=== PATIENT | female | born 1960 | race Two or more races ===

== ENCOUNTER → 2016-11-26 | Outpatient (CLI) | payer OTHER, MEDICAID ==
[~2016-11-26] MED LIST: LISI10TA4 PO; LISI20TA5 OR; PERC5TAB8 OR
[2016-11-26 18:26] LABS: ALBUMIN 3.1 GM/DL (3.2-5.2); ALBUMIN/GLOBULIN RATIO 0.82 (1.00-1.93); ALKALINE PHOSPHATASE 121 U/L (45-117); ALT/SGPT 23 U/L (12-78); ANION GAP 8 MEQ/L (8-16); AST/SGOT 15 U/L (15-37); BILIRUBIN,TOTAL 0.4 MG/DL (0.2-1.0); BLOOD UREA NITROGEN 15 MG/DL (7-18); CALCIUM LEVEL 8.9 MG/DL (8.5-10.1); CARBON DIOXIDE LEVEL 27 MEQ/L (21-32); CHLORIDE LEVEL 108 MEQ/L (98-107); CHOLESTEROL LEVEL 158 MG/DL (<200); CREATININE FOR GFR 0.96 MG/DL (0.55-1.02); GLOMERULAR FILTRATION RATE > 60.0 (>51); GLUCOSE, FASTING 128 MG/DL (70-105); POTASSIUM SERUM 4.4 MEQ/L (3.5-5.1); SODIUM LEVEL 143 MEQ/L (136-145); TOTAL PROTEIN 6.9 GM/DL (6.4-8.2); TRIGLYCERIDES LEVEL 354 MG/DL (<150)
== END ==
LOC: M SMT 13:03
PROVIDERS: ATTEND Family Medicine
DX: E78.5 Hyperlipidemia, unspecified (principal); E11.9 Type 2 diabetes mellitus without complications; K75.81 Nonalcoholic steatohepatitis (NASH); K31.84 Gastroparesis; Z86.010 Personal history of colon polyps; E55.9 Vitamin D deficiency, unspecified

== ENCOUNTER → 2016-11-26 | Outpatient (CLI) | payer OTHER, MEDICAID ==
[2016-11-26 18:35] LABS: MAGNESIUM LEVEL 2.1 MG/DL (1.8-2.4)
== END ==
LOC: M SMT 13:00
PROVIDERS: ATTEND Internal Medicine Gastroenterology
DX: K75.81 Nonalcoholic steatohepatitis (NASH) (principal); K21.9 Gastro-esophageal reflux disease without esophagitis; K31.84 Gastroparesis; Z86.010 Personal history of colon polyps; E55.9 Vitamin D deficiency, unspecified

== ENCOUNTER → 2016-12-21 | Outpatient (CLI) | payer OTHER, MEDICAID ==
[2016-12-21 13:23] LABS: MEAN CORPUSCULAR HEMOGLOBIN 24.4 pg (27.0-33.0); MEAN CORPUSCULAR HGB CONC 30.6 g/dl (32.0-36.5); MEAN CORPUSCULAR VOLUME 79.8 fl (80.0-96.0); RED CELL DISTRIBUTION WIDTH 16.9 % (11.5-14.5); WHITE BLOOD COUNT 8.9 K/mm3 (4.0-10.0)
[2016-12-21 13:54] LABS: FERRITIN 5 NG/ML (8-252); FOLATE > 24.0 NG/ML; VITAMIN B12 LEVEL 275 PG/ML
== END ==
LOC: M SMT 09:33
PROVIDERS: ATTEND Family Medicine
DX: D64.9 Anemia, unspecified (principal)

== ENCOUNTER → 2017-01-20 | Outpatient (CLI) | payer OTHER, MEDICAID ==
[~2017-01-20] MED LIST changes: +ACET1TAB16 PO; +B121000T PO; +CALCGRA15 PO; +FERR325T3 PO; +FOLI1TAB4 PO; +LYRI150C PO; +METH2.5TA PO; +METO-346 PO; +MULTCAP11 PO
[2017-01-20 19:01] LABS: BASO % 0.8 % (0.0-1.0); EOS # 0.3 K/mm3 (0.0-0.50); EOS % 5.5 % (0.0-3.0); LARGE UNSTAINED CELL # 0.1 K/mm3 (0.0-0.4); LARGE UNSTAINED CELL % 1.8 % (0.0-4.0); LYMPH # 1.8 K/mm3 (1.5-4.5); MEAN CORPUSCULAR HEMOGLOBIN 24.8 pg (27.0-33.0); MEAN CORPUSCULAR HGB CONC 30.2 g/dl (32.0-36.5); MONO # 0.3 K/mm3 (0.0-0.8); MONO % 5.5 % (0.0-5.0); NEUTROPHILS # 3.4 K/mm3 (1.8-7.7); NEUTROPHILS % 57.4 % (36.0-66.0); PLATELET COUNT, AUTOMATED 327 k/mm3 (150-450); RED CELL DISTRIBUTION WIDTH 17.7 % (11.5-14.5); WHITE BLOOD COUNT 5.8 K/mm3 (4.0-10.0)
[2017-01-20 19:05] LABS: ADD MORPHOLOGY? YES
[2017-01-20 19:11] LABS: ALBUMIN 2.9 GM/DL (3.2-5.2); ALBUMIN/GLOBULIN RATIO 0.81 (1.00-1.93); ALKALINE PHOSPHATASE 98 U/L (45-117); ALT/SGPT 24 U/L (12-78); ANION GAP 5 MEQ/L (8-16); AST/SGOT 18 U/L (15-37); BILIRUBIN,TOTAL 0.6 MG/DL (0.2-1.0); BLOOD UREA NITROGEN 11 MG/DL (7-18); CALCIUM LEVEL 8.5 MG/DL (8.5-10.1); CARBON DIOXIDE LEVEL 28 MEQ/L (21-32); CHLORIDE LEVEL 108 MEQ/L (98-107); CREATININE FOR GFR 0.99 MG/DL (0.55-1.02); FERRITIN 15 NG/ML (8-252); GLOMERULAR FILTRATION RATE > 60.0 (>51); GLUCOSE, FASTING 120 MG/DL (70-105); MAGNESIUM LEVEL 2.4 MG/DL (1.8-2.4); PERCENT SATURATION 68.2 % (13.2-37.4); PHOSPHORUS LEVEL 3.5 MG/DL (2.5-4.9); POTASSIUM SERUM 4.1 MEQ/L (3.5-5.1); SODIUM LEVEL 141 MEQ/L (136-145); TOTAL IRON BINDING CAPACITY 261 UG/DL (250-450); TOTAL PROTEIN 6.5 GM/DL (6.4-8.2)
[2017-01-20 19:49] LABS: ANISOCYTOSIS 1+; HYPOCHROMASIA 1+; MICROCYTOSIS 1+
[2017-01-21 12:01] LABS: PRETREATED FOLATE FOR RBCFOL 12.5 NG/ML
== END ==
LOC: M SMT 13:57
PROVIDERS: ATTEND Surgery
DX: K91.2 Postsurgical malabsorption, not elsewhere classified (principal); Z98.84 Bariatric surgery status

== ENCOUNTER → 2017-02-25 | Outpatient (CLI) | payer OTHER, MEDICAID | LOC: M SMT 14:00 | PROVIDERS: ATTEND Internal Medicine Gastroenterology | DX: E55.9 Vitamin D deficiency, unspecified (principal) ==

== ENCOUNTER → 2017-03-28 | Outpatient (CLI) | payer OTHER, MEDICAID ==
--- NOTE | 2017-03-28 11:10 | REP ---
PA and lateral chest: Comparison is 09/08/2015. There is a cervical spine stabilization plate, unchanged. The lung osuna are clear. The cardiac size is normal The felicita, mediastinum, and bony thorax are unremarkable. Impression: Negative PA and lateral chest. There is no interval change
[2017-03-28 17:53] LABS: ALBUMIN 3.1 GM/DL (3.2-5.2); ANION GAP 6 MEQ/L (8-16); BLOOD UREA NITROGEN 10 MG/DL (7-18); CARBON DIOXIDE LEVEL 28 MEQ/L (21-32); CHLORIDE LEVEL 111 MEQ/L (98-107); CREATININE FOR GFR 0.82 MG/DL (0.55-1.02); GLOMERULAR FILTRATION RATE > 60.0 (>51); GLUCOSE, FASTING 81 MG/DL (70-105); PHOSPHORUS LEVEL 4.2 MG/DL (2.5-4.9); SODIUM LEVEL 145 MEQ/L (136-145)
[2017-03-28 19:25] LABS: CALCIUM OXALATE CRYSTALS LARGE
== END ==
LOC: M CLY 09:49
PROVIDERS: ATTEND Dentist Oral and Maxillofacial Surgery
DX: Z01.818 Encounter for other preprocedural examination (principal); K08.409 Partial loss of teeth, unspecified cause, unspecified class; E66.01 Morbid (severe) obesity due to excess calories; E11.9 Type 2 diabetes mellitus without complications; I10 Essential (primary) hypertension; E78.5 Hyperlipidemia, unspecified; M54.16 Radiculopathy, lumbar region; K21.9 Gastro-esophageal reflux disease without esophagitis; M06.9 Rheumatoid arthritis, unspecified; M25.551 Pain in right hip
CPT/HCPCS: 71020; 80069; 81001; 83036; 83630; G0463

== ENCOUNTER → 2017-03-28 | Outpatient (REF) | payer OTHER, MEDICAID | LOC: M SFHCCLAY 09:31 | PROVIDERS: ATTEND Family Medicine | DX: E11.9 Type 2 diabetes mellitus without complications (principal) ==

== ENCOUNTER → 2017-03-28 | Outpatient (REF) | payer OTHER, MEDICAID | LOC: M LAB REF 11:15 | PROVIDERS: ATTEND Internal Medicine Gastroenterology | DX: R19.7 Diarrhea, unspecified (principal) ==

== ENCOUNTER 2017-04-01 07:56 | Day surgery (SDC) | payer OTHER, MEDICAID ==
[~2017-04-01] VITALS: Ht 167.6 cm; Wt 115.2 kg
[~2017-04-01 07:56] MED LIST changes: -ACET1TAB16 PO
[2017-04-01] MEDS ORDERED: LIDOCAINE 1% SDV 5 ML VIAL SQ ONE (08:00)
[2017-04-01] MEDS ORDERED: LR 1,000 ML IV ONE (08:00)
[2017-04-01] MEDS ORDERED: LIDOCAINE 2% W/ EPINEPHRINE 1.7 ML DENTAL INJ As Ordered ONE (08:37)
[2017-04-01] MEDS ORDERED: MIDAZOLAM INJ 2 MG/2 ML VIAL (J2250) As Ordered ONE (08:45)
[2017-04-01] MEDS ORDERED: PROPOFOL 200 MG/20 ML VIAL As Ordered ONE (08:45)
[2017-04-01] MEDS ORDERED: ROCURONIUM BROMIDE 50 MG/5 ML VIAL/SYRINGE As Ordered ONE (08:45)
[2017-04-01] MEDS ORDERED: fentaNYL 100 MCG/2 ML INJECTION (J3010) As Ordered ONE (08:45)
[2017-04-01] MEDS ORDERED: LIDOCAINE 2% INJ 100 MG/5 ML SDV (FOR ANES.) As Ordered ONE (08:45)
[2017-04-01] MEDS ORDERED: ONDANSETRON 4MG/2ML VIAL (J2405) As Ordered ONE (08:45)
[2017-04-01] MEDS ORDERED: SEVOFLURANE INHAL SOLN 250 ML BTL As Ordered ONE (08:47)
[2017-04-01] MEDS ORDERED: ACET1TAB16 PO (09:14)
[2017-04-01] MEDS ORDERED: dexameTHASONE 4 MG/ML 1ML VIAL (J1100) As Ordered ONE (09:22)
[2017-04-01] MEDS ORDERED: GLYCOPYRROLATE INJ 0.2 MG/ML 2 ML VIAL As Ordered ONE (09:44)
[2017-04-01] MEDS ORDERED: NEOSTIGMINE 1MG/ML 5 ML SYRINGE (J2710) As Ordered ONE (09:44)
[2017-04-01] MEDS ORDERED: LABETALOL HCL 100 MG/20 ML VIAL As Ordered ONE (09:56)
--- NOTE | 2017-04-01 10:33 | RO ---
DATE OF PROCEDURE: 04/01/2017 PREPROCEDURE DIAGNOSIS: Carious non-restorable teeth numbers 1, 16, 31 and 32. POSTPROCEDURE DIAGNOSIS: Carious non-restorable teeth numbers 1, 16, 31 and 32. PROCEDURE: Surgical removal of teeth numbers 1,16, 31 and 32. SURGEON: Dr. Saulo Cortez. DRUMS TEACHER: ANESTHESIA: General endotracheal. INDICATION: This patient is a 56-year-old female with a complicated medical history including hypertension, rheumatoid arthritis, diabetes and anxiety on multiple medications. Due to the extent of the procedure and patient's history, it was felt necessary to be performed in the operating room under general anesthesia. DESCRIPTION OF PROCEDURE: The patient was brought to the operating room per anesthesia and placed in supine on the operating room table, wherein general endotracheal anesthesia was undertaken without difficult. After using sterile prep and drape for intraoral procedure was performed a throat pack was placed. 2.5 mL of Xylocaine with epinephrine was injected along the surgical sites after placement of the throat pack and the usual sterile prep and drape for intraoral procedure was performed. Attention first turned to tooth #16 after laying localized flap buccally and raised with the periosteal elevator, buccal bone was removed as necessary for access and then the tooth was then elevated and delivered with upper forceps. The area as curetted. The tissues reapproximated. Gelfoam placed for hemostasis. Attention then turned to the right side after movement of the oral endotracheal tube from the right to the left and re-secured per anesthesia. Attention then turned to teeth numbers 32 and 31. A 15-blade used to make a full thickness periosteal incision and carried from the right external oblique ridge forward to the area of the edentulous 30. Full thickness flap was then raised with the periosteal elevator exposing the area. Buccal bone was removed with a Eid drill and copious sterile saline by way of bone trench along the teeth. Tooth crown of #31 fractured off and the roots were then having to be received separately. Tooth #32 removed in toto. The buccal bone was then smoothed. Sulcus was curetted irrigated, copiously enclosed with Gelfoam and #3-0 gut interrupted sutures for hemostasis. Attention, lastly turned to tooth #1. Again, after laying localized buccal flap , buccal bone was then removed as necessary for access. The tooth was then elevated and delivered with an upper forceps. The socket was curetted. Gelfoam was placed. Tissues reapproximated. At the termination of the procedure, the oropharynx was inspected and found to be free of debris. A throat pack was removed and the patient was awakened per anesthesia. Estimated blood loss was less than 10 mL. Fluids of 800 mL of crystalloid solution. Needle and sponge count was correct. The patient was extubated in the operating room and taken to the recovery room breathing spontaneously in stable condition. Teeth were sent for identification only to pathology. MARY
[2017-04-01] MEDS ORDERED: ACETAMINOPHEN 325 MG TAB As Ordered ONE (10:45)
[2017-04-01] MEDS ORDERED: ACETAMINOPHEN TAB 650MG DOSE (2X325MG) PO ONE (11:00)
[2017-04-01] MEDS ORDERED: LR 1,000 ML IV SCH (11:00)
[2017-04-01] MEDS ORDERED: ONDANSETRON 4MG/2ML VIAL (J2405) IV PRN (11:00)
[2017-04-01] MEDS ORDERED: fentaNYL 100 MCG/2 ML INJECTION (J3010) IV PRN (11:00)
[2017-04-01 11:25] VITALS: BP 149/65
== END 2017-04-01 11:40 | disposition home or self-care (01) ==
LOC: M SDC 07:56
PROVIDERS: ATTEND Dentist Oral and Maxillofacial Surgery
DX: K02.9 Dental caries, unspecified (principal); K08.89 Other specified disorders of teeth and supporting structures; I10 Essential (primary) hypertension; M06.9 Rheumatoid arthritis, unspecified; E11.9 Type 2 diabetes mellitus without complications; F41.9 Anxiety disorder, unspecified; E66.01 Morbid (severe) obesity due to excess calories; E78.5 Hyperlipidemia, unspecified; M54.16 Radiculopathy, lumbar region; K21.9 Gastro-esophageal reflux disease without esophagitis; M25.551 Pain in right hip; K44.9 Diaphragmatic hernia without obstruction or gangrene; R06.83 Snoring; G47.30 Sleep apnea, unspecified; Z88.5 Allergy status to narcotic agent; Z88.8 Allergy status to other drugs, medicaments and biological substances; Z91.040 Latex allergy status; Z91.041 Radiographic dye allergy status; Z91.048 Other nonmedicinal substance allergy status; Z79.899 Other long term (current) drug therapy; Z87.891 Personal history of nicotine dependence; Z98.84 Bariatric surgery status; Z86.79 Personal history of other diseases of the circulatory system; Z90.710 Acquired absence of both cervix and uterus
CPT/HCPCS: 41899; 88300; J1100; J2250; J2405; J2710; J3010

== ENCOUNTER 2017-06-22 08:17 | Outpatient (RCR) | payer OTHER, MEDICAID | END 2017-07-10 | LOC: M PT 07-06 14:22 | DX: Z51.89 Encounter for other specified aftercare (principal); M70.60 Trochanteric bursitis, unspecified hip; M62.9 Disorder of muscle, unspecified | CPT/HCPCS: 97110 ==

== ENCOUNTER → 2017-06-29 | Outpatient (CLI) | payer OTHER, MEDICAID ==
[~2017-06-29] MED LIST changes: +ACET1TAB16 PO
--- NOTE | 2017-06-29 20:12 | REP ---
Clinical: Followup renal cyst. Comparison: 06/28/2016. Technique: Real time saeed scale ultrasound examination using curved array transducer. Findings: The kidneys are normal in reniform shape and demonstrate increased central sinus fat suggesting medical renal disease. No evidence for hydronephrosis or perinephric stranding. Right kidney measures 11.9 x 6.5 x 4.0 cm and includes 17 x 16 x 14 mm upper pole simple cyst. The second cyst identified on prior examination is not visualized on current exam. No evidence for nephrolithiasis or mass lesion. Left kidney measures 11.8 x 5.3 x 5.9 cm without cyst and includes 5.5 mm echogenic focus in the lower pole which is nonspecific and may represent small angiomyolipoma or calcification. Bladder is grossly unremarkable. Impression: 1. Right kidney currently measures a single 17 mm upper pole simple cyst, and the second cyst identified on prior examination is no longer visible. 2. 5.5 mm calcification in the lower pole left kidney is nonspecific and may represent small calcification or angiomyolipoma. Signed by Mendel Colon MD 06/29/2017 05:03 P
== END ==
LOC: M RAD 10:52
PROVIDERS: ATTEND Urology
DX: Q61.00 Congenital renal cyst, unspecified (principal)

== ENCOUNTER → 2017-06-30 | Outpatient (CLI) | payer OTHER, MEDICAID ==
--- NOTE | 2017-06-30 09:16 | REP ---
Right shoulder series: Three views. History: Right shoulder pain for 2 weeks. No injury or trauma. Comparison right shoulder radiographs are from February 12, 2011. Findings: The right glenohumeral and acromioclavicular joints are normally aligned. There is a faint calcific density at the inferior margin of the glenohumeral articulation which may reflect calcific tendonitis change. There is also some bony spurring at the AC joint. Periarticular soft tissues are otherwise unremarkable. Impression: Mild osteoarthritic spurring at the AC joint and small calcific density inferior to the glenohumeral articulation may reflect tendonitis or bursitis.
== END ==
LOC: M CLY 08:06
PROVIDERS: ATTEND Family Medicine
DX: M25.70 Osteophyte, unspecified joint (principal); R93.7 Abnormal findings on diagnostic imaging of other parts of musculoskeletal system

== ENCOUNTER → 2017-07-05 | Outpatient (CLI) | payer OTHER, MEDICAID ==
[2017-07-05 09:56] LABS: BASO # 0.1 10^3/uL (0.0-0.2); BASO % 0.9 % (0.0-1.0); EOS # 0.2 10^3/uL (0.0-0.50); EOS % 2.9 % (0.0-3.0); IMMATURE GRANULOCYTE % 0.5 % (0-0); LYMPH # 2.5 10^3/uL (1.5-4.5); LYMPH % 31.7 % (24.0-44.0); MEAN CORPUSCULAR HEMOGLOBIN 27.8 pg (27.0-33.0); MEAN CORPUSCULAR HGB CONC 31.7 g/dl (32.0-36.5); MEAN CORPUSCULAR VOLUME 87.4 fl (80.0-96.0); MONO # 0.4 10^3/uL (0.0-0.8); MONO % 5.2 % (0.0-5.0); NEUTROPHILS # 4.7 10^3/uL (1.8-7.7); NEUTROPHILS % 58.8 % (36.0-66.0); PLATELET COUNT, AUTOMATED 359 10^3/uL (150-450); WHITE BLOOD COUNT 7.9 10^3/uL (4.0-10.0)
[2017-07-05 10:23] LABS: ALBUMIN 3.3 GM/DL (3.2-5.2); ALBUMIN/GLOBULIN RATIO 0.87 (1.00-1.93); ALKALINE PHOSPHATASE 118 U/L (45-117); ALT/SGPT 19 U/L (12-78); ANION GAP 6 MEQ/L (8-16); AST/SGOT 16 U/L (7-37); BILIRUBIN,TOTAL 0.5 MG/DL (0.2-1.0); BLOOD UREA NITROGEN 11 MG/DL (7-18); CALCIUM LEVEL 8.6 MG/DL (8.5-10.1); CARBON DIOXIDE LEVEL 29 MEQ/L (21-32); CHLORIDE LEVEL 110 MEQ/L (98-107); CREATININE FOR GFR 0.84 MG/DL (0.55-1.02); FERRITIN 82 NG/ML (8-252); GLOMERULAR FILTRATION RATE > 60.0 (>51); GLUCOSE, FASTING 112 MG/DL (70-105); MAGNESIUM LEVEL 2.3 MG/DL (1.8-2.4); PHOSPHORUS LEVEL 4.4 MG/DL (2.5-4.9); POTASSIUM SERUM 4.2 MEQ/L (3.5-5.1); SODIUM LEVEL 145 MEQ/L (136-145); TOTAL PROTEIN 7.1 GM/DL (6.4-8.2)
[2017-07-05 10:27] LABS: VITAMIN B12 LEVEL 1179 PG/ML (247-911)
[2017-07-05 11:53] LABS: PRETREATED FOLATE FOR RBCFOL 16.3 NG/ML
== END ==
LOC: M LAB 09:19
PROVIDERS: ATTEND Surgery
DX: E55.9 Vitamin D deficiency, unspecified (principal); K91.2 Postsurgical malabsorption, not elsewhere classified; E61.1 Iron deficiency; Z98.84 Bariatric surgery status

== ENCOUNTER 2017-07-12 14:25 | Outpatient (RCR) | payer OTHER, MEDICAID | END 2017-08-10 | LOC: M PT 14:25 | DX: Z51.89 Encounter for other specified aftercare (principal); M71.551 Other bursitis, not elsewhere classified, right hip; S76.311A Strain of muscle, fascia and tendon of the posterior muscle group at thigh level, right thigh, initial encounter | CPT/HCPCS: 97110 ==

== ENCOUNTER → 2017-07-25 | Outpatient (CLI) | payer OTHER, MEDICAID | LOC: M SMT 10:50 | DX: N20.0 Calculus of kidney (principal) | CPT/HCPCS: 74018 ==

== ENCOUNTER 2017-08-04 15:28 | Outpatient (RCR) | payer OTHER, MEDICAID | END 2017-08-10 | LOC: M PT 15:28 | DX: Z51.89 Encounter for other specified aftercare (principal); M25.511 Pain in right shoulder | CPT/HCPCS: 97110 ==

== ENCOUNTER → 2017-08-15 | Outpatient (CLI) | payer OTHER, MEDICAID | LOC: M RAD 16:52 | DX: N20.0 Calculus of kidney (principal) | CPT/HCPCS: 74176 ==

== ENCOUNTER 2017-08-16 14:10 | Outpatient (RCR) | payer OTHER, MEDICAID | END 2017-09-07 | LOC: M PT 14:10 | DX: Z51.89 Encounter for other specified aftercare (principal); M70.61 Trochanteric bursitis, right hip; S76.011A Strain of muscle, fascia and tendon of right hip, initial encounter | CPT/HCPCS: 97110 ==

== ENCOUNTER → 2017-10-27 | Outpatient (REF) | payer OTHER, MEDICAID ==
[2017-10-28 11:33] LABS: BASO # 0.1 10^3/uL (0.0-0.2); BASO % 1.3 % (0.0-1.0); EOS # 0.4 10^3/uL (0.0-0.50); EOS % 5.3 % (0.0-3.0); HEMATOCRIT 38.2 % (36.0-47.0); HEMOGLOBIN 12.2 g/dl (12.0-15.5); IMMATURE GRANULOCYTE % 0.4 % (0-3.0); LYMPH # 2.2 10^3/uL (1.5-4.5); LYMPH % 31.5 % (24.0-44.0); MEAN CORPUSCULAR HEMOGLOBIN 28.4 pg (27.0-33.0); MEAN CORPUSCULAR HGB CONC 31.9 g/dl (32.0-36.5); MEAN CORPUSCULAR VOLUME 88.8 fl (80.0-96.0); MONO # 0.6 10^3/uL (0.0-0.8); MONO % 8.5 % (0.0-5.0); NEUTROPHILS # 3.7 10^3/uL (1.8-7.7); PLATELET COUNT, AUTOMATED 304 10^3/uL (150-450); RED CELL DISTRIBUTION WIDTH 13.2 % (11.5-14.5)
[2017-10-28 11:53] LABS: ANION GAP 3 MEQ/L (8-16); BLOOD UREA NITROGEN 11 MG/DL (7-18); CALCIUM LEVEL 8.6 MG/DL (8.5-10.1); CARBON DIOXIDE LEVEL 30 MEQ/L (21-32); CHLORIDE LEVEL 113 MEQ/L (98-107); CREATININE FOR GFR 0.77 MG/DL (0.55-1.30); GLOMERULAR FILTRATION RATE > 60.0 (>51); GLUCOSE, FASTING 105 MG/DL (70-100); POTASSIUM SERUM 4.1 MEQ/L (3.5-5.1); SODIUM LEVEL 146 MEQ/L (136-145)
== END ==
LOC: M SFHCCLAY 14:18
DX: M06.9 Rheumatoid arthritis, unspecified (principal); I10 Essential (primary) hypertension; Z98.84 Bariatric surgery status
CPT/HCPCS: 80048

== ENCOUNTER 2017-11-03 06:55 | Outpatient (RCR) | payer OTHER, MEDICAID | END 2017-11-07 | LOC: M PT 06:55 | DX: Z51.89 Encounter for other specified aftercare (principal); M75.01 Adhesive capsulitis of right shoulder | CPT/HCPCS: 97110 ==

== ENCOUNTER 2017-12-13 10:34 | Outpatient (RCR) | payer OTHER, MEDICAID | END 2018-01-07 | LOC: M PT 10:34 | DX: Z51.89 Encounter for other specified aftercare (principal); M75.01 Adhesive capsulitis of right shoulder | CPT/HCPCS: 97110 ==

== ENCOUNTER → 2017-12-27 | Outpatient (CLI) | payer OTHER, MEDICAID ==
[2017-12-27 15:15] LABS: BASO # 0.1 10^3/uL (0.0-0.2); BASO % 1.7 % (0.0-1.0); EOS # 0.5 10^3/uL (0.0-0.50); EOS % 7.4 % (0.0-3.0); HEMATOCRIT 40.4 % (36.0-47.0); IMMATURE GRANULOCYTE % 0.1 % (0-3.0); LYMPH # 2.4 10^3/uL (1.5-4.5); LYMPH % 33.9 % (24.0-44.0); MEAN CORPUSCULAR HEMOGLOBIN 28.5 pg (27.0-33.0); MEAN CORPUSCULAR HGB CONC 32.2 g/dl (32.0-36.5); MEAN CORPUSCULAR VOLUME 88.6 fl (80.0-96.0); MONO # 0.5 10^3/uL (0.0-0.8); MONO % 6.9 % (0.0-5.0); NEUTROPHILS # 3.6 10^3/uL (1.8-7.7); PLATELET COUNT, AUTOMATED 321 10^3/uL (150-450); RED BLOOD COUNT 4.56 10^6/uL (4.00-5.40); RED CELL DISTRIBUTION WIDTH 13.2 % (11.5-14.5); WHITE BLOOD COUNT 7.2 10^3/uL (4.0-10.0)
[2017-12-27 15:17] LABS: HEMATOCRIT 40.4 % (36.0-47.0)
[2017-12-27 15:40] LABS: TOTAL 25(OH) VITAMIN D 22.1 NG/ML (30.0-100.0); VITAMIN B12 LEVEL 872 PG/ML (247-911)
[2017-12-27 17:30] LABS: ALBUMIN 3.2 GM/DL (3.2-5.2); ALBUMIN/GLOBULIN RATIO 0.82 (1.00-1.93); ALKALINE PHOSPHATASE 116 U/L (45-117); ALT/SGPT 26 U/L (12-78); ANION GAP 8 MEQ/L (8-16); AST/SGOT 16 U/L (7-37); BILIRUBIN,TOTAL 0.4 MG/DL (0.2-1.0); BLOOD UREA NITROGEN 16 MG/DL (7-18); CALCIUM LEVEL 8.6 MG/DL (8.5-10.1); CARBON DIOXIDE LEVEL 30 MEQ/L (21-32); CHLORIDE LEVEL 107 MEQ/L (98-107); CREATININE FOR GFR 0.96 MG/DL (0.55-1.30); FERRITIN 53 NG/ML (8-252); GLOMERULAR FILTRATION RATE > 60.0 (>51); GLUCOSE, FASTING 76 MG/DL (70-100); IRON (FE) 46 UG/DL (50-170); MAGNESIUM LEVEL 2.1 MG/DL (1.8-2.4); PERCENT SATURATION 17.7 % (13.2-45.0); POTASSIUM SERUM 4.2 MEQ/L (3.5-5.1); SODIUM LEVEL 145 MEQ/L (136-145); TOTAL IRON BINDING CAPACITY 260 UG/DL (250-450); TOTAL PROTEIN 7.1 GM/DL (6.4-8.2)
[2017-12-27 19:11] LABS: ESTIMATED AVERAGE GLUCOSE 105 MG/DL (60-110); HEMOGLOBIN A1c 5.3 %
[2017-12-30 12:02] LABS: PRETREATED FOLATE FOR RBCFOL 11.3 NG/ML; RBC FOLATE 587.4 NG/ML (280-791)
== END ==
LOC: M LAB 14:31
DX: K91.2 Postsurgical malabsorption, not elsewhere classified (principal); Z98.84 Bariatric surgery status; E55.9 Vitamin D deficiency, unspecified
CPT/HCPCS: 83550

== ENCOUNTER 2018-02-06 15:42 | Outpatient (RCR) | payer OTHER, MEDICAID | END 2018-02-07 | disposition home or self-care (01) | LOC: M PT 15:42 | DX: Z47.89 Encounter for other orthopedic aftercare (principal); M75.41 Impingement syndrome of right shoulder; M25.511 Pain in right shoulder | CPT/HCPCS: 97162 ==

== ENCOUNTER 2018-02-13 17:10 | Outpatient (RCR) | payer OTHER, MEDICAID | END 2018-03-10 | LOC: M PT 17:10 | DX: Z47.89 Encounter for other orthopedic aftercare (principal); M75.41 Impingement syndrome of right shoulder; M25.511 Pain in right shoulder; M75.01 Adhesive capsulitis of right shoulder | CPT/HCPCS: 97110 ==

== ENCOUNTER 2018-03-22 15:15 | Outpatient (RCR) | payer OTHER, MEDICAID | END 2018-04-09 | LOC: M PT 15:15 | DX: Z47.89 Encounter for other orthopedic aftercare (principal); M75.01 Adhesive capsulitis of right shoulder; M25.511 Pain in right shoulder; M75.41 Impingement syndrome of right shoulder | CPT/HCPCS: 97110 ==

== ENCOUNTER 2018-05-03 09:26 | Outpatient (RCR) | payer OTHER, MEDICAID | END 2018-05-10 | LOC: M PT 09:26 | DX: Z47.89 Encounter for other orthopedic aftercare (principal); M75.01 Adhesive capsulitis of right shoulder; M75.41 Impingement syndrome of right shoulder; M25.511 Pain in right shoulder | CPT/HCPCS: 97110 ==

== ENCOUNTER 2018-05-16 12:11 | Outpatient (RCR) | payer OTHER, MEDICAID | END 2018-06-09 | LOC: M PT 12:11 | DX: M75.01 Adhesive capsulitis of right shoulder (principal); M75.41 Impingement syndrome of right shoulder; M25.511 Pain in right shoulder | CPT/HCPCS: 97110 ==

== ENCOUNTER 2018-06-13 12:08 | Outpatient (RCR) | payer OTHER, MEDICAID ==
[~2018-06-13 12:08] MED LIST changes: -FOLI1TAB4 PO; +FOLI1TAB5 PO; +METH2.5T48 PO; -METH2.5TA PO
[2018-06-13] MEDS ORDERED: LOSA25TA33 PO (14:19)
[2018-06-13] MEDS ORDERED: CYCL5TAB PO (17:36)
== END 2018-07-10 ==
LOC: M PT 12:08
PROVIDERS: ATTEND Orthopaedic Surgery
DX: Z47.89 Encounter for other orthopedic aftercare (principal); M75.01 Adhesive capsulitis of right shoulder; M75.41 Impingement syndrome of right shoulder; M25.511 Pain in right shoulder
CPT/HCPCS: 97110; 97140; G8985; G8986

== ENCOUNTER 2018-06-13 13:58 | Emergency (ER) | payer OTHER, MEDICAID ==
[2018-06-13] MEDS: MORPHINE 2 MG/ML 1ML SYRINGE (J2270) IV (15:29)
== END 2018-06-13 18:43 | disposition home or self-care (01) ==
LOC: M ED 13:58
DX: S00.03XA Contusion of scalp, initial encounter (principal); V43.52XA Car driver injured in collision with other type car in traffic accident, initial encounter; Y92.099 Unspecified place in other non-institutional residence as the place of occurrence of the external cause; Y93.9 Activity, unspecified; Y99.9 Unspecified external cause status; I10 Essential (primary) hypertension; M50.321 Other cervical disc degeneration at C4-C5 level; Z98.1 Arthrodesis status; I51.7 Cardiomegaly; J34.1 Cyst and mucocele of nose and nasal sinus; M46.06 Spinal enthesopathy, lumbar region; M51.34 Other intervertebral disc degeneration, thoracic region; Z79.899 Other long term (current) drug therapy; Z91.041 Radiographic dye allergy status; Z91.013 Allergy to seafood; Z91.89 Other specified personal risk factors, not elsewhere classified; Z91.040 Latex allergy status; Z88.8 Allergy status to other drugs, medicaments and biological substances; Z88.5 Allergy status to narcotic agent
CPT/HCPCS: J2270

== ENCOUNTER → 2018-06-22 | Outpatient (CLI) | payer OTHER, MEDICAID | LOC: M CLY 10:35 | DX: R07.89 Other chest pain (principal) | CPT/HCPCS: 71100 ==

== ENCOUNTER → 2018-07-14 | Outpatient (CLI) | payer OTHER ==
[~2018-07-14] MED LIST changes: +CYCL5TAB PO; +FOLI1TAB11 PO; -FOLI1TAB5 PO; +LOSA25TA14 PO
--- NOTE | 2018-07-14 11:57 | REP ---
MR BRAIN WITHOUT CONTRAST: HISTORY: Post-traumatic headache. COMPARISON: CT 06/13/2018 Several punctate areas of increased signal intensity on T2-weighted images are present in the subcortical white matter. This represents small vessel ischemic disease. There is no intraparenchymal hemorrhage, infarct, mass or midline shift. The ventricular system is normal in appearance. The cortical sulci are dilated consistent with minimal volume loss. There is no extracerebral collection. A retention cyst is present in the left maxillary sinus. IMPRESSION: 1. Minimal small vessel ischemic disease. 2. Minimal volume loss. Electronically Signed by Bill Medrano MD 07/14/2018 11:59 A
== END ==
LOC: M PLARAD 08:58
PROVIDERS: ATTEND Family Medicine
DX: R90.82 White matter disease, unspecified (principal); G44.311 Acute post-traumatic headache, intractable; S00.03XD Contusion of scalp, subsequent encounter; V89.2XXD Person injured in unspecified motor-vehicle accident, traffic, subsequent encounter; Y92.410 Unspecified street and highway as the place of occurrence of the external cause

== ENCOUNTER → 2018-10-03 | Outpatient (REF) | payer MEDICARE, MEDICAID, OTHER ==
[2018-10-03 19:00] LABS: ALBUMIN 3.4 GM/DL (3.2-5.2); ALT/SGPT 25 U/L (12-78); AMYLASE 36 U/L (25-115); BASO # 0.1 10^3/uL (0.0-0.2); BASO % 1.3 % (0.0-1.0); BILIRUBIN,TOTAL 0.5 MG/DL (0.2-1.0); BLOOD UREA NITROGEN 10 MG/DL (7-18); CALCIUM LEVEL 8.6 MG/DL (8.5-10.1); CARBON DIOXIDE LEVEL 28 MEQ/L (21-32); CHLORIDE LEVEL 109 MEQ/L (98-107); EOS # 0.3 10^3/uL (0.0-0.50); EOS % 3.8 % (0.0-3.0); GLOMERULAR FILTRATION RATE > 60.0 (>51); GLUCOSE, FASTING 91 MG/DL (70-100); HEMATOCRIT 41.1 % (36.0-47.0); HEMOGLOBIN 13.1 g/dl (12.0-15.5); LIPASE 133 U/L (73-393); LYMPH # 2.2 10^3/uL (1.5-4.5); LYMPH % 31.9 % (24.0-44.0); MEAN CORPUSCULAR HEMOGLOBIN 28.7 pg (27.0-33.0); MEAN CORPUSCULAR HGB CONC 31.9 g/dl (32.0-36.5); MEAN CORPUSCULAR VOLUME 90.1 fl (80.0-96.0); MONO # 0.6 10^3/uL (0.0-0.8); MONO % 8.3 % (0.0-5.0); NEUTROPHILS # 3.8 10^3/uL (1.8-7.7); NEUTROPHILS % 54.6 % (36.0-66.0); PLATELET COUNT, AUTOMATED 324 10^3/uL (150-450); POTASSIUM SERUM 4.1 MEQ/L (3.5-5.1); RED BLOOD COUNT 4.56 10^6/uL (4.00-5.40); SODIUM LEVEL 144 MEQ/L (136-145); TOTAL PROTEIN 6.7 GM/DL (6.4-8.2)
== END ==
LOC: M SFHCCLAY 11:09
PROVIDERS: ATTEND Family Medicine
DX: R10.11 Right upper quadrant pain (principal)
CPT/HCPCS: 80053; 82150; 83690; 85025; G0463

== ENCOUNTER → 2018-11-13 | Outpatient (REF) | payer MEDICARE, MEDICAID, OTHER ==
[2018-11-13 19:31] LABS: RUBELLA IgG QUALITATIVE IMMUNE (IMMUNE)
== END ==
LOC: M SFHCCLAY 11:20
PROVIDERS: ATTEND Family Medicine
DX: Z01.84 Encounter for antibody response examination (principal)
CPT/HCPCS: 86580; 86762; 86765; G0463

== ENCOUNTER → 2018-12-05 | Outpatient (CLI) | payer MEDICARE, MEDICAID, OTHER ==
[2018-12-05 19:38] LABS: ALBUMIN 3.1 GM/DL (3.2-5.2); ALT/SGPT 27 U/L (12-78); BILIRUBIN,TOTAL 0.5 MG/DL (0.2-1.0); BLOOD UREA NITROGEN 13 MG/DL (7-18); CALCIUM LEVEL 8.7 MG/DL (8.5-10.1); CARBON DIOXIDE LEVEL 29 MEQ/L (21-32); CHLORIDE LEVEL 109 MEQ/L (98-107); CREATININE FOR GFR 0.81 MG/DL (0.55-1.30); GLOMERULAR FILTRATION RATE > 60.0 (>51); GLUCOSE, FASTING 80 MG/DL (70-100); IRON (FE) 39 UG/DL (50-170); MAGNESIUM LEVEL 2.3 MG/DL (1.8-2.4); PERCENT SATURATION 13.1 % (13.2-45.0); PHOSPHORUS LEVEL 4.2 MG/DL (2.5-4.9); POTASSIUM SERUM 4.4 MEQ/L (3.5-5.1); SODIUM LEVEL 146 MEQ/L (136-145); TOTAL IRON BINDING CAPACITY 297 UG/DL (250-450); TOTAL PROTEIN 6.8 GM/DL (6.4-8.2)
[2018-12-05 19:45] LABS: FOLATE > 24.0 NG/ML (>5.4); TOTAL 25(OH) VITAMIN D 25.3 NG/ML (30.0-100.0); VITAMIN B12 LEVEL 1162 PG/ML (247-911)
[2018-12-05 20:00] LABS: BASO # 0.1 10^3/uL (0.0-0.2); BASO % 1.2 % (0.0-1.0); EOS # 0.3 10^3/uL (0.0-0.50); EOS % 4.5 % (0.0-3.0); HEMATOCRIT 39.9 % (36.0-47.0); HEMOGLOBIN 12.5 g/dl (12.0-15.5); LYMPH % 29.3 % (24.0-44.0); MEAN CORPUSCULAR HEMOGLOBIN 28.3 pg (27.0-33.0); MEAN CORPUSCULAR HGB CONC 31.3 g/dl (32.0-36.5); MEAN CORPUSCULAR VOLUME 90.3 fl (80.0-96.0); MONO # 0.6 10^3/uL (0.0-0.8); MONO % 8.9 % (0.0-5.0); NEUTROPHILS # 3.8 10^3/uL (1.8-7.7); PLATELET COUNT, AUTOMATED 340 10^3/uL (150-450); RED BLOOD COUNT 4.42 10^6/uL (4.00-5.40); WHITE BLOOD COUNT 6.9 10^3/uL (4.0-10.0)
[2018-12-05 20:19] LABS: HEMOGLOBIN A1c 5.4 %
[2018-12-05 20:34] LABS: HEMATOCRIT 39.9 % (36.0-47.0)
== END ==
LOC: M SMT 13:47
PROVIDERS: ATTEND Physician Assistant
DX: K92.1 Melena (principal); Z98.84 Bariatric surgery status; E55.9 Vitamin D deficiency, unspecified

== ENCOUNTER → 2019-06-25 | Outpatient (REF) | payer MEDICARE, MEDICAID ==
[2019-06-25 16:45] LABS: ALBUMIN 3.3 GM/DL (3.2-5.2); ALT/SGPT 26 U/L (12-78); BILIRUBIN,TOTAL 0.4 MG/DL (0.2-1.0); BLOOD UREA NITROGEN 12 MG/DL (7-18); CALCIUM LEVEL 8.9 MG/DL (8.5-10.1); CARBON DIOXIDE LEVEL 32 MEQ/L (21-32); CHLORIDE LEVEL 110 MEQ/L (98-107); CREATININE FOR GFR 0.85 MG/DL (0.55-1.30); GLOMERULAR FILTRATION RATE > 60.0 (>51); GLUCOSE, FASTING 84 MG/DL (70-100); POTASSIUM SERUM 4.4 MEQ/L (3.5-5.1); SODIUM LEVEL 144 MEQ/L (136-145)
[2019-06-25 16:49] LABS: HEMOGLOBIN A1c 5.7 %
== END ==
LOC: M SFHCCLAY 10:51
PROVIDERS: ATTEND Family Medicine
DX: E11.9 Type 2 diabetes mellitus without complications (principal)
CPT/HCPCS: 80053; 83036; G0463

== ENCOUNTER 2019-08-16 10:27 | Emergency (ER) | payer MEDICARE, MEDICAID ==
[~2019-08-16] VITALS: Ht 167.6 cm; Wt 107.8 kg
[2019-08-16] MEDS ORDERED: TIZA4TAB4 (11:49)
[2019-08-16] MEDS ORDERED: OMEP-218 (11:49)
[2019-08-16] MEDS ORDERED: FAMO40TA3 (11:49)
[2019-08-16] MEDS ORDERED: PREG300C (11:49)
[2019-08-16] MEDS ORDERED: ESCI5SOL3 PO (11:49)
--- NOTE | 2019-08-16 13:01 | REP ---
Left humerus two views : There is no fracture or dislocation. Mineralization and joint spaces are normal. There are no calcifications or foreign bodies. Impression: Negative left humerus . Electronically Signed by Cholo Esparza MD 08/16/2019 12:53 P
--- NOTE | 2019-08-16 13:02 | REP ---
Left wrist four views : There is no fracture or dislocation. Mineralization and joint spaces are normal. There are no calcifications or foreign bodies. Impression: Negative left wrist . Electronically Signed by Cholo Esparza MD 08/16/2019 12:54 P
--- NOTE | 2019-08-16 13:03 | REP ---
Right great toe four views : There is no fracture or dislocation. Mineralization and joint spaces are normal. There are no calcifications or foreign bodies. A bone island is incidentally identified in the head of the proximal phalange. Impression: Negative right great toe . Electronically Signed by Cholo Esparza MD 08/16/2019 12:55 P
--- NOTE | 2019-08-16 13:45 | REP ---
Right ankle four views: There is a soft tissue edema laterally. There is no fracture or dislocation. The mortise is symmetric. There is no count there are no calcifications or foreign bodies. There is a calcaneal plantar spur. Impression: Soft tissue edema laterally. No fracture. Calcaneal plantar spur. Electronically Signed by Cholo Esparza MD 08/16/2019 01:35 P
--- NOTE | 2019-08-16 13:45 | REP ---
Right knee five views : There is no fracture or dislocation. Mineralization and joint spaces are normal. There are no calcifications or foreign bodies. There is no effusion. Impression: Negative right knee . Electronically Signed by Cholo Esparza MD 08/16/2019 01:36 P
[2019-08-16 13:54] VITALS: BP 161/71
== END 2019-08-16 13:56 | disposition home or self-care (01) ==
LOC: M ED 10:27
DX: S93.401A Sprain of unspecified ligament of right ankle, initial encounter (principal); S63.502A Unspecified sprain of left wrist, initial encounter; S43.402A Unspecified sprain of left shoulder joint, initial encounter; S80.211A Abrasion, right knee, initial encounter; W01.10XA Fall on same level from slipping, tripping and stumbling with subsequent striking against unspecified object, initial encounter; Y92.099 Unspecified place in other non-institutional residence as the place of occurrence of the external cause; Y93.9 Activity, unspecified; Y99.9 Unspecified external cause status; M77.30 Calcaneal spur, unspecified foot; Z98.84 Bariatric surgery status; I10 Essential (primary) hypertension; G47.30 Sleep apnea, unspecified; K21.9 Gastro-esophageal reflux disease without esophagitis; E11.9 Type 2 diabetes mellitus without complications; M54.9 Dorsalgia, unspecified; Z79.899 Other long term (current) drug therapy; Z91.040 Latex allergy status; Z91.041 Radiographic dye allergy status; Z91.013 Allergy to seafood; Z88.8 Allergy status to other drugs, medicaments and biological substances; Z88.5 Allergy status to narcotic agent

== ENCOUNTER → 2019-10-12 | Outpatient (CLI) | payer MEDICARE, MEDICAID ==
[~2019-10-12] MED LIST changes: +ESCI5SOL3 PO; +FAMO40TA3; +OMEP-218; +PREG300C; +TIZA4TAB4
--- NOTE | 2019-10-28 23:38 | ECWPNPC ---
PATIENT NAME: DAYTON YOUSIF : 1960 GENDER: FEMALE VISIT DATE: 10/12/2019 DISCHARGE DATE: 10/12/19 1214 VISIT LOCKED DATE TIME: PHYSICIAN: ANDRIY DEVLIN MD RESOURCE: ANDRIY DEVLIN MD REASON FOR APPOINTMENT 1. SACRAL AND LUMBAR PAIN HISTORY OF PRESENT ILLNESS PAIN SCREENING: PATIENT HAS A COMPLAINT OF ACUTE OR CHRONIC PAIN :YES 59 YEAR OLD FEMALE PATIENT WITH A HISTORY OF CHRONIC LOW BACK PAIN. THE PATIENT DESCRIBES THE PAIN ACHING, IT COMES AND GOES, SHARP, STABBING, TENDER, THROBBING, SORE WITH A PAIN SCORE OF 6-9/10 DEPENDING ON PHYSICAL ACTIVITY. THE PATIENT STATES HER PAIN BEGINS IN HER LOW BACK AND RADIATES DOWN BOTH HIPS. THE PATIENT SAYS SHE HAS BEEN SUFFERING FROM HER PAIN FOR MANY YEARS AND THE PAIN IS AFFECTING HER ABILITY TO PERFORM HER DAILY ACTIVITIES SUCH MOVING AROUND, CLEANING HER HOUSE, AND GROCERY SHOPPING. PATIENT DENIES UNEXPLAINABLE WEIGHT LOSS, FEVER, CHILLS, NEW CHANGES ON HER URINARY OR BOWEL CONTROL. FALL RISK SCREENING: SCREENING :NO FALLS REPORTED IN THE LAST YEAR CURRENT MEDICATIONS TAKING METHOTREXATE 2.5 MG TABLET 7 TABS ORALLY WEEKLY TAKING LANCETS - MISCELLANEOUS DIRECTED TOPICALLY DAILY TAKING OMEPRAZOLE 20 MG CAPSULE DELAYED RELEASE 1 CAPSULE ORALLY EVERY OTHER DAY TAKING [place] POTASSIUM 25 MG TABLET 1 TABLET ORALLY ONCE A DAY TAKING FOLIC ACID 1 MG TABLET 1 TABLET ORALLY ONCE A DAY TAKING VITAMIN B-12 5000 MCG LOZENGE ORALLY TAKING MULTIVITAMIN ADULT - TABLET ORALLY TAKING LYRICA 300 MG CAPSULE 1 CAPSULE ORALLY TWICE A DAY TAKING ESCITALOPRAM OXALATE 10 MG TABLET 1 TABLET ORALLY ONCE A DAY TAKING FLUTICASONE PROPIONATE 50 MCG/ACT SUSPENSION 1 SPRAY IN EACH NOSTRIL NASALLY ONCE A DAY TAKING CETIRIZINE HCL 10 MG TABLET 1 TABLET ORALLY ONCE A DAY TAKING POTASSIUM 99 MG TABLET 1 TABLET ORALLY ONCE A DAY MEDICATION LIST REVIEWED AND RECONCILED WITH THE PATIENT PAST MEDICAL HISTORY ARTHRITIS DIABETES: DIET CONTROLLED SINCE GASTRIC BYPASS GERD: RESOLVED AFTER GASTRIC BYPASS HYPERLIPIDEMIA HYPERTENSION 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 NIELSEN 12/2016 COLONOSCOPY 05/2011 COLONOSCOPY: ALANNAH PRADO 05/2017 ARTHROSCOPY SHOULDER WITH MANIPULATION- DR CORTES 04/2018 FAMILY HISTORY FATHER: 76 YRS, PULMONARY EMBOLISM, ABDOMINAL ANEURYSMS, DIAGNOSED WITH HYPERTENSION MOTHER: 79 YRS, CKD STAGE 4, UNSPECIFIED CEREBRAL ARTERY OCCLUSION WITH CEREBRAL INFARCTION 2 BROTHER(S) , 3 SISTER(S) - HEALTHY. 1 SON(S) - HEALTHY. DENIES FAMILY HX OF MELANOMA OR PANCREATIC CANCER. SOCIAL HISTORY GENERAL: TOBACCO USE ARE YOU A:FORMER SMOKER HOW LONG HAS IT BEEN SINCE YOU LAST SMOKED?5-10 YEARS LATEX QUESTIONNAIRE LATEX ALLERGY : HAVE YOU EVER DEVELOPED ANY TYPE OF REACTION AFTER HANDLING LATEX PRODUCTS SUCH RUBBER GLOVES, CONDOMS, DIAPHRAGMS, BALLOONS, SOCKS, OR UNDERWEAR?YES - PLEASE INDICATE :RUBBER GLOVES LATEX ALLERGY : HAVE YOU EVER DEVELOPED ANY TYPE OF REACTION DURING OR AFTER DENTAL APPOINTMENT, VAGINAL/RECTAL EXAMINATION, SURGICAL PROCEDURE, OR ANY OTHER EXPOSURE?NO LATEX RISK : HAVE YOU EVER HAD ANY DIFFICULTY BREATHING OR HIVES AFTER EATING OR HANDLING ANY FRUITS, OR VEGETABLES; SUCH KIWI, BANANAS, STONE FRUITS, OR CHESTNUTSNO LATEX RISK : DO YOU HAVE A PREVIOUS PERSONAL HISTORY OF MORE THAN NINE SURGERIES, SPINA BIFIDA, OR REPEATED CATHERIZATIONS? NO LATEX RISK : ARE YOU FREQUENTLY EXPOSED TO LATEX PRODUCTS IN YOUR OCCUPATION?NO DATE ASKED : 10/12/2019 BMI CARE GOAL FOLLOW-UP ABOVE NORMAL BMI FOLLOW-UPDIETARY MANAGEMENT EDUCATION, GUIDANCE, AND COUNSELING ALCOHOL SCREENING POINTS: 0, INTERPRETATION: NEGATIVE. RECREATIONAL DRUG USE DENIES. CAFFEINE NONE. SEXUAL HX HAD SEX IN THE LAST 12 MONTHS (VAGINAL, ORAL, OR ANAL)?: YES, WITH: MEN ONLY, HAVE YOU EVER HAD AN STD?: NO. HIV / HEP-C SCREENING HIV TEST OFFERED TO PATIENT:YES DATE OFFERED:06/25/2019 TEST ACCEPTED:NO HEP-C TEST OFFERED TO PATIENT:YES DATE OFFERED:06/25/2019 REASON:PATIENT DECLINED TEST ACCEPTED:NO REASON:PATIENT DECLINED BROCHURE PROVIDED TO PATIENTNO GNOSTICIST NO ROMAN CATHOLIC BELIEFS THAT WOULD IMPACT HEALTH CARE. LANGUAGE ROMANSH. LEARNING BARRIERS / SPECIAL NEEDS CHANGE FROM LAST VISIT?NO BARRIERS TO LEARNING?NO HEARING IMPAIRED?NO VISION IMPAIRED?NO COGNITIVELY IMPAIRED?NO READINESS TO LEARN?YES LEARNING PREFERENCES?NO LEARNING CAPABILITIES PRESENT?YES EMOTIONAL BARRIERS?NO SPECIAL DEVICES?NO UNIT CONTROL WORKER NEEDED?NO DOMESTIC VIOLENCE STATUS: DO YOU FEEL SAFE IN YOUR ENVIRONMENT?YES OCCUPATION: DISABLED [employer]. DIET: REGULAR. EXERCISE: NO REGULAR EXERCISE. MARITAL STATUS: . OTHERS AT HOME: SPOUSE. NEW PATIENT PAIN DIARY TODAY'S VISIT 10/12/2019 PATIENT DESCRIBES PAIN :ACHING, IT COMES AND GOES, SHARP, STABBING, TENDER, THROBBING, SORE FROM 0-10, WHAT LEVEL IS YOUR PAIN TODAY?6 PRECIPITATING FACTORS SITTING, PROLONGED ALLEVIATING FACTORS NOTHING IMPACT ON FUNCTION PT STATES THAT SHE HAS TROUBLE WALKING IS THERE A CHANCE YOU COULD BE ?NO HAVE YOU BEEN SICK IN THE LAST WEEK (COLD, COUGH, FEVER, FLU, ETC)NO DO YOU TAKE ANY BLOOD THINNERS?NO DO YOU HAVE ANY RASHES OR OPEN SORES?NO ANY CHANGE IN BOWEL OR BLADDER CONTROL?YES PT STATES THAT SHE HAS HAD AN ISSUE WITH BEING ABLE TO URINATE, DIFFIUCLTY STARTING TO URINTATE SINCE SHE STARTED HAVING PROBLEMS WITHER HER BACK. ARE YOU ALLERGIC TO SHELLFISH OR IV DYE?YES ARE YOU DIABETIC?NO DO YOU HAVE A PACEMAKER OR DEFIBRILLATOR?NO METAL PLATE IN BACK AND SURGICAL CLIPS IN PELVIS ANY NEW PROBLEMS WITH MEDICINES OR NEW ALLERGIESNO ANY NEW PATTERNS OF PAIN OR NUMBNESS?YES PAIN STARTED AND NOW HAS PROGRESSED TO RIGHT HIP ANY CHANGE IN YOUR MEDICAL CONDITION?NO HAVE YOU FALLEN IN THE LAST 6 MONTHS?YES PT STATES THAT SHE WAS HOME, FELL OUTSIDE, PT REPORTED TO ER FOR INJURIES. DS DO YOU USE ANY TYPE OF TOBACCO (SMOKE, SMOKELESS, CHEW, ETC.)NO ARE YOU ABUSED, NEGLECTED, OR IN AN UNSAFE ENVIRONMENT?NO DO YOU HAVE THOUGHTS OF HURTING YOURSELF OR SOMEONE ELSE?NO DO YOU NEED ANY PRESCRIPTIONS?NO DO YOU HAVE ANY OTHER QUESTIONS OR CONCERNS?NO INTENSITY SCALE REVIEWEDNUMBER PAIN CLINIC PFS, CLERGY, PUBLIC HEALTH REFERRALS WAS THE PROVIDER NOTIFIED OF ANY PERTINENT INFO?YES HAS THE PATIENT BEEN EDUCATED REGARDING HIS/HER PLAN OF CARE?YES HAS THE PATIENT BEEN EDUCATED REGARDING PAIN, THE RISK FOR PAIN, THE IMPORTANCE OF EFFECTIVE PAIN MANAGEMENT, AND THE PAIN ASSESSMENT PROCESS?YES HOUSING: RENTS APARTMENT. ADVANCE DIRECTIVE ADVANCE DIRECTIVE DISCUSSED WITH PATIENT:YES PT STATES THAT SHE DOES NOT HAVE HCP AT THIS TIME, DECLINES INFORMATION OR ASSISTANCE WITH PAPERWORK QUIT 2007. HOSPITALIZATION/MAJOR DIAGNOSTIC PROCEDURE SURGERY RELATED EYE PAIN @ [facility]. 01/05/2019 REVIEW OF SYSTEMS REVIEWED BY: PROVIDER: ANDRIY DEVLIN MD . CONSTITUTIONAL: ANY CHANGE IN YOUR MEDICAL CONDITION? NO . CHILLS NO . FEVER NO . INFECTION: DO YOU HAVE NEW INFECTIONS? NO . DO YOU HAVE HISTORY OF MRSA? NO . MUSCULOSKELETAL: ANY NEW PATTERNS OF PAIN OR NUMBNESS? NO . SYTEMIC LUPUS NO . GASTROENTEROLOGY: ANY NEW CHANGE IN BOWEL CONTROL? NO . BARRETTS ESOPHAGUS NO . CIRRHOSIS NO . HEPATITIS NO . LIVER FAILURE NO . ACID REFLUX NO . UNEXPLAINED WEIGHT LOSS NO . GENITOURINARY: ANY NEW CHANGE IN BLADDER CONTROL? YES, PT STATES THAT SHE HAS ISSUES WITH STARTING TO URINATE, HAS BEEN AN ISSUE SINCE HER BACK INJURY . IS THERE A CHANCE YOU COULD BE ? NO . HEMATOLOGY/LYMPH: DO YOU TAKE ANY BLOOD THINNERS? (FOR EXAMPLE- COUMADIN, PLAVIX, AGGRENOX, PLATEL, PRADAXA, OR XARELTO) NO . WHEN WAS YOUR LAST DOSE? DATE: TIME: . LOW PLATELET COUNT NO . SICKLE CELL DISEASE NO . VON WILLIEBRANDS NO . FACTOR V LEIDEN NO . THALLASEMIA NO . ANEMIA NO . EASY BRUISING NO . NEUROLOGY: HAVE YOU FALLEN IN THE PAST 12 MONTHS? YES, PT STATES THAT SHE FELL WHILE OUTSIDE AT HOME, REPORTED TO ED FOR EVALUATION. . ANY NEW EXTREMITY NUMBNESS OR WEAKNESS? NO . HEAD INJURY NO . DEMENTIA NO . CEREBRAL PALSY NO . MULTIPLE SCLEROSIS NO . DIZZINESS NO . HEADACHE NO . STROKES NO . VERTIGO NO . CARDIOLOGY: DO YOU HAVE A PACEMAKER OR DEFIBRILLATOR? NO . ANGINA NO . HEART ATTACK NO . HEART SURGERY NO . CONGESTIVE HEART FAILURE/FLUID OVERLOAD NO . CHEST PAIN NO . HIGH BLOOD PRESSURE NO . IRREGULAR HEART BEAT NO . RESPIRATORY: HAVE YOU BEEN SICK IN THE PAST WEEK? NO . FEVER NO . FLU LIKE SYMPTOMS? NO . CPAP NO . BYPAP NO . ASTHMA NO . EMPHYSEMA NO . CHRONIC LUNG DISEASES NO . SHORTNESS OF BREATH ON EXERTION NO . COUGH NO . SNORING NO . INTEGUMENTARY: DO YOU HAVE ANY RASHES OR OPEN SORES? NO . ALLERGIC/IMMUNO: ARE YOU ALLERGIC TO IV DYE? NO . ANY NEW ALLERGIES? NO . PSYCHIATRIC: DO YOU HAVE THOUGHTS OF HURTING YOURSELF OR SOMEONE ELSE? NO . ARE YOU ABUSED, NEGLECTED, OR IN AN UNSAFE ENVIRONMENT? NO . ENDOCRINOLOGY: ARE YOU DIABETIC? NO . THYROID DISORDER NO . OTHER: DO YOU NEED ANY PRESCRIPTIONS? NO . IF YES, PLEASE LIST: ____ . ANY NEW PROBLEMS WITH YOUR MEDICATIONS? NO . WHEN DID YOU LAST EAT? ____ . WHEN DID YOU LAST DRINK? ____ . WHAT DID YOU LAST DRINK? ____ . NAME OF PERSON DRIVING YOU HOME? ____ . DO YOU HAVE ANY OTHER QUESTIONS OR CONCERNS NO . VITAL SIGNS WT 233 LBS, HT 5'6", BMI 37.60 INDEX, BP 136/63 MM HG, HR 61 /MIN, RR 16 /MIN, TEMP 97.2 F, OXYGEN SAT % 97%, SAFE IN ENV? (Y/N) Y, NA INITIALS AW 1029, REVIEWED BY: RACHEL. EXAMINATION GENERAL EXAMINATION: LUNGS CLEAR, TO AUSCULTATION. HEART: NO MURMURS OR GALLOPS; FACIAL CRANIAL NERVES ARE GROSSLY NORMAL. GOOD SYMMETRY OF FACIAL MUSCLE MOVEMENT. NORMAL VISUAL STARK. TENDERNESS OVER THE PARASPINAL MUSCLE GROUP OF THE LOW BACK. TENDERNESS IN THE LOW BACK OVER THE BILATERAL SACROILIAC JOINT. FABERE TEST IS POSITIVE FOR BILATERAL SACROILIAC JOINT DYSFUNCTION. X-RAY OF THE LOW BACK DONE ON 06/13/2018 SHOWS DEGENERATIVE CHANGES. ASSESSMENTS SPONDYLOSIS WITHOUT MYELOPATHY OR RADICULOPATHY, LUMBAR REGION - M47.816 (PRIMARY) OTHER CHRONIC PAIN - G89.29 LOW BACK PAIN - M54.5 PELVIC PAIN - R10.2 TREATMENT SPONDYLOSIS WITHOUT MYELOPATHY OR RADICULOPATHY, LUMBAR REGION CLINICAL NOTES: WE DISCUSSED SEVERAL ISSUES WITH MS. YOUSIF'S PAIN MANAGEMENT CASE. I WOULD LIKE TO ORDER LUMBAR AND PELVIC MRI'S WITH SPECIAL ATTENTION TO BILATERAL SACROILIAC JOINTS DUE TO SYMPTOMS OF SACROLITIS. DEPENDING ON THE MRI RESULTS, I MAY CONSIDER A BILATERAL SACROILIAC JOINT BLOCK AND A LUMBAR FACET BLOCK IN THE FUTURE. THE PATIENT WILL HAVE A TELEPHONE FOLLOW UP ON OCTOBER 25 AT 9:30 A.M. TO DISCUSS MRI RESULTS AND OPTIONS TO PROCEDURE WITH. , INSTRUCTIONS WERE GIVEN, QUESTIONS WERE ANSWERED, PATIENT REPORTS UNDERSTANDING AND AGREES WITH THE PLAN. I, MARISOL DE JESUS, DOCUMENTED THE ABOVE INFORMATION ACTING A SCRIBE FOR DR. DEVLIN. I HAVE REVIEWED THE ABOVE DOCUMENT, WRITTEN BY MARISOL RAYMUNDO AND I VERIFY THAT IT IS ACCURATE. DEAR MALLORY GARCIA, DO: THANK YOU FOR YOUR KIND REFERRAL OF DAYTON YOUSIF. IF YOU WANT TO DISCUSS HER CASE WITH ME PLEASE CALL ME AT THE PAIN CENTER AT [phone]. SINCERELY, ANDRIY DEVLIN MD PAIN MEDICINE . LOW BACK PAIN [facility] MRI LUMBAR W/O CONTRAST (CPT 66868)[id number] PELVIC PAIN [facility] MRI PELVIS WITHOUT [id number] PROCEDURE CODES FA211 ESTABILISHED PATIENT [facility] FACILITY CHARGE G8427 CURRENT MEDS W/DOSAGES DOCUMENTED G8730 PAIN ASSESS POS TOOL F/U PLAN DOC DISPOSITION & COMMUNICATION FOLLOW UP 3 WEEKS (REASON: ORDERING LS/PELVIC MRI; F/UP WITH DR Moreau ON 10/25 @9:30 ) ELECTRONICALLY SIGNED BY ANDRIY DEVLIN MD, ON 10/28/2019 AT 12:22 PM EDT DISCLAIMER : THIS IS A VISIT SUMMARY EXTRACTED FROM THE [facility] CHART. IT IS NOT A COPY OF THE [facility] PROGRESS NOTE. MTDD
== END ==
LOC: M PAIN 11:00
PROVIDERS: ATTEND Anesthesiology
DX: M47.816 Spondylosis without myelopathy or radiculopathy, lumbar region (principal); G89.29 Other chronic pain; M54.5 Low back pain; R10.2 Pelvic and perineal pain; Z79.899 Other long term (current) drug therapy; Z87.891 Personal history of nicotine dependence; Z88.5 Allergy status to narcotic agent; Z91.040 Latex allergy status; Z91.041 Radiographic dye allergy status; Z91.048 Other nonmedicinal substance allergy status

== ENCOUNTER → 2019-11-01 | Outpatient (CLI) | payer MEDICARE, MEDICAID ==
--- NOTE | 2019-11-01 11:24 | REP ---
MRI SACRUM AND COCCYX: Multiple sequences obtained in the sagittal, axial, and coronal planes. The visualized osseous structures demonstrate normal bone marrow signal. There is no occult fracture. There is no evidence of sacroiliitis. No soft tissue mass or adenopathy is seen. There is no mass along the lumbosacral plexus bilaterally. The patient has had a hysterectomy. IMPRESSION: No significant abnormality detected. Electronically Signed by Cholo Benz MD 11/01/2019 12:54 P
--- NOTE | 2019-11-01 11:33 | REP ---
REASON FOR EXAM: Low back pain and pelvis pain. COMPARISON: 10/07/2012 The examination is limited by motion artifact. The prior examination showed diffuse annular bulges at L2-3 and L3-4 with minimal thecal sac compression along with mild central canal stenosis at L4-5 secondary to a combination of annular bulge, facet joint hypertrophy and thickening of the ligamentum flava. Vertebral body height and alignment is unchanged and again seen to be within normal limits. There is loss of disc space height posteriorly and disc hydrational signal throughout at every level status quo. The marrow signal is unchanged and again seen to be within normal limits throughout with the exception of mild Mobic type 1 endplate changes seen superior endplate of L2 anteriorly. At the L1-2 level, a mild broad-based annular bulge has developed. This causes minimal compression of the anterior thecal sac. There is no disc extrusion, foraminal narrowing, or mati central canal stenosis. At the L2-3 level, there is a moderate broad-based annular bulge, which compresses the anterior thecal sac. This has increased from the prior exam. There is mild central canal stenosis at this level. No disc extrusion or foraminal narrowing has developed. At the L3-4 level, there is a broad-based annular bulge which has increased from the prior exam and compresses the anterior thecal sac. This is seen in conjunction with degenerative facet joint changes bilaterally with thickening of the ligamentum flava. The factors in concert causing mild central canal stenosis also developed since the last exam. There is no disc extrusion or foraminal narrowing. At the L4-5 level, there is a broad-based annular bulge seen in conjunction with hypertrophic degenerative facet joint changes bilaterally and thickening of the ligamentum flava. The factors in concert are causing moderate central canal stenosis which has increased from the prior exam. No disc extrusion or mati foraminal narrowing has developed. At the L5-S1 level, there is a broad-based annular bulge seen in conjunction with degenerative facet joint changes and thickening of the ligamentum flava. These findings have increased from the prior exam and there is now slight central canal stenosis due to the degenerative facet joint changes. The anterior surface of the thecal sac is not compressed by the bulging annulus. There is no foraminal narrowing or acute disc extrusion. IMPRESSION: Multiple level discogenic changes and other related findings as described above. Electronically Signed by Guzman Tanner DO 11/01/2019 12:08 P
== END ==
LOC: M RAD 08:36
PROVIDERS: ATTEND Anesthesiology
DX: M51.26 Other intervertebral disc displacement, lumbar region (principal); R10.2 Pelvic and perineal pain; M51.27 Other intervertebral disc displacement, lumbosacral region

== ENCOUNTER → 2019-11-06 | Outpatient (CLI) | payer MEDICARE, MEDICAID ==
--- NOTE | 2019-11-13 02:13 | ECWPNPC ---
PATIENT NAME: DATYON YOUSIF : 1960 GENDER: FEMALE VISIT DATE: 11/06/2019 DISCHARGE DATE: 11/06/19 1622 VISIT LOCKED DATE TIME: PHYSICIAN: ANDRIY DEVLIN MD RESOURCE: ANDRIY DEVLIN MD REASON FOR APPOINTMENT 1. REVIEW MRI [phone] HISTORY OF PRESENT ILLNESS HISTORY OF PRESENT ILLNESS: PAIN THE PATIENT DESCRIBES THE PAIN... PERMISSION FROM PATIENT WAS RECEIVED TO DO TELEMEDICINE VISIT USING ZOOM APPLICATION. 59 YEAR OLD FEMALE PATIENT WITH A HISTORY OF CHRONIC LOW BACK PAIN. THE PATIENT DESCRIBES HER PAIN ACHING, IT COMES AND GOES, SHARP, STABBING, TENDER, THROBBING, SORE WITH A PAIN SCORE OF 6-8/10 DEPENDING ON PHYSICAL ACTIVITY. THE PATIENT STATES SHE IS IN A LOT OF PAIN AND IS HAVING DIFFICULTY SLEEPING DUE TO HER PAIN. THE PATIENT SAYS HER PAIN IS AFFECTING HER ABILITY TO PERFORM HER DAILY ACTIVITIES SUCH COOKING, CLEANING HER HOUSE, AND ENJOYING DAILY LIVING. THE PATIENT DENIES UNEXPLAINED WEIGHT LOSS, FEVER, CHILLS, NEW CHANGES IN HER URINARY OR BOWEL CONTROL. FALL RISK SCREENING: SCREENING :NO FALLS REPORTED IN THE LAST YEAR CURRENT MEDICATIONS TAKING METHOTREXATE 2.5 MG TABLET 7 TABS ORALLY WEEKLY TAKING LANCETS - MISCELLANEOUS DIRECTED TOPICALLY DAILY TAKING OMEPRAZOLE 20 MG CAPSULE DELAYED RELEASE 1 CAPSULE ORALLY EVERY OTHER DAY TAKING LOSARTAN POTASSIUM 25 MG TABLET 1 TABLET ORALLY ONCE A DAY TAKING FOLIC ACID 1 MG TABLET 1 TABLET ORALLY ONCE A DAY TAKING VITAMIN B-12 5000 MCG LOZENGE ORALLY TAKING MULTIVITAMIN ADULT - TABLET ORALLY TAKING LYRICA 300 MG CAPSULE 1 CAPSULE ORALLY TWICE A DAY TAKING ESCITALOPRAM OXALATE 10 MG TABLET 1 TABLET ORALLY ONCE A DAY TAKING FLUTICASONE PROPIONATE 50 MCG/ACT SUSPENSION 1 SPRAY IN EACH NOSTRIL NASALLY ONCE A DAY TAKING CETIRIZINE HCL 10 MG TABLET 1 TABLET ORALLY ONCE A DAY TAKING POTASSIUM 99 MG TABLET 1 TABLET ORALLY ONCE A DAY MEDICATION LIST REVIEWED AND RECONCILED WITH THE PATIENT PAST MEDICAL HISTORY ARTHRITIS DIABETES: DIET CONTROLLED SINCE GASTRIC BYPASS GERD: RESOLVED AFTER GASTRIC BYPASS HYPERLIPIDEMIA HYPERTENSION 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 NIELSEN 12/2016 COLONOSCOPY 05/2011 COLONOSCOPY: ALANNAH PRADO 05/2017 ARTHROSCOPY SHOULDER WITH MANIPULATION- DR CORTES 04/2018 FAMILY HISTORY FATHER: 76 YRS, PULMONARY EMBOLISM, ABDOMINAL ANEURYSMS, DIAGNOSED WITH HYPERTENSION MOTHER: 79 YRS, CKD STAGE 4, UNSPECIFIED CEREBRAL ARTERY OCCLUSION WITH CEREBRAL INFARCTION 2 BROTHER(S) , 3 SISTER(S) - HEALTHY. 1 SON(S) - HEALTHY. DENIES FAMILY HX OF MELANOMA OR PANCREATIC CANCER. SOCIAL HISTORY GENERAL: TOBACCO USE ARE YOU A:FORMER SMOKER HOW LONG HAS IT BEEN SINCE YOU LAST SMOKED?5-10 YEARS LATEX QUESTIONNAIRE LATEX ALLERGY : HAVE YOU EVER DEVELOPED ANY TYPE OF REACTION AFTER HANDLING LATEX PRODUCTS SUCH RUBBER GLOVES, CONDOMS, DIAPHRAGMS, BALLOONS, SOCKS, OR UNDERWEAR?YES LATEX ALLERGY : HAVE YOU EVER DEVELOPED ANY TYPE OF REACTION DURING OR AFTER DENTAL APPOINTMENT, VAGINAL/RECTAL EXAMINATION, SURGICAL PROCEDURE, OR ANY OTHER EXPOSURE?NO - PLEASE INDICATE :RUBBER GLOVES DATE ASKED : 10/12/2019 LATEX RISK : HAVE YOU EVER HAD ANY DIFFICULTY BREATHING OR HIVES AFTER EATING OR HANDLING ANY FRUITS, OR VEGETABLES; SUCH KIWI, BANANAS, STONE FRUITS, OR CHESTNUTSNO LATEX RISK : DO YOU HAVE A PREVIOUS PERSONAL HISTORY OF MORE THAN NINE SURGERIES, SPINA BIFIDA, OR REPEATED CATHERIZATIONS? NO LATEX RISK : ARE YOU FREQUENTLY EXPOSED TO LATEX PRODUCTS IN YOUR OCCUPATION?NO BMI CARE GOAL FOLLOW-UP ABOVE NORMAL BMI FOLLOW-UPDIETARY MANAGEMENT EDUCATION, GUIDANCE, AND COUNSELING ALCOHOL SCREENING POINTS: 0, INTERPRETATION: NEGATIVE. RECREATIONAL DRUG USE DENIES. CAFFEINE NONE. SEXUAL HX HAD SEX IN THE LAST 12 MONTHS (VAGINAL, ORAL, OR ANAL)?: YES, WITH: MEN ONLY, HAVE YOU EVER HAD AN STD?: NO. HIV / HEP-C SCREENING HIV TEST OFFERED TO PATIENT:YES DATE OFFERED:06/25/2019 TEST ACCEPTED:NO HEP-C TEST OFFERED TO PATIENT:YES DATE OFFERED:06/25/2019 REASON:PATIENT DECLINED TEST ACCEPTED:NO REASON:PATIENT DECLINED BROCHURE PROVIDED TO PATIENTNO JAIN NO SCIENTOLOGY BELIEFS THAT WOULD IMPACT HEALTH CARE. LANGUAGE TELUGU. LEARNING BARRIERS / SPECIAL NEEDS CHANGE FROM LAST VISIT?NO BARRIERS TO LEARNING?NO HEARING IMPAIRED?NO VISION IMPAIRED?NO COGNITIVELY IMPAIRED?NO READINESS TO LEARN?YES LEARNING PREFERENCES?NO LEARNING CAPABILITIES PRESENT?YES EMOTIONAL BARRIERS?NO SPECIAL DEVICES?NO ASSISTED LIVING HOUSEKEEPER NEEDED?NO DOMESTIC VIOLENCE STATUS: DO YOU FEEL SAFE IN YOUR ENVIRONMENT?YES OCCUPATION: DISABLED SSI. DIET: REGULAR. EXERCISE: NO REGULAR EXERCISE. MARITAL STATUS: . OTHERS AT HOME: SPOUSE. NEW PATIENT PAIN DIARY TODAY'S VISIT 11/06/2019 PATIENT DESCRIBES PAIN :ACHING, IT COMES AND GOES, SHARP, STABBING, TENDER, THROBBING, SORE FROM 0-10, WHAT LEVEL IS YOUR PAIN TODAY?8 PRECIPITATING FACTORS SITTING, PROLONGED ALLEVIATING FACTORS NOTHING IMPACT ON FUNCTION PT STATES THAT SHE HAS TROUBLE WALKING IS THERE A CHANCE YOU COULD BE ?NO HAVE YOU BEEN SICK IN THE LAST WEEK (COLD, COUGH, FEVER, FLU, ETC)NO DO YOU TAKE ANY BLOOD THINNERS?NO DO YOU HAVE ANY RASHES OR OPEN SORES?NO ANY CHANGE IN BOWEL OR BLADDER CONTROL?YES PT STATES THAT SHE HAS HAD AN ISSUE WITH BEING ABLE TO URINATE, DIFFIUCLTY STARTING TO URINTATE SINCE SHE STARTED HAVING PROBLEMS WITHER HER BACK. ARE YOU ALLERGIC TO SHELLFISH OR IV DYE?YES ARE YOU DIABETIC?NO DO YOU HAVE A PACEMAKER OR DEFIBRILLATOR?NO METAL PLATE IN BACK AND SURGICAL CLIPS IN PELVIS ANY NEW PROBLEMS WITH MEDICINES OR NEW ALLERGIESNO ANY NEW PATTERNS OF PAIN OR NUMBNESS?YES PAIN STARTED AND NOW HAS PROGRESSED TO RIGHT HIP ANY CHANGE IN YOUR MEDICAL CONDITION?NO HAVE YOU FALLEN IN THE LAST 6 MONTHS?YES PT STATES THAT SHE WAS HOME, FELL OUTSIDE, PT REPORTED TO ER FOR INJURIES. DS DO YOU USE ANY TYPE OF TOBACCO (SMOKE, SMOKELESS, CHEW, ETC.)NO ARE YOU ABUSED, NEGLECTED, OR IN AN UNSAFE ENVIRONMENT?NO DO YOU HAVE THOUGHTS OF HURTING YOURSELF OR SOMEONE ELSE?NO DO YOU NEED ANY PRESCRIPTIONS?NO DO YOU HAVE ANY OTHER QUESTIONS OR CONCERNS?NO INTENSITY SCALE REVIEWEDNUMBER PAIN CLINIC PFS, CLERGY, PUBLIC HEALTH REFERRALS WAS THE PROVIDER NOTIFIED OF ANY PERTINENT INFO?YES HAS THE PATIENT BEEN EDUCATED REGARDING HIS/HER PLAN OF CARE?YES HAS THE PATIENT BEEN EDUCATED REGARDING PAIN, THE RISK FOR PAIN, THE IMPORTANCE OF EFFECTIVE PAIN MANAGEMENT, AND THE PAIN ASSESSMENT PROCESS?YES HOUSING: RENTS APARTMENT. ADVANCE DIRECTIVE ADVANCE DIRECTIVE DISCUSSED WITH PATIENT:YES PT STATES THAT SHE DOES NOT HAVE HCP AT THIS TIME, DECLINES INFORMATION OR ASSISTANCE WITH PAPERWORK QUIT 2007. HOSPITALIZATION/MAJOR DIAGNOSTIC PROCEDURE SURGERY RELATED EYE PAIN @ [facility]. 01/05/2019 REVIEW OF SYSTEMS REVIEWED BY: PROVIDER: ANDRIY DEVLIN MD . CONSTITUTIONAL: ANY CHANGE IN YOUR MEDICAL CONDITION? NO . CHILLS NO . FEVER NO . INFECTION: DO YOU HAVE NEW INFECTIONS? NO . DO YOU HAVE HISTORY OF MRSA? NO . MUSCULOSKELETAL: ANY NEW PATTERNS OF PAIN OR NUMBNESS? NO . GASTROENTEROLOGY: ANY NEW CHANGE IN BOWEL CONTROL? NO . GENITOURINARY: ANY NEW CHANGE IN BLADDER CONTROL? NO . IS THERE A CHANCE YOU COULD BE ? NO . HEMATOLOGY/LYMPH: DO YOU TAKE ANY BLOOD THINNERS? (FOR EXAMPLE- COUMADIN, PLAVIX, AGGRENOX, PLATEL, PRADAXA, OR XARELTO) NO . WHEN WAS YOUR LAST DOSE? DATE: TIME: . NEUROLOGY: HAVE YOU FALLEN IN THE PAST 12 MONTHS? YES PRIOR TO LAST VISIT . ANY NEW EXTREMITY NUMBNESS OR WEAKNESS? NO . CARDIOLOGY: DO YOU HAVE A PACEMAKER OR DEFIBRILLATOR? NO . RESPIRATORY: HAVE YOU BEEN SICK IN THE PAST WEEK? NO . FEVER NO . FLU LIKE SYMPTOMS? NO . COUGH NO . INTEGUMENTARY: DO YOU HAVE ANY RASHES OR OPEN SORES? NO . ALLERGIC/IMMUNO: ARE YOU ALLERGIC TO IV DYE? YES . ANY NEW ALLERGIES? NO . PSYCHIATRIC: DO YOU HAVE THOUGHTS OF HURTING YOURSELF OR SOMEONE ELSE? NO . ARE YOU ABUSED, NEGLECTED, OR IN AN UNSAFE ENVIRONMENT? NO . ENDOCRINOLOGY: ARE YOU DIABETIC? NO . OTHER: DO YOU NEED ANY PRESCRIPTIONS? NO . IF YES, PLEASE LIST: ____ . ANY NEW PROBLEMS WITH YOUR MEDICATIONS? NO . WHEN DID YOU LAST EAT? ____ . WHEN DID YOU LAST DRINK? ____ . WHAT DID YOU LAST DRINK? ____ . NAME OF PERSON DRIVING YOU HOME? ____ . DO YOU HAVE ANY OTHER QUESTIONS OR CONCERNS NO . EXAMINATION GENERAL EXAMINATION: TELEMEDICINE USING Sisteer APPLICATION. PATIENT IS ALERT O X 3 AND COOPERATIVE. MRI OF THE LUMBAR SPINE DONE ON 11/01/2019 SHOWS FACET ARTHROPATHY CHANGES. ASSESSMENTS SPONDYLOSIS WITHOUT MYELOPATHY OR RADICULOPATHY, LUMBAR REGION - M47.816 (PRIMARY) TREATMENT SPONDYLOSIS WITHOUT MYELOPATHY OR RADICULOPATHY, LUMBAR REGION CLINICAL NOTES: WE DISCUSSED SEVERAL ISSUES WITH MS. YOUSIF'S PAIN MANAGEMENT CASE. I DISCUSSED WITH THE PATIENT IF SHE FEELS COMFORTABLE COMING IN FOR A FOLLOW UP IN PERSON AT OUR CLINIC. THE PATIENT SAYS SHE IS COMFORTABLE COMING IN TO BE SEEN, THEREFORE THE PATIENT WILL FOLLOW UP WITH ME NEXT WEEK TO EVALUATE HER PAIN LOCATION. I DISCUSSED WITH THE PATIENT ABOUT REPLACING KENALOG WITH DEXAMETHASONE, WHICH IS A LESS POTENT STEROID, TO LESSEN THE RISK OF IMMUNOSUPPRESSION. I WILL REQUEST FOR A CLEARANCE FROM THE PATIENT'S HAT FINISHER IN [place], DR. ROWLAND, TO STOP METHOTREXATE 2.5 MG BEFORE A PROCEDURE. INSTRUCTIONS WERE GIVEN, QUESTIONS WERE ANSWERED, PATIENT REPORTS UNDERSTANDING AND AGREES WITH THE PLAN. I, MARISOL DE JESUS, DOCUMENTED THE ABOVE INFORMATION ACTING A SCRIBE FOR DR. DEVLIN. I HAVE REVIEWED THE ABOVE DOCUMENT, WRITTEN BY MARISOL OCONNORIBVesna AND I VERIFY THAT IT IS ACCURATE. . DISPOSITION & COMMUNICATION FOLLOW UP 1 WEEK (REASON: F/UP W/ DR Moreau SOON POSSIBLE. THANK YOU :)) ELECTRONICALLY SIGNED BY ANDRIY DEVLIN MD, MD ON 11/12/2019 AT 12:58 PM EDT DISCLAIMER : THIS IS A VISIT SUMMARY EXTRACTED FROM THE [employer] CHART. IT IS NOT A COPY OF THE [employer] PROGRESS NOTE. MTDD
== END ==
LOC: M PAIN 14:30
PROVIDERS: ATTEND Anesthesiology
DX: M47.816 Spondylosis without myelopathy or radiculopathy, lumbar region (principal); E11.9 Type 2 diabetes mellitus without complications; I10 Essential (primary) hypertension; Z79.899 Other long term (current) drug therapy; Z87.891 Personal history of nicotine dependence; Z88.5 Allergy status to narcotic agent; Z88.8 Allergy status to other drugs, medicaments and biological substances; Z91.040 Latex allergy status; Z91.048 Other nonmedicinal substance allergy status

== ENCOUNTER → 2019-11-15 | Outpatient (CLI) | payer MEDICARE, MEDICAID ==
--- NOTE | 2019-11-24 02:48 | ECWPNPC ---
PATIENT NAME: DAYTON YOUSIF : 1960 GENDER: FEMALE VISIT DATE: 11/15/2019 DISCHARGE DATE: 11/15/19 1504 VISIT LOCKED DATE TIME: PHYSICIAN: ANDRIY DEVLIN MD RESOURCE: ANDRIY DEVLIN MD REASON FOR APPOINTMENT 1. BACK HISTORY OF PRESENT ILLNESS HISTORY OF PRESENT ILLNESS: PAIN THE PATIENT DESCRIBES THE PAIN... 59 YEAR OLD FEMALE PATIENT WITH A HISTORY OF CHRONIC LOW BACK AND BILATERAL LEG PAIN. THE PATIENT DESCRIBES HER PAIN BURNING AND INTERMITTENT WITH A PAIN SCORE OF 6-9/10 DEPENDING ON PHYSICAL ACTIVITY. THE PATIENT STATES HER PAIN BEGINS IN HER LOW BACK AND RADIATES DOWN BOTH BUTTOCKS AND LEGS, WITH NUMBNESS IN BOTH LEGS WELL. THE PATIENT SAYS SHE HAS BEEN SUFFERING THIS PAIN FOR A YEAR AND IS AFFECTING HER ABILITY TO PERFORM HER DAILY ACTIVITIES. THE PATIENT DENIES UNEXPLAINED WEIGHT LOSS, FEVER, CHILLS, NEW CHANGES IN HER URINARY OR BOWEL CONTROL. FALL RISK SCREENING: SCREENING :NO FALLS REPORTED IN THE LAST YEAR CURRENT MEDICATIONS TAKING METHOTREXATE 2.5 MG TABLET 7 TABS ORALLY WEEKLY TAKING LANCETS - MISCELLANEOUS DIRECTED TOPICALLY DAILY TAKING OMEPRAZOLE 20 MG CAPSULE DELAYED RELEASE 1 CAPSULE ORALLY EVERY OTHER DAY TAKING LOSARTAN POTASSIUM 25 MG TABLET 1 TABLET ORALLY ONCE A DAY TAKING FOLIC ACID 1 MG TABLET 1 TABLET ORALLY ONCE A DAY TAKING VITAMIN B-12 5000 MCG LOZENGE ORALLY TAKING MULTIVITAMIN ADULT - TABLET ORALLY TAKING LYRICA 300 MG CAPSULE 1 CAPSULE ORALLY TWICE A DAY TAKING ESCITALOPRAM OXALATE 10 MG TABLET 1 TABLET ORALLY ONCE A DAY TAKING FLUTICASONE PROPIONATE 50 MCG/ACT SUSPENSION 1 SPRAY IN EACH NOSTRIL NASALLY ONCE A DAY TAKING CETIRIZINE HCL 10 MG TABLET 1 TABLET ORALLY ONCE A DAY TAKING POTASSIUM 99 MG TABLET 1 TABLET ORALLY ONCE A DAY TAKING PROBIOTIC - CAPSULE DIRECTED ORALLY MEDICATION LIST REVIEWED AND RECONCILED WITH THE PATIENT PAST MEDICAL HISTORY ARTHRITIS DIABETES: DIET CONTROLLED SINCE GASTRIC BYPASS GERD: RESOLVED AFTER GASTRIC BYPASS HYPERLIPIDEMIA HYPERTENSION 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 NIELSEN 12/2016 COLONOSCOPY 05/2011 COLONOSCOPY: ALANNAH PRADO 05/2017 ARTHROSCOPY SHOULDER WITH MANIPULATION- DR CORTES 04/2018 FAMILY HISTORY FATHER: 76 YRS, PULMONARY EMBOLISM, ABDOMINAL ANEURYSMS, DIAGNOSED WITH HYPERTENSION MOTHER: 79 YRS, CKD STAGE 4, UNSPECIFIED CEREBRAL ARTERY OCCLUSION WITH CEREBRAL INFARCTION 2 BROTHER(S) , 3 SISTER(S) - HEALTHY. 1 SON(S) - HEALTHY. DENIES FAMILY HX OF MELANOMA OR PANCREATIC CANCER. SOCIAL HISTORY GENERAL: TOBACCO USE ARE YOU A:FORMER SMOKER HOW LONG HAS IT BEEN SINCE YOU LAST SMOKED?5-10 YEARS LATEX QUESTIONNAIRE LATEX ALLERGY : HAVE YOU EVER DEVELOPED ANY TYPE OF REACTION AFTER HANDLING LATEX PRODUCTS SUCH RUBBER GLOVES, CONDOMS, DIAPHRAGMS, BALLOONS, SOCKS, OR UNDERWEAR?YES - PLEASE INDICATE :RUBBER GLOVES LATEX ALLERGY : HAVE YOU EVER DEVELOPED ANY TYPE OF REACTION DURING OR AFTER DENTAL APPOINTMENT, VAGINAL/RECTAL EXAMINATION, SURGICAL PROCEDURE, OR ANY OTHER EXPOSURE?NO LATEX RISK : HAVE YOU EVER HAD ANY DIFFICULTY BREATHING OR HIVES AFTER EATING OR HANDLING ANY FRUITS, OR VEGETABLES; SUCH KIWI, BANANAS, STONE FRUITS, OR CHESTNUTSNO LATEX RISK : DO YOU HAVE A PREVIOUS PERSONAL HISTORY OF MORE THAN NINE SURGERIES, SPINA BIFIDA, OR REPEATED CATHERIZATIONS? NO LATEX RISK : ARE YOU FREQUENTLY EXPOSED TO LATEX PRODUCTS IN YOUR OCCUPATION?NO DATE ASKED : 10/12/2019 BMI CARE GOAL FOLLOW-UP ABOVE NORMAL BMI FOLLOW-UPDIETARY MANAGEMENT EDUCATION, GUIDANCE, AND COUNSELING ALCOHOL SCREENING POINTS: 0, INTERPRETATION: NEGATIVE. RECREATIONAL DRUG USE DENIES. CAFFEINE NONE. SEXUAL HX HAD SEX IN THE LAST 12 MONTHS (VAGINAL, ORAL, OR ANAL)?: YES, WITH: MEN ONLY, HAVE YOU EVER HAD AN STD?: NO. HIV / HEP-C SCREENING HIV TEST OFFERED TO PATIENT:YES DATE OFFERED:06/25/2019 TEST ACCEPTED:NO HEP-C TEST OFFERED TO PATIENT:YES DATE OFFERED:06/25/2019 REASON:PATIENT DECLINED TEST ACCEPTED:NO REASON:PATIENT DECLINED BROCHURE PROVIDED TO PATIENTNO UATSDIN NO BUDDHISM BELIEFS THAT WOULD IMPACT HEALTH CARE. LANGUAGE LITHUANIAN. LEARNING BARRIERS / SPECIAL NEEDS CHANGE FROM LAST VISIT?NO 11/15/2019 BARRIERS TO LEARNING?NO HEARING IMPAIRED?NO VISION IMPAIRED?NO WEARS GLASSES COGNITIVELY IMPAIRED?NO READINESS TO LEARN?YES LEARNING PREFERENCES?NO LEARNING CAPABILITIES PRESENT?YES EMOTIONAL BARRIERS?NO SPECIAL DEVICES?NO QUALITY MANAGER NEEDED?NO DOMESTIC VIOLENCE STATUS: DO YOU FEEL SAFE IN YOUR ENVIRONMENT?YES OCCUPATION: DISABLED SSI. DIET: REGULAR. EXERCISE: NO REGULAR EXERCISE. MARITAL STATUS: . OTHERS AT HOME: SPOUSE. NEW PATIENT PAIN DIARY TODAY'S VISIT 11/15/2019 PATIENT DESCRIBES PAIN :BURNING, IT COMES AND GOES FROM 0-10, WHAT LEVEL IS YOUR PAIN TODAY?5 PRECIPITATING FACTORS PROLONGED SITTING ,WALKING ALLEVIATING FACTORS NOTHING REALLY HELPS, HAS A CUSHION FOR THE CAR WHICH HELPS A LITTLE PAIN CLINIC PFS, CLERGY, PUBLIC HEALTH REFERRALS WAS THE PROVIDER NOTIFIED OF ANY PERTINENT INFO?YES HAS THE PATIENT BEEN EDUCATED REGARDING HIS/HER PLAN OF CARE?YES HAS THE PATIENT BEEN EDUCATED REGARDING PAIN, THE RISK FOR PAIN, THE IMPORTANCE OF EFFECTIVE PAIN MANAGEMENT, AND THE PAIN ASSESSMENT PROCESS?YES HOUSING: RENTS APARTMENT. ADVANCE DIRECTIVE ADVANCE DIRECTIVE DISCUSSED WITH PATIENT:YES PT STATES THAT SHE DOES NOT HAVE HCP AT THIS TIME, DECLINES INFORMATION OR ASSISTANCE WITH PAPERWORK QUIT 2007. HOSPITALIZATION/MAJOR DIAGNOSTIC PROCEDURE SURGERY RELATED EYE PAIN @ [facility]. 01/05/2019 REVIEW OF SYSTEMS REVIEWED BY: PROVIDER: ANDRIY DEVLIN MD . CONSTITUTIONAL: ANY CHANGE IN YOUR MEDICAL CONDITION? NO . CHILLS NO . FEVER NO . INFECTION: DO YOU HAVE NEW INFECTIONS? NO . DO YOU HAVE HISTORY OF MRSA? NO . MUSCULOSKELETAL: ANY NEW PATTERNS OF PAIN OR NUMBNESS? NO . GASTROENTEROLOGY: ANY NEW CHANGE IN BOWEL CONTROL? NO . GENITOURINARY: ANY NEW CHANGE IN BLADDER CONTROL? NO . IS THERE A CHANCE YOU COULD BE ? NO . HEMATOLOGY/LYMPH: DO YOU TAKE ANY BLOOD THINNERS? (FOR EXAMPLE- COUMADIN, PLAVIX, AGGRENOX, PLATEL, PRADAXA, OR XARELTO) NO . WHEN WAS YOUR LAST DOSE? DATE: TIME: . NEUROLOGY: HAVE YOU FALLEN IN THE PAST 12 MONTHS? YES PT REPORTS SHE FELL 2/6, SLIPPED ON ICE. SHE WENT TO ED, PER PT XRAYS SHOWED SHE BROKE HER LEFT WRIST, LEFT ELBOW, AND HURT HER RIGHT KNEE. . ANY NEW EXTREMITY NUMBNESS OR WEAKNESS? NO . CARDIOLOGY: DO YOU HAVE A PACEMAKER OR DEFIBRILLATOR? NO . RESPIRATORY: HAVE YOU BEEN SICK IN THE PAST WEEK? NO . FEVER NO . FLU LIKE SYMPTOMS? NO . COUGH NO . INTEGUMENTARY: DO YOU HAVE ANY RASHES OR OPEN SORES? NO . ALLERGIC/IMMUNO: ARE YOU ALLERGIC TO IV DYE? YES . ANY NEW ALLERGIES? NO . PSYCHIATRIC: DO YOU HAVE THOUGHTS OF HURTING YOURSELF OR SOMEONE ELSE? NO . ARE YOU ABUSED, NEGLECTED, OR IN AN UNSAFE ENVIRONMENT? NO . ENDOCRINOLOGY: ARE YOU DIABETIC? NO . OTHER: DO YOU NEED ANY PRESCRIPTIONS? NO . IF YES, PLEASE LIST: ____ . ANY NEW PROBLEMS WITH YOUR MEDICATIONS? NO . WHEN DID YOU LAST EAT? ____ . WHEN DID YOU LAST DRINK? ____ . WHAT DID YOU LAST DRINK? ____ . NAME OF PERSON DRIVING YOU HOME? ____ . DO YOU HAVE ANY OTHER QUESTIONS OR CONCERNS NO . VITAL SIGNS WT 242.6 LBS, HT 5'6", BMI 39.15 INDEX, BP 133/72 MM HG, HR 60 /MIN, RR 16 /MIN, TEMP 96.6 F, OXYGEN SAT % 98%, SAFE IN ENV? (Y/N) YES, NA INITIALS AW 1419, REVIEWED BY: KIRBY. EXAMINATION GENERAL EXAMINATION: PATIENT IS ALERT O X 3 AND COOPERATIVE. PATIENT HAS DIFFICULTY STANDING. ANTALGIC WALK. PATIENT IS LIMPING FROM THE LEFT LEG, WHICH IS WEAKER AT EXTENSION AND FLEXION. STRAIGHT LEG RAISE OF THE LEFT LEG IS POSITIVE AT 40 DEGREES FOR RADICULOPATHY. MRI OF THE LUMBAR SPINE DONE ON 11/01/2019 SHOWS SPINAL STENOSIS AND BULGING DISCS AT L4-L5 AND L5-S1 LEVELS. 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 YOUSIF'S PAIN MANAGEMENT CASE. DUE TO THE LUMBAR RADICULOPATHY, I WOULD LIKE TO MOVE FORWARD WITH A L5-S1 LUMBAR EPIDURAL STEROID INJECTION AT THIS TIME. WE DISCUSSED THE BENEFITS, RISKS, AND ALTERNATIVES OF THE INJECTION AND THE PATIENT WOULD LIKE TO PROCEED. I AM LOOKING FOR LONG LASTING PAIN RELIEF FROM THIS INJECTION FOR THE PATIENT. I DISCUSSED WITH THE PATIENT ABOUT REPLACING KENALOG WITH DEXAMETHASONE, WHICH IS A LESS POTENT STEROID, TO LESSEN THE RISK OF IMMUNOSUPPRESSION. THE PATIENT AGREED ON HAVING BEING TESTED FOR COVID-19 BEFORE THE PROCEDURE. WE DISCUSSED THE CONCERNS OF STEROIDS POTENTIALLY CAUSING IMMUNOSUPPRESSION SHORT-TERM AND FURTHER COMPLICATIONS IF THEY COME IN CONTACT WITH COVID-19, SUCH WORSE SYMPTOMS OR . THE PATIENT UNDERSTANDS, WOULD LIKE TO PROCEED WITH THE PROCEDURE, AND AGREES SHE WILL BE CAREFUL BY SELF ISOLATING FOR A WEEK OR MORE. THE PATIENT WILL STOP METHOTREXATE 2.5 MG BEFORE HER PROCEDURE. I DISCUSSED WITH THE PATIENT THAT SHE MAY BE A CANDIDATE FOR A MILD PROCEDURE IN THE FUTURE, AND I WOULD LIKE TO DISCUSS THE PATIENT'S MRI WITH DR. HALE. THE PATIENT WILL FOLLOW UP IN SEVERAL WEEKS AFTER HER INJECTION. INSTRUCTIONS WERE GIVEN, QUESTIONS WERE ANSWERED, PATIENT REPORTS UNDERSTANDING AND AGREES WITH THE PLAN. I, MARISOL DE JESUS, DOCUMENTED THE ABOVE INFORMATION ACTING A SCRIBE FOR DR. DEVLIN. I HAVE REVIEWED THE ABOVE DOCUMENT, WRITTEN BY MARISOL RAYMUNDO AND I VERIFY THAT IT IS ACCURATE. . PROCEDURE CODES G8427 CURRENT MEDS W/DOSAGES DOCUMENTED G8730 PAIN ASSESS POS TOOL F/U PLAN DOC FA211 ESTABILISHED PATIENT [facility] FACILITY CHARGE DISPOSITION & COMMUNICATION FOLLOW UP 3 WEEKS (REASON: L5-S1 LESI) ELECTRONICALLY SIGNED BY ANDRIY DEVLIN MD, MD ON 11/23/2019 AT 10:18 AM EDT DISCLAIMER : THIS IS A VISIT SUMMARY EXTRACTED FROM THE [employer] CHART. IT IS NOT A COPY OF THE [employer] PROGRESS NOTE. MTDD
== END ==
LOC: M PAIN 14:30
PROVIDERS: ATTEND Anesthesiology
DX: M48.062 Spinal stenosis, lumbar region with neurogenic claudication (principal); M51.17 Intervertebral disc disorders with radiculopathy, lumbosacral region; G89.29 Other chronic pain; E11.9 Type 2 diabetes mellitus without complications; I10 Essential (primary) hypertension; Z98.84 Bariatric surgery status; Z87.891 Personal history of nicotine dependence; Z88.5 Allergy status to narcotic agent; Z88.8 Allergy status to other drugs, medicaments and biological substances; Z91.040 Latex allergy status; Z91.09 Other allergy status, other than to drugs and biological substances; Z79.899 Other long term (current) drug therapy

== ENCOUNTER → 2019-11-24 | Outpatient (CLI) | payer MEDICARE, MEDICAID | LOC: M LABSMTC 08:56 | PROVIDERS: ATTEND Anesthesiology | DX: Z11.59 Encounter for screening for other viral diseases (principal) | CPT/HCPCS: C9803; U0003 ==

== ENCOUNTER → 2019-11-27 | Outpatient (CLI) | payer MEDICARE, MEDICAID ==
[~2019-11-27] MED LIST changes: +ISOVUE-M 300 61% 15ML VIAL As Ordered ONE; +LIDOCAINE 1% SDV 30ML VIAL As Ordered ONE; +dexameTHASONE 10MG/1ML VIAL PRES.FREE (J1100 PER 1MG) As Ordered ONE; +diazePAM 5 MG TAB As Ordered ONE; +diphenhydrAMINE 25MG CAP As Ordered ONE
--- NOTE | 2019-11-27 15:31 | REP ---
PARTIAL LUMBAR SPINE: Single view. HISTORY: Lumbar epidural for pain. 9 seconds of fluoroscopy time is reported. FINDINGS: A single last image hold fluoroscopically obtained spot radiograph of the lumbar spine documents needle position associated with lumbar injection procedure. Electronically Signed by Derrick Gauthier MD 11/27/2019 06:49 P
--- NOTE | 2019-11-30 01:18 | ECWPNPC ---
PATIENT NAME: DAYTON YOUSIF : 1960 GENDER: FEMALE VISIT DATE: 11/27/2019 DISCHARGE DATE: 11/27/19 1520 VISIT LOCKED DATE TIME: PHYSICIAN: ANDRIY DEVLIN MD RESOURCE: ANDRIY DEVLIN MD REASON FOR APPOINTMENT 1. LUMBAR EPIDURAL STEROID INJECTION L5/S1 HISTORY OF PRESENT ILLNESS HISTORY OF PRESENT ILLNESS: PAIN THE PATIENT DESCRIBES THE PAIN... FALL RISK SCREENING: SCREENING :NO FALLS REPORTED IN THE LAST YEAR CURRENT MEDICATIONS TAKING METHOTREXATE 2.5 MG TABLET 7 TABS ORALLY WEEKLY, NOTES: 10 DAYS TAKING LANCETS - MISCELLANEOUS DIRECTED TOPICALLY DAILY TAKING OMEPRAZOLE 20 MG CAPSULE DELAYED RELEASE 1 CAPSULE ORALLY EVERY OTHER DAY, NOTES: 11/25 AM TAKING LOSARTAN POTASSIUM 25 MG TABLET 1 TABLET ORALLY ONCE A DAY, NOTES: 11/26 8AM TAKING FOLIC ACID 1 MG TABLET 1 TABLET ORALLY ONCE A DAY, NOTES: 11/26 8AM TAKING VITAMIN B-12 5000 MCG LOZENGE ORALLY , NOTES: 11/26 8AM TAKING MULTIVITAMIN ADULT - TABLET ORALLY , NOTES: 11/26 8AM TAKING LYRICA 300 MG CAPSULE 1 CAPSULE ORALLY TWICE A DAY, NOTES: 11/26 8AM TAKING ESCITALOPRAM OXALATE 10 MG TABLET 1 TABLET ORALLY ONCE A DAY, NOTES: 11/25 9AM TAKING FLUTICASONE PROPIONATE 50 MCG/ACT SUSPENSION 1 SPRAY IN EACH NOSTRIL NASALLY ONCE A DAY, NOTES: 2 WEEKS TAKING CETIRIZINE HCL 10 MG TABLET 1 TABLET ORALLY ONCE A DAY, NOTES: 11/26 8AM TAKING POTASSIUM 99 MG TABLET 1 TABLET ORALLY ONCE A DAY, NOTES: 11/26 8AM TAKING PROBIOTIC - CAPSULE DIRECTED ORALLY , NOTES: 11/26 8AM MEDICATION LIST REVIEWED AND RECONCILED WITH THE PATIENT PAST MEDICAL HISTORY ARTHRITIS DIABETES: DIET CONTROLLED SINCE GASTRIC BYPASS GERD: RESOLVED AFTER GASTRIC BYPASS HYPERLIPIDEMIA HYPERTENSION 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 NIELSEN 12/2016 COLONOSCOPY 05/2011 COLONOSCOPY: ALANNAH PRADO 05/2017 ARTHROSCOPY SHOULDER WITH MANIPULATION- DR CORTES 04/2018 FAMILY HISTORY FATHER: 76 YRS, PULMONARY EMBOLISM, ABDOMINAL ANEURYSMS, DIAGNOSED WITH HYPERTENSION MOTHER: 79 YRS, CKD STAGE 4, UNSPECIFIED CEREBRAL ARTERY OCCLUSION WITH CEREBRAL INFARCTION 2 BROTHER(S) , 3 SISTER(S) - HEALTHY. 1 SON(S) - HEALTHY. DENIES FAMILY HX OF MELANOMA OR PANCREATIC CANCER. SOCIAL HISTORY GENERAL: TOBACCO USE ARE YOU A:FORMER SMOKER HOW LONG HAS IT BEEN SINCE YOU LAST SMOKED?5-10 YEARS LATEX QUESTIONNAIRE LATEX ALLERGY : HAVE YOU EVER DEVELOPED ANY TYPE OF REACTION AFTER HANDLING LATEX PRODUCTS SUCH RUBBER GLOVES, CONDOMS, DIAPHRAGMS, BALLOONS, SOCKS, OR UNDERWEAR?YES - PLEASE INDICATE :RUBBER GLOVES LATEX ALLERGY : HAVE YOU EVER DEVELOPED ANY TYPE OF REACTION DURING OR AFTER DENTAL APPOINTMENT, VAGINAL/RECTAL EXAMINATION, SURGICAL PROCEDURE, OR ANY OTHER EXPOSURE?NO LATEX RISK : HAVE YOU EVER HAD ANY DIFFICULTY BREATHING OR HIVES AFTER EATING OR HANDLING ANY FRUITS, OR VEGETABLES; SUCH KIWI, BANANAS, STONE FRUITS, OR CHESTNUTSNO LATEX RISK : DO YOU HAVE A PREVIOUS PERSONAL HISTORY OF MORE THAN NINE SURGERIES, SPINA BIFIDA, OR REPEATED CATHERIZATIONS? NO LATEX RISK : ARE YOU FREQUENTLY EXPOSED TO LATEX PRODUCTS IN YOUR OCCUPATION?NO DATE ASKED : 11/27/2019 BMI CARE GOAL FOLLOW-UP ABOVE NORMAL BMI FOLLOW-UPDIETARY MANAGEMENT EDUCATION, GUIDANCE, AND COUNSELING ALCOHOL SCREENING POINTS: 0, INTERPRETATION: NEGATIVE. RECREATIONAL DRUG USE DENIES. CAFFEINE NONE. SEXUAL HX HAD SEX IN THE LAST 12 MONTHS (VAGINAL, ORAL, OR ANAL)?: YES, WITH: MEN ONLY, HAVE YOU EVER HAD AN STD?: NO. HIV / HEP-C SCREENING HIV TEST OFFERED TO PATIENT:YES DATE OFFERED:06/25/2019 TEST ACCEPTED:NO HEP-C TEST OFFERED TO PATIENT:YES DATE OFFERED:06/25/2019 REASON:PATIENT DECLINED TEST ACCEPTED:NO REASON:PATIENT DECLINED BROCHURE PROVIDED TO PATIENTNO PENTECOSTAL NO PENTECOSTAL BELIEFS THAT WOULD IMPACT HEALTH CARE. LANGUAGE CROATIAN. LEARNING BARRIERS / SPECIAL NEEDS CHANGE FROM LAST VISIT?NO 11/15/2019 BARRIERS TO LEARNING?NO HEARING IMPAIRED?NO VISION IMPAIRED?NO WEARS GLASSES COGNITIVELY IMPAIRED?NO READINESS TO LEARN?YES LEARNING PREFERENCES?NO LEARNING CAPABILITIES PRESENT?YES EMOTIONAL BARRIERS?NO SPECIAL DEVICES?NO GEAR REPAIRER NEEDED?NO DOMESTIC VIOLENCE STATUS: DO YOU FEEL SAFE IN YOUR ENVIRONMENT?YES OCCUPATION: DISABLED SSI. DIET: REGULAR. EXERCISE: NO REGULAR EXERCISE. MARITAL STATUS: . OTHERS AT HOME: SPOUSE. NEW PATIENT PAIN DIARY TODAY'S VISIT 11/27/2019 PATIENT DESCRIBES PAIN :BURNING, IT COMES AND GOES FROM 0-10, WHAT LEVEL IS YOUR PAIN TODAY?6 PRECIPITATING FACTORS PROLONGED SITTING ,WALKING ALLEVIATING FACTORS NOTHING REALLY HELPS, HAS A CUSHION FOR THE CAR WHICH HELPS A LITTLE IMPACT ON FUNCTION YES PAIN CLINIC PFS, CLERGY, PUBLIC HEALTH REFERRALS WAS THE PROVIDER NOTIFIED OF ANY PERTINENT INFO?YES HAS THE PATIENT BEEN EDUCATED REGARDING HIS/HER PLAN OF CARE?YES HAS THE PATIENT BEEN EDUCATED REGARDING PAIN, THE RISK FOR PAIN, THE IMPORTANCE OF EFFECTIVE PAIN MANAGEMENT, AND THE PAIN ASSESSMENT PROCESS?YES HOUSING: RENTS APARTMENT. ADVANCE DIRECTIVE ADVANCE DIRECTIVE DISCUSSED WITH PATIENT:YES PT STATES THAT SHE DOES NOT HAVE HCP AT THIS TIME, DECLINES INFORMATION OR ASSISTANCE WITH PAPERWORK QUIT 2007. HOSPITALIZATION/MAJOR DIAGNOSTIC PROCEDURE SURGERY RELATED EYE PAIN @ [facility]. 01/05/2019 REVIEW OF SYSTEMS REVIEWED BY: PROVIDER: ANDRIY DEVLIN MD . CONSTITUTIONAL: ANY CHANGE IN YOUR MEDICAL CONDITION? NO . CHILLS NO . FEVER NO . INFECTION: DO YOU HAVE NEW INFECTIONS? NO . DO YOU HAVE HISTORY OF MRSA? NO . MUSCULOSKELETAL: ANY NEW PATTERNS OF PAIN OR NUMBNESS? NO . GASTROENTEROLOGY: ANY NEW CHANGE IN BOWEL CONTROL? NO . GENITOURINARY: ANY NEW CHANGE IN BLADDER CONTROL? NO . IS THERE A CHANCE YOU COULD BE ? NO . HEMATOLOGY/LYMPH: DO YOU TAKE ANY BLOOD THINNERS? (FOR EXAMPLE- COUMADIN, PLAVIX, AGGRENOX, PLATEL, PRADAXA, OR XARELTO) NO . WHEN WAS YOUR LAST DOSE? DATE: TIME: . NEUROLOGY: HAVE YOU FALLEN IN THE PAST 12 MONTHS? NO . ANY NEW EXTREMITY NUMBNESS OR WEAKNESS? NO . CARDIOLOGY: DO YOU HAVE A PACEMAKER OR DEFIBRILLATOR? NO . RESPIRATORY: HAVE YOU BEEN SICK IN THE PAST WEEK? NO . FEVER NO . FLU LIKE SYMPTOMS? NO . COUGH NO . INTEGUMENTARY: DO YOU HAVE ANY RASHES OR OPEN SORES? NO . ALLERGIC/IMMUNO: ARE YOU ALLERGIC TO IV DYE? YES, BREAKS OUT IN RASH . ANY NEW ALLERGIES? NO . PSYCHIATRIC: DO YOU HAVE THOUGHTS OF HURTING YOURSELF OR SOMEONE ELSE? NO . ARE YOU ABUSED, NEGLECTED, OR IN AN UNSAFE ENVIRONMENT? NO . ENDOCRINOLOGY: ARE YOU DIABETIC? NO . OTHER: DO YOU NEED ANY PRESCRIPTIONS? NO . IF YES, PLEASE LIST: ____ . ANY NEW PROBLEMS WITH YOUR MEDICATIONS? NO . WHEN DID YOU LAST EAT? 11/26 6:45AM . WHEN DID YOU LAST DRINK? 11/26 1045 . WHAT DID YOU LAST DRINK? WATER . NAME OF PERSON DRIVING YOU HOME? GIGI . DO YOU HAVE ANY OTHER QUESTIONS OR CONCERNS NO . VITAL SIGNS WT 241.0 LBS, HT 5'6", BMI 38.89 INDEX, BP 147/62 MM HG, HR 55 /MIN, RR 16 /MIN, TEMP 98.2 F, OXYGEN SAT % 96%, NA INITIALS AW 1307, REVIEWED BY: SATHYA. ASSESSMENTS SPONDYLOSIS WITHOUT MYELOPATHY OR RADICULOPATHY, LUMBAR REGION - M47.816 (PRIMARY) SPINAL STENOSIS OF LUMBAR REGION WITH NEUROGENIC CLAUDICATION - M48.062 TREATMENT SPINAL STENOSIS OF LUMBAR REGION WITH NEUROGENIC CLAUDICATION [facility] FLUORO GUIDE SPINE INJECTION (PAIN)[id number] OTHERS CLINICAL NOTES: PRE SCREENING CALL DONE 11/26/19 EM. PROCEDURES PRE PROCEDURE DIAGNOSIS LUMBAR DISC DISORDER WITH RADICULOPATHY, LUMBAR SPINAL STENOSIS POST PROCEDURE DIAGNOSIS LUMBAR DISC DISORDER WITH RADICULOPATHY, LUMBAR SPINAL STENOSIS PROCEDURE LUMBAR EPIDURAL STEROID INJECTION UNDER FLUOROSCOPIC GUIDANCE SURGEON DR. ANDRIY DEVLIN EXPERIMENTAL TECHNICIAN NONE ANESTHESIA LOCAL PRE PROCEDURE NOTE THE PATIENT HAS A HISTORY OF CHRONIC LOW BACK PAIN. I EVALUATED THE PATIENT AND REVIEWED THE CHART. I WENT OVER THE RISKS, ALTERNATIVES, AND BENEFITS ASSOCIATED WITH THIS PROCEDURE. I DISCUSSED THAT THE USE OF STEROIDS MAY CONTRIBUTE TO IMMUNOSUPPRESSION OF THE PATIENT'S BODY AGAINST INFECTIONS SUCH THE GUAJARDO VIRUS, COVID-19. THE PATIENT IS AWARE OF THE POTENTIAL COMPLICATIONS ASSOCIATED WITH AN INFECTION OF THIS VIRUS INCLUDING . THE PATIENT WOULD LIKE TO PROCEED AND GIVE CONSENT TO PERFORMED THE PROCEDURE. THE PATIENT DENIES UNEXPLAINABLE WEIGHT LOSS, FEVER, CHILLS, OR NEW CHANGES IN URINARY OR BOWEL CONTROL. THE PATIENT IS COVID-19 NEGATIVE DESCRIPTION OF PROCEDURE THE PATIENT WAS BROUGHT TO THE PROCEDURE ROOM AND PLACED IN THE PRONE POSITION. THE LUMBOSACRAL AREA WAS CLEANED WITH BETADINE SOLUTION AND DRAPED ASEPTICALLY. THE PROCEDURE WAS DONE UNDER STERILE CONDITIONS. I CHECKED LATERALITY AND THE LEVEL WHERE THE PROCEDURE WAS GOING TO BE PERFORMED WITH THE PATIENT AND THE SUPPORTING STAFF AT THE MOMENT OF THE TIME OUT IN THE PROCEDURE ROOM. UNDER FLUOROSCOPIC GUIDANCE, THE TARGET POINT WAS SELECTED AT THE INTERLAMINAR LEVEL OF L3-L4. LIDOCAINE WAS USED TO NUMB THE SKIN AND THE SUBCUTANEOUS TISSUE BELOW IT. EPIDURAL TUOHY NEEDLE, 17-GAUGE, WAS ADVANCED UNDER FLUOROSCOPIC GUIDANCE AND FOLLOWING PATIENT FEEDBACK UNTIL THE EPIDURAL SPACE WAS REACHED, 7 CM DEEP INTO THE SKIN BY THE LOSS OF RESISTANCE TECHNIQUE. THEN, A SOLUTION OF 3 ML OF NORMAL SALINE WITH DEXAMETHASONE 10 MG WAS INJECTED SLOWLY FOLLOWING PATIENT FEEDBACK. THERE WAS NO EVIDENCE OF BLOOD, PARESTHESIA OR CEREBROSPINAL FLUID DURING THE PROCEDURE. THE PATIENT WAS SENT TO THE RECOVERY ROOM. THE PATIENT WAS MOVING THE EXTREMITIES AND DOING WELL. THERE WAS NO COMPLICATION DURING THE PROCEDURE. FLUOROSCOPY TIME WAS 9 SECONDS POST PROCEDURE NOTE WE DID NOT USE DYE DURING THE PROCEDURE DUE TO THE PATIENT HAVING AN ALLERGY. THE PATIENT WILL BE SEEN IN A FOLLOW UP IN THE NEXT FEW WEEKS. I AM LOOKING FOR LONG LASTING PAIN RELIEF FOR THE PATIENT WITH THIS INJECTION. INSTRUCTIONS WERE GIVEN, QUESTIONS WERE ANSWERED, AND THE PATIENT EXPRESSED UNDERSTANDING AND AGREED WITH THE PLAN. THE PATIENT IS AWARE TO STAY HOME FOR THE NEXT WEEK, IF POSSIBLE, DUE TO COVID-19. I, GABE SALVADOR, DOCUMENTED THE ABOVE INFORMATION ACTING A SCRIBE FOR DR. DEVLIN. I HAVE REVIEWED THE ABOVE DOCUMENT, WRITTEN BY GABE SALVADOR, AUTOMOTIVE PARTS COORDINATOR, AND I VERIFY THAT IT IS ACCURATE PROCEDURE CODES 46026 LUMBAR/SACRAL W/ IMAGING DISPOSITION & COMMUNICATION FOLLOW UP F/UP WITH PANCAKE PROFESSIONAL (REASON: POST LESI) ELECTRONICALLY SIGNED BY ANDRIY DEVLIN MD, MD ON 11/29/2019 AT 11:42 AM EDT DISCLAIMER : THIS IS A VISIT SUMMARY EXTRACTED FROM THE [employer] CHART. IT IS NOT A COPY OF THE [employer] PROGRESS NOTE. MARY
== END ==
LOC: M PAIN 13:15
PROVIDERS: ATTEND Anesthesiology
DX: M47.816 Spondylosis without myelopathy or radiculopathy, lumbar region (principal); M48.062 Spinal stenosis, lumbar region with neurogenic claudication; E11.9 Type 2 diabetes mellitus without complications; I10 Essential (primary) hypertension; Z98.84 Bariatric surgery status; Z87.891 Personal history of nicotine dependence; Z88.5 Allergy status to narcotic agent; Z88.8 Allergy status to other drugs, medicaments and biological substances; Z91.040 Latex allergy status; Z91.041 Radiographic dye allergy status; Z91.09 Other allergy status, other than to drugs and biological substances; Z79.899 Other long term (current) drug therapy
CPT/HCPCS: 62323; J1100; Q9967

== ENCOUNTER → 2019-12-18 | Outpatient (CLI) | payer MEDICARE, MEDICAID ==
[~2019-12-18] MED LIST changes: -ISOVUE-M 300 61% 15ML VIAL As Ordered ONE; -LIDOCAINE 1% SDV 30ML VIAL As Ordered ONE; -dexameTHASONE 10MG/1ML VIAL PRES.FREE (J1100 PER 1MG) As Ordered ONE; -diazePAM 5 MG TAB As Ordered ONE; -diphenhydrAMINE 25MG CAP As Ordered ONE
--- NOTE | 2019-12-20 01:39 | ECWPNPC ---
PATIENT NAME: DAYTON YOUSIF : 1960 GENDER: FEMALE VISIT DATE: 12/18/2019 DISCHARGE DATE: 12/18/19 0759 VISIT LOCKED DATE TIME: PHYSICIAN: JOSE ENRIQUE CORTES RESOURCE: JOSE ENRIQUE CORTES REASON FOR APPOINTMENT 1. POST LESI HISTORY OF PRESENT ILLNESS GENERAL: PHONE CALL TO PATIENT WHO IS AGREEABLE TO TELEPHONE VISIT TODAY. HAD L3/4 LESI ON 11/27/2019. REPORTING SIGNIFICANT IMPROVEMENT DOWN TO 0/10 FOR APPROXIMATELY 1 WEEK POST PROCEDURE. STATES THAT SHE HAD HEART RACING FEELING FOR 2 DAYS POSTPROCEDURE. SHE DOES FOLLOW WITH CARDIOLOGY. SHE HAS AN UPCOMING APPOINTMENT WITH PRIMARY CARE AND CARDIOLOGY. WE WOULD NEED A MEDICAL CLEARANCE NOTE FROM THEM IN ORDER TO PROCEED WITH ANY MORE PROCEDURES AT OUR CLINIC. DISCUSSED MEDICATION AND TREATMENT OPTIONS.-. FALL RISK SCREENING: SCREENING :NO FALLS REPORTED IN THE LAST YEAR PAIN SCREENING: PATIENT HAS A COMPLAINT OF ACUTE OR CHRONIC PAIN :YES 12/17/19 INTENSITY OF PAIN (SCALE OF 1 TO 10):5 WHAT DOES YOUR PAIN FEEL LIKE:ACHING, BURNING, CONTINOUS, SHARP, STABBING, TENDER, THROBBING, SHOOTING PAIN IS INCREASED BY: SITTING PAIN IS DECREASED BY: NOTHING NURSING NOTE: -. PAIN CENTER INTAKE QUESTIONS: DO YOU HAVE A HISTORY OF MRSA? :NO DO YOU TAKE A BLOOD THINNERS? :NO DO YOU HAVE ANY BLEEDING DISORDERS? :NO ANY NEW NUMBNESS OR WEAKNESS IN YOUR LEGS OR ARMS? :NO ANY PACEMAKER,DEFIBRILLATOR, OR DORSAL COLUMN STIMULATOR? :NO DO YOU HAVE ANY RASHES OR OPEN SORES? :NO ARE YOU ALLERGIC TO IV DYE? :YES ARE YOU DIABETIC? :NO ANY NEW PROBLEMS WITH YOUR MEDICATIONS? :NO HAVE YOU RECEIVED A VACCINE IN THE PAST 30 DAYS? :NO DO YOU PLAN TO RECEIVE A VACCINE IN THE NEXT 21 DAYS? :NO DO YOU NEED ANY PRESCRIPTION? :NO DO YOU TAKE ANY IMMUNOSUPPRESSIVE MEDICATIONS? :NO CURRENT MEDICATIONS TAKING METHOTREXATE 2.5 MG TABLET 7 TABS ORALLY WEEKLY TAKING LANCETS MISC - MISCELLANEOUS DIRECTED TOPICALLY DAILY TAKING OMEPRAZOLE 20 MG CAPSULE DELAYED RELEASE 1 CAPSULE ORALLY EVERY OTHER DAY TAKING LOSARTAN POTASSIUM 25 MG TABLET 1 TABLET ORALLY ONCE A DAY TAKING FOLIC ACID 1 MG TABLET 1 TABLET ORALLY ONCE A DAY TAKING VITAMIN B-12 5000 MCG LOZENGE ORALLY TAKING MULTIVITAMIN ADULT - TABLET ORALLY TAKING ESCITALOPRAM OXALATE 10 MG TABLET 1 TABLET ORALLY ONCE A DAY TAKING FLUTICASONE PROPIONATE 50 MCG/ACT SUSPENSION 1 SPRAY IN EACH NOSTRIL NASALLY ONCE A DAY TAKING CETIRIZINE HCL 10 MG TABLET 1 TABLET ORALLY ONCE A DAY TAKING POTASSIUM 99 MG TABLET 1 TABLET ORALLY ONCE A DAY TAKING PROBIOTIC - CAPSULE DIRECTED ORALLY TAKING LYRICA 300 MG CAPSULE 1 CAPSULE ORALLY TWICE A DAY MEDICATION LIST REVIEWED AND RECONCILED WITH THE PATIENT PAST MEDICAL HISTORY ARTHRITIS DIABETES: DIET CONTROLLED SINCE GASTRIC BYPASS GERD: RESOLVED AFTER GASTRIC BYPASS HYPERLIPIDEMIA HYPERTENSION 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 NIELSEN 12/2016 COLONOSCOPY 05/2011 COLONOSCOPY: ALANNAH PRADO 05/2017 ARTHROSCOPY SHOULDER WITH MANIPULATION- DR CORTES 04/2018 FAMILY HISTORY FATHER: 76 YRS, PULMONARY EMBOLISM, ABDOMINAL ANEURYSMS, DIAGNOSED WITH HYPERTENSION MOTHER: 79 YRS, CKD STAGE 4, UNSPECIFIED CEREBRAL ARTERY OCCLUSION WITH CEREBRAL INFARCTION 2 BROTHER(S) , 3 SISTER(S) - HEALTHY. 1 SON(S) - HEALTHY. DENIES FAMILY HX OF MELANOMA OR PANCREATIC CANCER. SOCIAL HISTORY GENERAL: TOBACCO USE ARE YOU A:FORMER SMOKER HOW LONG HAS IT BEEN SINCE YOU LAST SMOKED?5-10 YEARS LATEX QUESTIONNAIRE LATEX ALLERGY : HAVE YOU EVER DEVELOPED ANY TYPE OF REACTION AFTER HANDLING LATEX PRODUCTS SUCH RUBBER GLOVES, CONDOMS, DIAPHRAGMS, BALLOONS, SOCKS, OR UNDERWEAR?YES LATEX ALLERGY : HAVE YOU EVER DEVELOPED ANY TYPE OF REACTION DURING OR AFTER DENTAL APPOINTMENT, VAGINAL/RECTAL EXAMINATION, SURGICAL PROCEDURE, OR ANY OTHER EXPOSURE?NO - PLEASE INDICATE :RUBBER GLOVES DATE ASKED : 11/27/2019 LATEX RISK : HAVE YOU EVER HAD ANY DIFFICULTY BREATHING OR HIVES AFTER EATING OR HANDLING ANY FRUITS, OR VEGETABLES; SUCH KIWI, BANANAS, STONE FRUITS, OR CHESTNUTSNO LATEX RISK : DO YOU HAVE A PREVIOUS PERSONAL HISTORY OF MORE THAN NINE SURGERIES, SPINA BIFIDA, OR REPEATED CATHERIZATIONS? NO LATEX RISK : ARE YOU FREQUENTLY EXPOSED TO LATEX PRODUCTS IN YOUR OCCUPATION?NO BMI CARE GOAL FOLLOW-UP ABOVE NORMAL BMI FOLLOW-UPDIETARY MANAGEMENT EDUCATION, GUIDANCE, AND COUNSELING ALCOHOL SCREENING POINTS: 0, INTERPRETATION: NEGATIVE. RECREATIONAL DRUG USE DENIES. CAFFEINE NONE. SEXUAL HX HAD SEX IN THE LAST 12 MONTHS (VAGINAL, ORAL, OR ANAL)?: YES, WITH: MEN ONLY, HAVE YOU EVER HAD AN STD?: NO. HIV / HEP-C SCREENING HIV TEST OFFERED TO PATIENT:YES DATE OFFERED:06/25/2019 TEST ACCEPTED:NO HEP-C TEST OFFERED TO PATIENT:YES DATE OFFERED:06/25/2019 REASON:PATIENT DECLINED TEST ACCEPTED:NO REASON:PATIENT DECLINED BROCHURE PROVIDED TO PATIENTNO NONDENOMINATIONAL NO BAHAI BELIEFS THAT WOULD IMPACT HEALTH CARE. LANGUAGE MALAGASY. LEARNING BARRIERS / SPECIAL NEEDS CHANGE FROM LAST VISIT?NO 11/15/2019 BARRIERS TO LEARNING?NO HEARING IMPAIRED?NO VISION IMPAIRED?NO WEARS GLASSES COGNITIVELY IMPAIRED?NO READINESS TO LEARN?YES LEARNING PREFERENCES?NO LEARNING CAPABILITIES PRESENT?YES EMOTIONAL BARRIERS?NO SPECIAL DEVICES?NO ASSISTANT BASKETBALL COACH NEEDED?NO DOMESTIC VIOLENCE STATUS: DO YOU FEEL SAFE IN YOUR ENVIRONMENT?YES OCCUPATION: DISABLED SSI. DIET: REGULAR. EXERCISE: NO REGULAR EXERCISE. MARITAL STATUS: . OTHERS AT HOME: SPOUSE. NEW PATIENT PAIN DIARY TODAY'S VISIT 11/27/2019 PATIENT DESCRIBES PAIN :BURNING, IT COMES AND GOES FROM 0-10, WHAT LEVEL IS YOUR PAIN TODAY?6 PRECIPITATING FACTORS PROLONGED SITTING ,WALKING ALLEVIATING FACTORS NOTHING REALLY HELPS, HAS A CUSHION FOR THE CAR WHICH HELPS A LITTLE IMPACT ON FUNCTION YES PAIN CLINIC PFS, CLERGY, PUBLIC HEALTH REFERRALS WAS THE PROVIDER NOTIFIED OF ANY PERTINENT INFO?YES HAS THE PATIENT BEEN EDUCATED REGARDING HIS/HER PLAN OF CARE?YES HAS THE PATIENT BEEN EDUCATED REGARDING PAIN, THE RISK FOR PAIN, THE IMPORTANCE OF EFFECTIVE PAIN MANAGEMENT, AND THE PAIN ASSESSMENT PROCESS?YES HOUSING: RENTS APARTMENT. ADVANCE DIRECTIVE ADVANCE DIRECTIVE DISCUSSED WITH PATIENT:YES PT STATES THAT SHE DOES NOT HAVE HCP AT THIS TIME, DECLINES INFORMATION OR ASSISTANCE WITH PAPERWORK QUIT 2007. HOSPITALIZATION/MAJOR DIAGNOSTIC PROCEDURE SURGERY RELATED EYE PAIN @ [facility]. 01/05/2019 REVIEW OF SYSTEMS CONSTITUTIONAL: ANY RECENT FEVER OR ILLNESS NO . CHILLS NO . GASTROENTEROLOGY: BOWEL INCONTINENCE NO . ANY NEW CHANGE IN BOWEL CONTROL? NO . ABDOMINAL PAIN NO . CONSTIPATION NO . GENITOURINARY: ANY NEW CHANGE IN BLADDER CONTROL? NO . IS THERE A CHANCE YOU COULD BE ? NO . URINARY INCONTINENCE NO . CARDIOLOGY: CHEST PRESSURE NO . CHEST PAIN NO . RESPIRATORY: COUGH NO . SHORTNESS OF BREATH NO . ASSESSMENTS SPONDYLOSIS WITHOUT MYELOPATHY OR RADICULOPATHY, LUMBAR REGION - M47.816 (PRIMARY) TREATMENT SPONDYLOSIS WITHOUT MYELOPATHY OR RADICULOPATHY, LUMBAR REGION NOTES: CONTINUE CONSERVATIVE CARE FOR CHRONIC LOW BACK PAIN. PATIENT WILL REQUEST MEDICAL CLEARANCE IN REGARDS TO USE OF LOCAL NUMBING AGENT AND STEROIDS WITH HER HISTORY OF HEART PALPITATIONS/RACING FOR 2 DAYS POSTPROCEDURE. FOLLOW-UP IS SCHEDULED IN FEBRUARY TO REEVALUATE CONDITION AND SUGGESTS TREATMENT PLAN. PATIENT VOICES UNDERSTANDING AND HER QUESTIONS WERE ANSWERED. TOTAL TIME SPENT DURING TELEPHONE VISIT WAS APPROXIMATELY 12 MINUTES. OTHERS CLINICAL NOTES: PRE SCREENING CALL DONE 12/17/19 EM. DISPOSITION & COMMUNICATION FOLLOW UP TEN-WEEK FOLLOW-UP IN CLINIC LOW BACK PAIN (REASON: CHECK ON CARDIOLOGY/PRIMARY CARE CLEARANCE) ELECTRONICALLY SIGNED BY RENATO SPENCER ON 12/19/2019 AT 03:01 PM EDT DISCLAIMER : THIS IS A VISIT SUMMARY EXTRACTED FROM THE [employer] CHART. IT IS NOT A COPY OF THE [employer] PROGRESS NOTE. MARY
== END ==
LOC: M PAIN 09:45
PROVIDERS: ATTEND Nurse Practitioner Family
DX: M47.816 Spondylosis without myelopathy or radiculopathy, lumbar region (principal)

== ENCOUNTER → 2020-01-01 | Outpatient (REF) | payer MEDICARE, MEDICAID ==
[2020-01-02 14:59] LABS: ALBUMIN 3.2 GM/DL (3.2-5.2); ALT/SGPT 21 U/L (12-78); BILIRUBIN,TOTAL 0.4 MG/DL (0.2-1.0); BLOOD UREA NITROGEN 15 MG/DL (7-18); CALCIUM LEVEL 8.6 MG/DL (8.5-10.1); CARBON DIOXIDE LEVEL 27 MEQ/L (21-32); CHLORIDE LEVEL 112 MEQ/L (98-107); CHOLESTEROL LEVEL 182 MG/DL (<200); CHOLESTEROL RISK RATIO 3.791 (<5); CREATININE FOR GFR 0.97 MG/DL (0.55-1.30); FOLATE > 24.0 NG/ML (>5.4); GLOMERULAR FILTRATION RATE > 60.0 (>51); GLUCOSE, FASTING 84 MG/DL (70-100); HDL CHOLESTEROL 48 MG/DL (>40); IRON (FE) 46 UG/DL (50-170); LDL CHOLESTEROL 85 MG/DL (<100); MAGNESIUM LEVEL 2.3 MG/DL (1.8-2.4); NON-HDL-C 134 MG/DL; SODIUM LEVEL 142 MEQ/L (136-145); THYROID STIMULATING HORMONE 0.978 uIU/ML (0.358-3.740); TOTAL PROTEIN 6.8 GM/DL (6.4-8.2); TRIGLYCERIDES LEVEL 246 MG/DL (<150); VITAMIN B12 LEVEL 1032 PG/ML (247-911)
[2020-01-02 15:15] LABS: HEMOGLOBIN A1c 5.8 %
[2020-01-02 15:22] LABS: BASO # 0.1 10^3/uL (0.0-0.2); BASO % 1.5 % (0.0-1.0); EOS # 0.2 10^3/uL (0.0-0.5); EOS % 2.9 % (0.0-3.0); HEMATOCRIT 40.4 % (36.0-47.0); HEMOGLOBIN 12.5 g/dl (12.0-15.5); LYMPH # 2.1 10^3/uL (1.5-5.0); LYMPH % 26.8 % (24.0-44.0); MEAN CORPUSCULAR HEMOGLOBIN 28.3 pg (27.0-33.0); MEAN CORPUSCULAR HGB CONC 30.9 g/dl (32.0-36.5); MEAN CORPUSCULAR VOLUME 91.4 fl (80.0-96.0); MONO # 0.7 10^3/uL (0.0-0.8); MONO % 9.4 % (0.0-5.0); NEUTROPHILS # 4.7 10^3/uL (1.5-8.5); NEUTROPHILS % 59.1 % (36.0-66.0); PLATELET COUNT, AUTOMATED 318 10^3/uL (150-450); RED BLOOD COUNT 4.42 10^6/uL (4.00-5.40); WHITE BLOOD COUNT 7.9 10^3/uL (4.0-10.0)
== END ==
LOC: M SFHCCLAY 14:34
PROVIDERS: ATTEND Family Medicine
DX: E11.9 Type 2 diabetes mellitus without complications (principal); I10 Essential (primary) hypertension; E78.5 Hyperlipidemia, unspecified; Z98.84 Bariatric surgery status
CPT/HCPCS: 80053; 80061; 82607; 82652; 82746; 83036; 83540; 83735; 84443; 85025; G0463

== ENCOUNTER → 2020-02-26 | Outpatient (CLI) | payer MEDICARE, MEDICAID ==
[2020-04-14 21:57] LABS: BASO # 0.1 10^3/uL (0.0-0.2); BASO % 1.7 % (0.0-1.0); EOS # 0.4 10^3/uL (0.0-0.5); EOS % 5.9 % (0.0-3.0); HEMATOCRIT 39.4 % (36.0-47.0); HEMOGLOBIN 12.6 g/dl (12.0-15.5); LYMPH # 1.8 10^3/uL (1.5-5.0); LYMPH % 28.4 % (24.0-44.0); MEAN CORPUSCULAR HEMOGLOBIN 28.7 pg (27.0-33.0); MEAN CORPUSCULAR VOLUME 89.7 fl (80.0-96.0); MONO # 0.5 10^3/uL (0.0-0.8); MONO % 8.3 % (0.0-5.0); NEUTROPHILS # 3.6 10^3/uL (1.5-8.5); NEUTROPHILS % 55.2 % (36.0-66.0); PLATELET COUNT, AUTOMATED 295 10^3/uL (150-450); RED BLOOD COUNT 4.39 10^6/uL (4.00-5.40); WHITE BLOOD COUNT 6.5 10^3/uL (4.0-10.0)
[2020-04-14 22:14] LABS: ERYTHROCYTE SEDIMENTATION RATE 29 mm/hr (0-30)
[2020-04-21 03:46] LABS: ALBUMIN 3.1 GM/DL (3.2-5.2); ALT/SGPT 24 U/L (12-78); BILIRUBIN,TOTAL 0.4 MG/DL (0.2-1.0); BLOOD UREA NITROGEN 15 MG/DL (7-18); CALCIUM LEVEL 8.5 MG/DL (8.5-10.1); CARBON DIOXIDE LEVEL 29 MEQ/L (21-32); CHLORIDE LEVEL 114 MEQ/L (98-107); CREATININE FOR GFR 0.85 MG/DL (0.55-1.30); GLOMERULAR FILTRATION RATE > 60.0 (>51); GLUCOSE, FASTING 88 MG/DL (70-100); POTASSIUM SERUM 3.7 MEQ/L (3.5-5.1); SODIUM LEVEL 145 MEQ/L (136-145); TOTAL PROTEIN 6.7 GM/DL (6.4-8.2)
== END ==
LOC: M LAB 07:05
PROVIDERS: ATTEND Internal Medicine Rheumatology
DX: M05.79 Rheumatoid arthritis with rheumatoid factor of multiple sites without organ or systems involvement (principal); M54.5 Low back pain
CPT/HCPCS: 36415; 80053; 85025; 85652; 86140; G0463

== ENCOUNTER → 2020-02-26 | Outpatient (POV) | payer MEDICARE, MEDICAID | LOC: M PAIN 09:00 | PROVIDERS: ATTEND Nurse Practitioner Family | DX: M54.5 Low back pain (principal) ==

== ENCOUNTER → 2020-05-23 | Outpatient (CLI) | payer MEDICARE, MEDICAID ==
--- NOTE | 2020-05-28 00:18 | ECWPNPC ---
PATIENT NAME: DAYTON YOUSIF : 1960 GENDER: FEMALE VISIT DATE: 05/23/2020 DISCHARGE DATE: 05/23/20 1607 VISIT LOCKED DATE TIME: PHYSICIAN: ANDRIY DEVLIN MD RESOURCE: ANDRIY DEVLIN MD REASON FOR APPOINTMENT 1. DISCUSS MILD/VERTIFLEX HISTORY OF PRESENT ILLNESS GENERAL: 60-YEAR-OLD FEMALE PATIENT WITH A HISTORY OF CHRONIC LOW BACK AND MAINLY RIGHT LEG PAIN. THE PATIENT HAS BEEN SUFFERING FROM THIS PAIN FOR MANY YEARS. THE PATIENT DESCRIBES THE PAIN SHARP, STABBING AND CONTINUOUS WITH A PAIN SCORE RANGING FROM 4-9/10 DEPENDING ON PHYSICAL ACTIVITY. THE PAIN INCREASES WITH ACTIVITIES. THE PATIENT HAS PAIN MAINLY IN THE BACK WITH RADIATION TO THE BUTTOCK AND THE LEGS. IT STARTED IN THE LEFT LEG AND IS NOW DOWN HER RIGHT LEG. THE PATIENT STATES THAT WHEN SHE WALKS HER PAIN IS WORSE AND WHEN SHE WALKS SHE GETS MORE PAIN DOWN HER LEGS. THE PATIENT STATES THAT THE EPIDURAL DONE IN NOVEMBER HELPED FOR A FEW WEEKS AND SHE STATES THAT A FEW DAYS AFTER, HER HEART RATE INCREASED. PATIENT DENIES UNEXPLAINABLE WEIGHT LOSS, FEVER, CHILLS, NEW CHANGES ON URINARY OR BOWEL CONTROL. FALL RISK SCREENING: SCREENING :NO FALLS REPORTED IN THE LAST YEAR PAIN SCREENING: PATIENT HAS A COMPLAINT OF ACUTE OR CHRONIC PAIN :YES LOCATION OF PAIN: LOW BACK, BOTH LEGS INTENSITY OF PAIN (SCALE OF 1 TO 10):5 WHAT DOES YOUR PAIN FEEL LIKE:SHARP, STABBING, CONTINOUS DURATION:CONTINOUS PAIN IS INCREASED BY:ACTIVITIES, PROLONGED STANDING NURSING NOTE: -. PAIN CENTER INTAKE QUESTIONS: DO YOU HAVE A HISTORY OF MRSA? :NO DO YOU TAKE A BLOOD THINNERS? :NO DO YOU HAVE ANY BLEEDING DISORDERS? :NO ANY NEW NUMBNESS OR WEAKNESS IN YOUR LEGS OR ARMS? :YES NUMBENESS IN AM INTERMITTENT THROUGHOUT DAY IN RIGHT LIGHT FINGER ANY PACEMAKER,DEFIBRILLATOR, OR DORSAL COLUMN STIMULATOR? :NO DO YOU HAVE ANY RASHES OR OPEN SORES? :NO ARE YOU ALLERGIC TO IV DYE? :YES ARE YOU DIABETIC? :YES "I DONT THAT" PATIENT REPORTS DIABETES CLEARED UP AFTER GASTRIC BYPASS ANY NEW PROBLEMS WITH YOUR MEDICATIONS? :NO HAVE YOU RECEIVED A VACCINE IN THE PAST 30 DAYS? :NO DO YOU PLAN TO RECEIVE A VACCINE IN THE NEXT 21 DAYS? :NO DO YOU NEED ANY PRESCRIPTION? :NO DO YOU TAKE ANY IMMUNOSUPPRESSIVE MEDICATIONS? :NO IS THERE A CHANCE YOU COULD BE ? :NO ARE YOU BREAST FEEDING? :NO CURRENT MEDICATIONS TAKING METHOTREXATE 2.5 MG TABLET 7 TABS ORALLY WEEKLY TAKING LANCETS - MISCELLANEOUS DIRECTED TOPICALLY DAILY TAKING LOSARTAN POTASSIUM 25 MG TABLET 1 TABLET ORALLY ONCE A DAY TAKING VITAMIN B-12 5000 MCG LOZENGE ORALLY TAKING MULTIVITAMIN ADULT - TABLET ORALLY TAKING POTASSIUM 99 MG TABLET 1 TABLET ORALLY ONCE A DAY TAKING LYRICA 300 MG CAPSULE 1 CAPSULE ORALLY TWICE A DAY TAKING FLUTICASONE PROPIONATE 50 MCG/ACT SUSPENSION 1 SPRAY IN EACH NOSTRIL NASALLY ONCE A DAY TAKING DULOXETINE HCL 20 MG CAPSULE DELAYED RELEASE PARTICLES 1 CAPSULE ORALLY TWICE A DAY NOT-TAKING OMEPRAZOLE 20 MG CAPSULE DELAYED RELEASE 1 CAPSULE ORALLY EVERY OTHER DAY NOT-TAKING FOLIC ACID 1 MG TABLET 1 TABLET ORALLY ONCE A DAY NOT-TAKING PROBIOTIC - CAPSULE DIRECTED ORALLY NOT-TAKING ESCITALOPRAM OXALATE 10 MG TABLET 1 TABLET ORALLY ONCE A DAY NOT-TAKING CETIRIZINE HCL 10 MG TABLET 1 TABLET ORALLY ONCE A DAY NOT-TAKING ESCITALOPRAM OXALATE 10 MG TABLET TAKE ONE TABLET BY MOUTH EVERY DAY MEDICATION LIST REVIEWED AND RECONCILED WITH THE PATIENT PAST MEDICAL HISTORY ARTHRITIS DIABETES: DIET CONTROLLED SINCE GASTRIC BYPASS GERD: RESOLVED AFTER GASTRIC BYPASS HYPERLIPIDEMIA HYPERTENSION 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 MELISA: NO TREATMENT SINCE GASTRIC BYPASS: UNABLE TO TOLERATE MASK IN THE PAST FIBROMYALGIA ALLERGIES LATEX: HSU SKIN VICODIN: PASS OUT TAPE: HSU SKIN CONTRAST DYE: HIVES ADIS SCAN: ANAPHYLAXIS LOVENOX: ITCHING FERROUS GLUCONATE: CONSTIPATION - SIDE EFFECTS VELCRO SUTURES: INFECTION PERCOCET: RACING HEART - SIDE EFFECTS TRAMADOL HCL: RACING HEART - SIDE EFFECTS SURGICAL HISTORY ENDOMETRIOSIS X 5 HYSTERECTOMY 1986 SHOULDER SURGERY X 2 GALL BLADDER REMOVAL APPENDENCTOMY ANKLE SURGERY NECK SURGERY- FUSION 3-4 AND 5-6 DENTAL EXTRACTIONS 2017 GASTRIC BYPASS: DR. NIELSEN 12/2016 COLONOSCOPY 05/2011 COLONOSCOPY: ALANNAH PRADO 05/2017 ARTHROSCOPY SHOULDER WITH MANIPULATION- DR CORTES 04/2018 FAMILY HISTORY FATHER: 76 YRS, PULMONARY EMBOLISM, ABDOMINAL ANEURYSMS, DIAGNOSED WITH HYPERTENSION MOTHER: 79 YRS, CKD STAGE 4, UNSPECIFIED CEREBRAL ARTERY OCCLUSION WITH CEREBRAL INFARCTION 2 BROTHER(S) , 3 SISTER(S) - HEALTHY. 1 SON(S) - HEALTHY. DENIES FAMILY HX OF MELANOMA OR PANCREATIC CANCER. SOCIAL HISTORY GENERAL: TOBACCO USE ARE YOU A:FORMER SMOKER HOW LONG HAS IT BEEN SINCE YOU LAST SMOKED?5-10 YEARS LATEX QUESTIONNAIRE LATEX ALLERGY : HAVE YOU EVER DEVELOPED ANY TYPE OF REACTION AFTER HANDLING LATEX PRODUCTS SUCH RUBBER GLOVES, CONDOMS, DIAPHRAGMS, BALLOONS, SOCKS, OR UNDERWEAR?YES - PLEASE INDICATE :RUBBER GLOVES DOCUMENTED LATEX ALLERGY LATEX ALLERGY : HAVE YOU EVER DEVELOPED ANY TYPE OF REACTION DURING OR AFTER DENTAL APPOINTMENT, VAGINAL/RECTAL EXAMINATION, SURGICAL PROCEDURE, OR ANY OTHER EXPOSURE?NO LATEX RISK : HAVE YOU EVER HAD ANY DIFFICULTY BREATHING OR HIVES AFTER EATING OR HANDLING ANY FRUITS, OR VEGETABLES; SUCH KIWI, BANANAS, STONE FRUITS, OR CHESTNUTSNO LATEX RISK : DO YOU HAVE A PREVIOUS PERSONAL HISTORY OF MORE THAN NINE SURGERIES, SPINA BIFIDA, OR REPEATED CATHERIZATIONS? NO LATEX RISK : ARE YOU FREQUENTLY EXPOSED TO LATEX PRODUCTS IN YOUR OCCUPATION?NO DATE ASKED : 05/23/2020 BMI CARE GOAL FOLLOW-UP ABOVE NORMAL BMI FOLLOW-UPDIETARY MANAGEMENT EDUCATION, GUIDANCE, AND COUNSELING ALCOHOL SCREENING POINTS: 0, INTERPRETATION: NEGATIVE. RECREATIONAL DRUG USE DENIES. CAFFEINE NONE. SEXUAL HX HAD SEX IN THE LAST 12 MONTHS (VAGINAL, ORAL, OR ANAL)?: YES, WITH: MEN ONLY, HAVE YOU EVER HAD AN STD?: NO. HIV / HEP-C SCREENING HIV TEST OFFERED TO PATIENT:YES DATE OFFERED:01/01/2020 TEST ACCEPTED:NO HEP-C TEST OFFERED TO PATIENT:YES DATE OFFERED:01/01/2020 REASON:PATIENT DECLINED TEST ACCEPTED:NO REASON:PATIENT DECLINED BROCHURE PROVIDED TO PATIENTNO RESTORATION NO HOAHAOISM BELIEFS THAT WOULD IMPACT HEALTH CARE. LANGUAGE LIBYAN. LEARNING BARRIERS / SPECIAL NEEDS CHANGE FROM LAST VISIT?NO 11/15/2019 BARRIERS TO LEARNING?NO HEARING IMPAIRED?NO VISION IMPAIRED?NO WEARS GLASSES COGNITIVELY IMPAIRED?NO READINESS TO LEARN?YES LEARNING PREFERENCES?NO LEARNING CAPABILITIES PRESENT?YES EMOTIONAL BARRIERS?NO SPECIAL DEVICES?NO BINDERY MACHINE FEEDER OFFBEARER NEEDED?NO DOMESTIC VIOLENCE STATUS: DO YOU FEEL SAFE IN YOUR ENVIRONMENT?YES OCCUPATION: DISABLED SSI. DIET: REGULAR. EXERCISE: NO REGULAR EXERCISE. MARITAL STATUS: . OTHERS AT HOME: SPOUSE. PAIN CLINIC PFS, CLERGY, PUBLIC HEALTH REFERRALS WAS THE PROVIDER NOTIFIED OF ANY PERTINENT INFO?YES HAS THE PATIENT BEEN EDUCATED REGARDING HIS/HER PLAN OF CARE?YES HAS THE PATIENT BEEN EDUCATED REGARDING PAIN, THE RISK FOR PAIN, THE IMPORTANCE OF EFFECTIVE PAIN MANAGEMENT, AND THE PAIN ASSESSMENT PROCESS?YES HOUSING: RENTS APARTMENT. ADVANCE DIRECTIVE ADVANCE DIRECTIVE DISCUSSED WITH PATIENT:YES PT STATES THAT SHE DOES NOT HAVE HCP AT THIS TIME, DECLINES INFORMATION OR ASSISTANCE WITH PAPERWORK QUIT 2007. HOSPITALIZATION/MAJOR DIAGNOSTIC PROCEDURE SURGERY RELATED EYE PAIN @ [facility] 01/05/2019 REVIEW OF SYSTEMS CONSTITUTIONAL: ANY RECENT FEVER NO . CHILLS NO . WEIGHT CHANGE OF UNKNOWN REASONS NO . GASTROENTEROLOGY: NEW UNEXPLAINABLE CHANGES IN BOWEL CONTROL NO . CONSTIPATION NO . GENITOURINARY: ANY NEW CHANGE IN BLADDER CONTROL? NO . NEUROLOGY: NEW ONSET DIZZINESS OR NEUROLOGICAL CHANGES NOT MENTIONED NO . NEW NUMBNESS OR PAIN PATTERNS NOT MENTIONED AND PERTINENT TO TODAY'S VISIT NO . CARDIOLOGY: NEW CHEST PRESSURE NO . NEW CHEST PAIN NO . RESPIRATORY: UNEXPLAINABLE COUGH NO . NEW SHORTNESS OF BREATH NO . VITAL SIGNS WT 256 LBS, HT 5'6", BMI 41.31 INDEX, BP 150/74 MM HG, HR 62 /MIN, RR 16 /MIN, TEMP 96.2 F, OXYGEN SAT % 97% RA, SAFE IN ENV? (Y/N) YES, NA INITIALS TN, REVIEWED BY: MTM. [facility]UGAN HOSPITALITY RECRUITER. EXAMINATION GENERAL EXAMINATION: THE PATIENT IS ALERT, ORIENTED TIMES THREE AND COOPERATIVE. HEART SHOWS REGULAR RHYTHM, NO MURMURS AND NO GALLOPS. LUNGS ARE CLEAR TO AUSCULTATION. HER WALK IS ANTALGIC. THE PATIENT IS LIMPING DOWN HER RIGHT LEG. THERE IS TENDERNESS IN THE LOWER BACK IN THE PARASPINAL MUSCLE GROUP. THE RIGHT LEG IS WAY WEAKER THAN THE LEFT LEG ON FLEXION AND EXTENSION. STRAIGHT LEG RAISE IS POSITIVE FOR RADICULOPATHY ON THE RIGHT AT 50 DEGREES. LUMBOSACRAL MRI DATED 11/01/2019 SHOWS CENTRAL CANAL STENOSIS AT DIFFERENT LEVELS, FACET ARTHROPTHY CHANGES, THICKENING OF THE LIGAMENTUM FLAVVUM. ASSESSMENTS LUMBAR RADICULOPATHY - M54.16 (PRIMARY) INTERVERTEBRAL DISC DISORDERS WITH RADICULOPATHY, LUMBAR REGION - M51.16 TREATMENT LUMBAR RADICULOPATHY NOTES: 05/23/20 1605 PRE PROCEDURE INSTRUCTIONS REVIEWED WITH PATIENT FOR LUMBAR EPIDURAL STEROID INJECTION AND HAND OUT ABOUT LESI GIVEN TO PATIENT, PATIENT VERBALIZES UNDERSTANDING ABOUT PROCEDURE AND PRE PROCEDURE INSTRUTIONS. CLINICAL NOTES: I DISCUSSED ALTERNATIVES WITH MS. YOUSIF. THE PATIENT THINKS THAT THE BLENDING SUPERVISOR REPORTS THAT THE INCREASED HEART RATE WAS DUE TO THE INJECTION. I WOULD LIKE TO SEE A CLEARANCE FROM THE BLENDING SUPERVISOR. I WOULD LIKE TO REQUEST AUTHORIZATION FOR A LUMBAR EPIDURAL AT L3-L4, L4-L5 AFTER WE GET THE CLEARANCE. THE PATIENT MAY BE A CANDIDATE FOR MORE INTERVENTION SUCH VERTIFLEX OR MILD BUT I WANT TO SEE HOW SHE RESPONDS TO EPIDURALS IN OTHER LEVELS. THE PATIENT WILL FOLLOW UP WITH THE NURSE PRACTITIONER FOR MEDICATION MANAGEMENT. THE PATIENT REPORTS UNDERSTANDING AND AGREES WITH THE PLAN. I, GABE SALVADOR, DOCUMENTED THE ABOVE INFORMATION ACTING A SCRIBE FOR DR. DEVLIN. I HAVE REVIEWED THE ABOVE DOCUMENT, WRITTEN BY GABE SALVADOR, YOUTH MANAGER, AND I VERIFY THAT IT IS ACCURATE. PROCEDURE CODES 14973 OFFICE/OUTPATIENT VISIT EST FA211 ESTABILISHED PATIENT [facility] CHARGE DISPOSITION & COMMUNICATION FOLLOW UP REQUEST AUTH FOR LESI L3-L4, L4-L5, NEED MED CLEARANCE 1ST (REASON: REQUEST AUTH FOR LESI L3-L4, L4-L5, NEED MED CLEARANCE 1ST. DO NOT BOOK UNTIL CLEARANCE REVIEW BY DR. Vargas) ELECTRONICALLY SIGNED BY ANDRIY DEVLIN MD, MD ON 05/27/2020 AT 01:29 PM EST DISCLAIMER : THIS IS A VISIT SUMMARY EXTRACTED FROM THE [employer] CHART. IT IS NOT A COPY OF THE [employer] PROGRESS NOTE. MTDD
== END ==
LOC: M PAIN 14:15
PROVIDERS: ATTEND Anesthesiology
DX: M54.16 Radiculopathy, lumbar region (principal); G89.29 Other chronic pain; E11.9 Type 2 diabetes mellitus without complications; I10 Essential (primary) hypertension; M79.7 Fibromyalgia; Z98.84 Bariatric surgery status; Z87.891 Personal history of nicotine dependence; Z88.5 Allergy status to narcotic agent; Z88.8 Allergy status to other drugs, medicaments and biological substances; Z91.040 Latex allergy status; Z91.041 Radiographic dye allergy status; Z91.09 Other allergy status, other than to drugs and biological substances; E66.01 Morbid (severe) obesity due to excess calories; Z68.41 Body mass index [BMI] 40.0-44.9, adult; Z79.899 Other long term (current) drug therapy

== ENCOUNTER → 2020-07-07 | Outpatient (CLI) | payer MEDICARE, MEDICAID ==
--- NOTE | 2020-07-07 09:55 | REP ---
INDICATION: RT HIP PAIN COMPARISON: 03/09/2016 TECHNIQUE: AP and frog-lateral views of the right hip FINDINGS: Generalized age-related changes include subtle increased sclerosis to the acetabulum with minimal joint space narrowing. No further overt osteoarthritic or significant degenerative changes are appreciated. No evidence for acute or healed injury. Surrounding soft tissues are normal. IMPRESSION: Mild generalized age-related changes. <Electronically signed by Mendel Colon > 07/07/20 0936
== END ==
LOC: M CLY 09:24
PROVIDERS: ATTEND Family Medicine
DX: M25.551 Pain in right hip (principal); E11.9 Type 2 diabetes mellitus without complications
CPT/HCPCS: 73502; 80048; 83036; G0463

== ENCOUNTER → 2020-07-07 | Outpatient (REF) | payer MEDICARE, MEDICAID ==
[2020-07-07 12:10] LABS: HEMOGLOBIN A1c 5.5 %
[2020-07-07 12:34] LABS: BLOOD UREA NITROGEN 14 MG/DL (7-18); CARBON DIOXIDE LEVEL 28 MEQ/L (21-32); CHLORIDE LEVEL 110 MEQ/L (98-107); CREATININE FOR GFR 0.85 MG/DL (0.55-1.30); GLOMERULAR FILTRATION RATE > 60.0 (>51); GLUCOSE, FASTING 86 MG/DL (70-100); POTASSIUM SERUM 4.4 MEQ/L (3.5-5.1); SODIUM LEVEL 144 MEQ/L (136-145)
== END ==
LOC: M SFHCCLAY 09:08
PROVIDERS: ATTEND Family Medicine
DX: E11.9 Type 2 diabetes mellitus without complications (principal)

== ENCOUNTER → 2020-08-28 | Outpatient (CLI) | payer MEDICARE, MEDICAID | LOC: M LABSMTC 12:41 | PROVIDERS: ATTEND Anesthesiology | DX: Z20.822 Contact with and (suspected) exposure to COVID-19 (principal) ==

== ENCOUNTER → 2020-09-02 | Outpatient (CLI) | payer MEDICARE, MEDICAID ==
[~2020-09-02] MED LIST changes: +ISOVUE-M 300 61% 15ML VIAL As Ordered ONE; +LIDOCAINE 1% SDV 30ML VIAL As Ordered ONE; +diazePAM 5MG TABLET As Ordered ONE; +diphenhydrAMINE 25MG CAP As Ordered ONE; +methylPREDNISolone SUSP 40MG/ML 1ML VIAL (DEPO MEDROL) As Ordered ONE
--- NOTE | 2020-09-02 15:41 | REP ---
INDICATION: LUMBAR EPIDURAL STEROID INJECTION. COMPARISON: None. TECHNIQUE: Four views. 25.8 seconds of fluoroscopy time is reported. FINDINGS: A sequence of 4 last image hold fluoroscopically obtained spot radiograph(s) of the lumbar spine document(s) needle position(s) and contrast injection associated with injection procedure. IMPRESSION: Procedural imaging. <Electronically signed by Armando Gauthier > 09/02/20 [id number]
--- NOTE | 2020-09-04 00:41 | ECWPNPC ---
PATIENT NAME: DAYTON YOUSIF : 1960 GENDER: FEMALE VISIT DATE: 09/02/2020 DISCHARGE DATE: 09/02/20 1330 VISIT LOCKED DATE TIME: PHYSICIAN: ANDRIY DEVLIN MD RESOURCE: ANDRIY DEVLIN MD REASON FOR APPOINTMENT 1. LUMBAR EPIDURAL STEROID INJECTION HISTORY OF PRESENT ILLNESS PAIN CENTER INTAKE QUESTIONS: DO YOU HAVE A HISTORY OF MRSA? :NO DO YOU TAKE A BLOOD THINNERS? :NO DO YOU HAVE ANY BLEEDING DISORDERS? :NO ANY NEW NUMBNESS OR WEAKNESS IN YOUR LEGS OR ARMS? :NO ANY PACEMAKER,DEFIBRILLATOR, OR DORSAL COLUMN STIMULATOR? :NO DO YOU HAVE ANY RASHES OR OPEN SORES? :NO ARE YOU ALLERGIC TO IV DYE? :YES HIVES ARE YOU DIABETIC? :NO ANY NEW PROBLEMS WITH YOUR MEDICATIONS? :NO HAVE YOU RECEIVED A VACCINE IN THE PAST 30 DAYS? :NO DO YOU PLAN TO RECEIVE A VACCINE IN THE NEXT 21 DAYS? :NO ONLY IF COVID VACCINE IS AVAILABLE DO YOU TAKE ANY IMMUNOSUPPRESSIVE MEDICATIONS? :NO ANY HISTORY OF SEIZURES? :NO ANY HISTORY OF CARDIAC ISSUES OR EVENTS? :NO DO YOU HAVE SLEEP APNEA? :NO ANY RECENT HEAD INJURY? :NO DO YOU HAVE ANY NEW INFECTIONS? :NO IS THERE A CHANCE YOU COULD BE ? :NO ARE YOU BREAST FEEDING? :NO WHEN DID YOU LAST EAT? : -09/02/20 @ 0530 WHEN DID YOU LAST DRINK? : -09/02/20 @0700 WHAT DID YOU LAST DRINK? : -[employer] A[employer] NAME OF PERSON DRIVING YOU HOME? : - GIGI DO YOU HAVE ANY OTHER QUESTIONS OR CONCERNS? : -DENIES GENERAL: - -. FALL RISK SCREENING: SCREENING :NO FALLS REPORTED IN THE LAST YEAR PAIN SCREENING: PATIENT HAS A COMPLAINT OF ACUTE OR CHRONIC PAIN :YES LOCATION OF PAIN:LEFT SHOULDER, RIGHT SHOULDER, BOTH SHOULDERS, LOW BACK INTENSITY OF PAIN (SCALE OF 1 TO 10):7 WHAT DOES YOUR PAIN FEEL LIKE:ACHING, CONTINOUS, TENDER DURATION:CONSTANT NURSING NOTE: - -. CURRENT MEDICATIONS TAKING METHOTREXATE 2.5 MG TABLET 9 TABS ORALLY WEEKLY TAKING LOSARTAN POTASSIUM 25 MG TABLET 1 TABLET ORALLY ONCE A DAY TAKING VITAMIN B-12 5000 MCG LOZENGE ORALLY TAKING MULTIVITAMIN ADULT - TABLET ORALLY TAKING POTASSIUM 99 MG TABLET 1 TABLET ORALLY ONCE A DAY TAKING DULOXETINE HCL 20 MG CAPSULE DELAYED RELEASE PARTICLES 1 CAPSULE ORALLY TWICE A DAY TAKING LYRICA 300 MG CAPSULE 1 CAPSULE ORALLY TWICE A DAY TAKING FLUTICASONE PROPIONATE 50 MCG/ACT SUSPENSION 1 SPRAY IN EACH NOSTRIL NASALLY ONCE A DAY NOT-TAKING LANCETS - MISCELLANEOUS DIRECTED TOPICALLY DAILY NOT-TAKING ESCITALOPRAM OXALATE 10 MG TABLET 1 TABLET ORALLY ONCE A DAY NOT-TAKING CETIRIZINE HCL 10 MG TABLET 1 TABLET ORALLY ONCE A DAY MEDICATION LIST REVIEWED AND RECONCILED WITH THE PATIENT PAST MEDICAL HISTORY DIABETES: DIET CONTROLLED SINCE GASTRIC BYPASS GERD: RESOLVED AFTER GASTRIC BYPASS HYPERLIPIDEMIA ARTHRITIS HYPERTENSION 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 MELISA: NO TREATMENT SINCE GASTRIC BYPASS: UNABLE TO TOLERATE MASK IN THE PAST FIBROMYALGIA ALLERGIES LATEX: HSU SKIN VICODIN: PASS OUT TAPE: HSU SKIN CONTRAST DYE: HIVES ADIS SCAN: ANAPHYLAXIS LOVENOX: ITCHING FERROUS GLUCONATE: CONSTIPATION - SIDE EFFECTS VELCRO SUTURES: INFECTION PERCOCET: RACING HEART - SIDE EFFECTS TRAMADOL HCL: RACING HEART - SIDE EFFECTS VITAL SIGNS WT 261.4 LBS, HT 5'6", BMI 42.19 INDEX, BP 149/69 MM HG, HR 68 /MIN, RR 16 /MIN, TEMP 96.9 F, OXYGEN SAT % 96%, NA INITIALS SC 11:29. EXAMINATION GENERAL EXAMINATION: THE PATIENT IS ALERT, ORIENTED TIMES THREE AND COOPERATIVE. LUNGS ARE CLEAR TO AUSCULTATION. HEART SHOWS REGULAR RHYTHM, NO MURMURS AND NO GALLOPS. ASSESSMENTS INTERVERTEBRAL DISC DISORDERS WITH RADICULOPATHY, LUMBAR REGION - M51.16 (PRIMARY) TREATMENT INTERVERTEBRAL DISC DISORDERS WITH RADICULOPATHY, LUMBAR REGION [facility] FLUORO GUIDE SPINE INJECTION (PAIN)[id number] MEDICATION: VALIUM TAB 10MG ORALLY (DIAZEPAM)MARY OWENS 09/02/2020 12:01:41 PM > VERIFIED KIRSTY,TOM 09/02/2020 12:07:13 PM > ADMINISTERED IV LACTATED RINGER'S AT [facility] 09/02/2020 12:22:14 PM > 22G IV ACCESS OBTAINED IN [facility]. PATIENT TOLERATED WELL. IV LR RUNNING AT [facility] 09/02/2020 1:35:52 PM > IV D/C'D AT 1305. 200ML OF LR TOTAL IS GIVEN. COMPLETION OF PROCEDURAL VISIT WHEN [facility] 1:36:36 PM > CRITERIA IS MET MED: PAIN BENADRYL TAB 25MG ORALLY DIPHENHYDRAMINEMARY OWENS 09/02/2020 12:01:29 PM > VERIFIED KIRSTYDAVONTE 09/02/2020 12:07:35 PM > ADMINISTERED PROCEDURES PAIN NURSING RECORD PROCEDURE IN ROOM 1235, PHYSICIAN IN ROOM 1251, START 1257, FINISH 1304, PHYSICIAN OUT OF ROOM 1305, OUT OF ROOM 1316, ECG NORMAL SINUS, PATIENT SHIELDED YES, SAFETY STRAP YES, PREP BETADINE BY Prieto RAY RN, DRESSING TEGADERM BY DR DEVLIN LOC: 1. ALERT, ORIENTED [facility] 09/02/2020 12:58:19 PM > RESP: 1. REGULAR, NO DYSPNEA [facility] 09/02/2020 1258 PM > COLOR: [facility] 09/02/2020 12:58:24 PM > 1. PINK SKIN: 1. WARM, DRY [facility] 09/02/2020 12:58:34 PM > POSITION: 1. PRONE [facility] 09/02/2020 12:58:43 PM > VITALS: [facility] 09/02/2020 1241 PM > HR 64, 165/79, 95% R16 [facility] 09/02/2020 1:00:22 PM > HR 60, 156/75, 98%, R16 [facility] 09/02/2020 1:06:31 PM > HR63, 171/81, 97% R16 EXIT VITALS - HR 60, 159/71, 100% R16 NOTES Blaire LOFTON RN COMPLETION OF PROCEDURE APPOINTMENT: POST PAIN 0, DRESSING SITE DRY AND INTACT, IV DISCONTINUED, SITE CLEAR, CATHETER INTACT, GAIT STEADY, TEACHING COMPLETED, PATIENT ACKNOWLEDGES UNDERSTANDING YES, PROCEDURE APPOINTMENT COMPLETED AT 1325 PRE PROCEDURE DIAGNOSIS LUMBAR DISC DISORDER WITH RADICULOPATHY POST PROCEDURE DIAGNOSIS LUMBAR DISC DISORDER WITH RADICULOPATHY PROCEDURE LUMBAR EPIDURAL STEROID INJECTION UNDER FLUOROSCOPIC GUIDANCE SURGEON DR. ANDRIY DEVLIN PROPERTY APPRAISER NONE ANESTHESIA LOCAL PRE PROCEDURE NOTE THE PATIENT HAS A HISTORY OF CHRONIC LOW BACK PAIN. I EVALUATED THE PATIENT AND REVIEWED THE CHART. I WENT OVER THE RISKS, ALTERNATIVES, AND BENEFITS ASSOCIATED WITH THIS PROCEDURE. THE PATIENT WOULD LIKE TO PROCEED AND GIVE CONSENT TO PERFORMED THE PROCEDURE. THE PATIENT DENIES UNEXPLAINABLE WEIGHT LOSS, FEVER, CHILLS, OR NEW CHANGES IN URINARY OR BOWEL CONTROL. PATIENT IS COVID NEGATIVE. DESCRIPTION OF PROCEDURE THE PATIENT WAS BROUGHT TO THE PROCEDURE ROOM AND PLACED IN THE PRONE POSITION. THE LUMBOSACRAL AREA WAS CLEANED WITH BETADINE SOLUTION AND DRAPED ASEPTICALLY. THE PROCEDURE WAS DONE UNDER STERILE CONDITIONS. A TIMEOUT WAS PERFORMED WHERE THE CONSENTED SITE WAS VERIFIED WITH EVERYONE IN THE ROOM. UNDER FLUOROSCOPIC GUIDANCE, THE TARGET POINT WAS SELECTED AT THE INTERLAMINAR LEVEL OF L4-L5. I CONFIRMED AGAIN THE SITE OF TARGET. LIDOCAINE WAS USED TO NUMB THE SKIN AND THE SUBCUTANEOUS TISSUE BELOW IT. EPIDURAL TUOHY NEEDLE, 17-GAUGE, WAS ADVANCED UNDER FLUOROSCOPIC GUIDANCE AND FOLLOWING PATIENT FEEDBACK UNTIL THE EPIDURAL SPACE WAS REACHED 9 CM DEEP INTO THE SKIN BY THE LOSS OF RESISTANCE TECHNIQUE. ISOVUE-M DYE 30%, 0.25 ML, WAS INJECTED SHOWING ADEQUATE SPREAD OF THE DYE. THEN, A SOLUTION OF 3 ML OF NORMAL SALINE WITH DEPO-MEDROL 40 MG WAS INJECTED SLOWLY FOLLOWING PATIENT FEEDBACK. THE MEDICATIONS WERE VERIFIED WITH THE NURSE. THERE WAS NO EVIDENCE OF BLOOD, PARESTHESIA OR CEREBROSPINAL FLUID DURING THE PROCEDURE. THE PATIENT WAS SENT TO THE RECOVERY ROOM. THE PATIENT WAS MOVING THE EXTREMITIES AND DOING WELL. THERE WERE NO COMPLICATIONS DURING THE PROCEDURE. ESTIMATED BLOOD LOSS WAS LESS THAN 5 ML. FLUOROSCOPY TIME WAS 25 SECONDS POST PROCEDURE NOTE DEPENDING ON THE RESULTS, CONSIDER TRANSFORAMINAL EPIDURAL L3-L4, L4-L5. FOR THE NEXT PROCEDURE, CONSIDER IV SEDATION. THE PATIENT WILL BE SEEN IN A FOLLOW UP IN THE NEXT FEW WEEKS. I AM LOOKING FOR LONG LASTING RELIEF FOR THE PATIENT WITH THIS INTERVENTION. INSTRUCTIONS WERE GIVEN, QUESTIONS WERE ANSWERED, AND THE PATIENT EXPRESSED UNDERSTANDING AND AGREES WITH THE PLAN. I, GABE SALVADOR, DOCUMENTED THE ABOVE INFORMATION ACTING A SCRIBE FOR DR. DEVLIN. I HAVE REVIEWED THE ABOVE DOCUMENT, WRITTEN BY GABE SALVADOR, SENIOR QUALITY ANALYST, AND I VERIFY THAT IT IS ACCURATE. PROCEDURE CODES 52171 LUMBAR/SACRAL W/ IMAGING DISPOSITION & COMMUNICATION FOLLOW UP FOLLOW UP APPOINTMENT WITH SOLUTION DESIGN ENGINEER. (REASON: POST LUMBAR EPIDURAL STEROID INJECTION) ELECTRONICALLY SIGNED BY ANDRIY DEVLIN MD, MD ON 09/03/2020 AT 02:46 PM EST DISCLAIMER : THIS IS A VISIT SUMMARY EXTRACTED FROM THE [employer] CHART. IT IS NOT A COPY OF THE [employer] PROGRESS NOTE. [facility]
== END ==
LOC: M PAIN 11:40
PROVIDERS: ATTEND Anesthesiology
DX: M51.16 Intervertebral disc disorders with radiculopathy, lumbar region (principal); M79.7 Fibromyalgia; Z88.5 Allergy status to narcotic agent; Z88.8 Allergy status to other drugs, medicaments and biological substances; Z91.040 Latex allergy status; Z91.041 Radiographic dye allergy status; Z91.09 Other allergy status, other than to drugs and biological substances; E66.01 Morbid (severe) obesity due to excess calories; Z68.41 Body mass index [BMI] 40.0-44.9, adult; Z79.899 Other long term (current) drug therapy
CPT/HCPCS: 62323; J1030; Q9967

== ENCOUNTER → 2020-09-16 | Outpatient (CLI) | payer MEDICARE, MEDICAID ==
[~2020-09-16] MED LIST changes: -ISOVUE-M 300 61% 15ML VIAL As Ordered ONE; -LIDOCAINE 1% SDV 30ML VIAL As Ordered ONE; -diazePAM 5MG TABLET As Ordered ONE; -diphenhydrAMINE 25MG CAP As Ordered ONE; -methylPREDNISolone SUSP 40MG/ML 1ML VIAL (DEPO MEDROL) As Ordered ONE
--- NOTE | 2020-09-20 02:29 | ECWPNPC ---
PATIENT NAME: DAYTON YOUSIF : 1960 GENDER: FEMALE VISIT DATE: 09/16/2020 DISCHARGE DATE: 09/16/20 1119 VISIT LOCKED DATE TIME: PHYSICIAN: JOSE ENRIQUE CORTES RESOURCE: JOSE ENRIQUE CORTES REASON FOR APPOINTMENT 1. POST LUMBAR EPIDURAL STEROID INJECTION L3-L4, L4-L5 HISTORY OF PRESENT ILLNESS DEPRESSION SCREENING: PHQ-2 (2015 EDITION) LITTLE INTEREST OR PLEASURE IN DOING THINGS?NOT AT ALL FEELING DOWN, DEPRESSED, OR HOPELESS?NOT AT ALL TOTAL SCORE0 GENERAL: HERE FOR POST PROCEDURE FOLLOW-UP. HAD LUMBAR EPIDURAL STEROID INJECTION ON 09/02/2020. REPORTING MARKED REDUCTION IN LOW BACK PAIN. REPORTING RESOLUTION OF RIGHT LEG PAIN. STATES SHE HAS STARTED WALKING FOR EXERCISE.-. FALL RISK SCREENING: SCREENING : NO FALLS REPORTED IN THE LAST YEAR. PAIN SCREENING: PATIENT HAS A COMPLAINT OF ACUTE OR CHRONIC PAIN :YES LOCATION OF PAIN:LOW BACK INTENSITY OF PAIN (SCALE OF 1 TO 10):0 WHAT DOES YOUR PAIN FEEL LIKE:THROBBING DURATION:CONTINOUS, CONSTANT, ALL DAY PAIN IS INCREASED BY:ACTIVITIES PAIN IS DECREASED BY:OTHERS " NOTHING ' NURSING NOTE: -. PAIN CENTER INTAKE QUESTIONS: DO YOU HAVE A HISTORY OF MRSA? :NO DO YOU TAKE A BLOOD THINNERS? :NO DO YOU HAVE ANY BLEEDING DISORDERS? :NO ANY NEW NUMBNESS OR WEAKNESS IN YOUR LEGS OR ARMS? :NO ANY PACEMAKER,DEFIBRILLATOR, OR DORSAL COLUMN STIMULATOR? :NO DO YOU HAVE ANY RASHES OR OPEN SORES? :NO ARE YOU ALLERGIC TO IV DYE? :YES HIVES ARE YOU DIABETIC? :NO ANY NEW PROBLEMS WITH YOUR MEDICATIONS? :NO HAVE YOU RECEIVED A VACCINE IN THE PAST 30 DAYS? :NO DO YOU PLAN TO RECEIVE A VACCINE IN THE NEXT 21 DAYS? :YES IF SO WHAT VACCINE AND WHEN? 1ST COVID 09/17/2020 DO YOU NEED ANY PRESCRIPTION? :NO DO YOU TAKE ANY IMMUNOSUPPRESSIVE MEDICATIONS? :NO DO YOU HAVE ANY KIDNEY OR LIVER DISEASE? :NO IS THERE A CHANCE YOU COULD BE ? :NO ARE YOU BREAST FEEDING? :NO CURRENT MEDICATIONS TAKING METHOTREXATE 2.5 MG TABLET 9 TABS ORALLY WEEKLY TAKING LOSARTAN POTASSIUM 25 MG TABLET 1 TABLET ORALLY ONCE A DAY TAKING VITAMIN B-12 5000 MCG LOZENGE ORALLY TAKING MULTIVITAMIN ADULT - TABLET ORALLY TAKING POTASSIUM 99 MG TABLET 1 TABLET ORALLY ONCE A DAY TAKING LYRICA 300 MG CAPSULE 1 CAPSULE ORALLY TWICE A DAY TAKING FLUTICASONE PROPIONATE 50 MCG/ACT SUSPENSION 1 SPRAY IN EACH NOSTRIL NASALLY ONCE A DAY TAKING DULOXETINE HCL 20 MG CAPSULE DELAYED RELEASE PARTICLES 1 CAPSULE ORALLY TWICE A DAY NOT-TAKING ESCITALOPRAM OXALATE 10 MG TABLET TAKE ONE TABLET BY MOUTH EVERY DAY NOT-TAKING LANCETS - MISCELLANEOUS DIRECTED TOPICALLY DAILY NOT-TAKING CETIRIZINE HCL 10 MG TABLET 1 TABLET ORALLY ONCE A DAY MEDICATION LIST REVIEWED AND RECONCILED WITH THE PATIENT PAST MEDICAL HISTORY GERD: RESOLVED AFTER GASTRIC BYPASS DIABETES: DIET CONTROLLED SINCE GASTRIC BYPASS HYPERLIPIDEMIA ARTHRITIS HYPERTENSION 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 MELISA: NO TREATMENT SINCE GASTRIC BYPASS: UNABLE TO TOLERATE MASK IN THE PAST FIBROMYALGIA CHRONIC LOW BACK PAIN ALLERGIES LATEX: HSU SKIN VICODIN: PASS OUT TAPE: HSU SKIN CONTRAST DYE: HIVES ADIS SCAN: ANAPHYLAXIS LOVENOX: ITCHING FERROUS GLUCONATE: CONSTIPATION - SIDE EFFECTS VELCRO SUTURES: INFECTION PERCOCET: RACING HEART - SIDE EFFECTS TRAMADOL HCL: RACING HEART - SIDE EFFECTS SOCIAL HISTORY GENERAL: TOBACCO USE ARE YOU A:FORMER SMOKER HOW LONG HAS IT BEEN SINCE YOU LAST SMOKED?5-10 YEARS LATEX QUESTIONNAIRE LATEX ALLERGY : HAVE YOU EVER DEVELOPED ANY TYPE OF REACTION AFTER HANDLING LATEX PRODUCTS SUCH RUBBER GLOVES, CONDOMS, DIAPHRAGMS, BALLOONS, SOCKS, OR UNDERWEAR?YES - PLEASE INDICATE :RUBBER GLOVES DOCUMENTED LATEX ALLERGY LATEX ALLERGY : HAVE YOU EVER DEVELOPED ANY TYPE OF REACTION DURING OR AFTER DENTAL APPOINTMENT, VAGINAL/RECTAL EXAMINATION, SURGICAL PROCEDURE, OR ANY OTHER EXPOSURE?NO LATEX RISK : HAVE YOU EVER HAD ANY DIFFICULTY BREATHING OR HIVES AFTER EATING OR HANDLING ANY FRUITS, OR VEGETABLES; SUCH KIWI, BANANAS, STONE FRUITS, OR CHESTNUTSNO LATEX RISK : DO YOU HAVE A PREVIOUS PERSONAL HISTORY OF MORE THAN NINE SURGERIES, SPINA BIFIDA, OR REPEATED CATHERIZATIONS? NO LATEX RISK : ARE YOU FREQUENTLY EXPOSED TO LATEX PRODUCTS IN YOUR OCCUPATION?NO DATE ASKED : 09/16/2020 ALCOHOL USE: NO. BMI CARE GOAL FOLLOW-UP ABOVE NORMAL BMI FOLLOW-UPDIETARY MANAGEMENT EDUCATION, GUIDANCE, AND COUNSELING ALCOHOL SCREENING POINTS: 0, INTERPRETATION: NEGATIVE. RECREATIONAL DRUG USE DENIES. CAFFEINE NONE. SEXUAL HX HAD SEX IN THE LAST 12 MONTHS (VAGINAL, ORAL, OR ANAL)?: YES, WITH: MEN ONLY, HAVE YOU EVER HAD AN STD?: NO. HIV / HEP-C SCREENING HIV TEST OFFERED TO PATIENT:YES DATE OFFERED:01/01/2020 TEST ACCEPTED:NO HEP-C TEST OFFERED TO PATIENT:YES DATE OFFERED:01/01/2020 REASON:PATIENT DECLINED TEST ACCEPTED:NO REASON:PATIENT DECLINED BROCHURE PROVIDED TO PATIENTNO BAPTIST NO RESTORATIONISM BELIEFS THAT WOULD IMPACT HEALTH CARE. LANGUAGE [place]. LEARNING BARRIERS / SPECIAL NEEDS CHANGE FROM LAST VISIT?NO 11/15/2019 BARRIERS TO LEARNING?NO HEARING IMPAIRED?NO VISION IMPAIRED?YES WEARS GLASSES :CORRECTIVE LENSES COGNITIVELY IMPAIRED?NO READINESS TO LEARN?YES LEARNING PREFERENCES?NO LEARNING CAPABILITIES PRESENT?YES EMOTIONAL BARRIERS?NO SPECIAL DEVICES?NO CRM CONSULTANT NEEDED?NO DOMESTIC VIOLENCE STATUS: DO YOU FEEL SAFE IN YOUR ENVIRONMENT?YES OCCUPATION: DISABLED SSI. DIET: REGULAR. EXERCISE: NO REGULAR EXERCISE. MARITAL STATUS: . OTHERS AT HOME: SPOUSE. - WAS THE PROVIDER NOTIFIED OF ANY PERTINENT INFO?YES HAS THE PATIENT BEEN EDUCATED REGARDING HIS/HER PLAN OF CARE?YES HAS THE PATIENT BEEN EDUCATED REGARDING PAIN, THE RISK FOR PAIN, THE IMPORTANCE OF EFFECTIVE PAIN MANAGEMENT, AND THE PAIN ASSESSMENT PROCESS?YES HOUSING: RENTS APARTMENT. ADVANCE DIRECTIVE ADVANCE DIRECTIVE DISCUSSED WITH PATIENT:YES PT STATES THAT SHE DOES NOT HAVE HCP AT THIS TIME, DECLINES INFORMATION OR ASSISTANCE WITH PAPERWORK QUIT 2007. REVIEW OF SYSTEMS CONSTITUTIONAL: ANY RECENT FEVER NO . CHILLS NO . WEIGHT CHANGE OF UNKNOWN REASONS NO . GASTROENTEROLOGY: NEW UNEXPLAINABLE CHANGES IN BOWEL CONTROL NO . CONSTIPATION NO . GENITOURINARY: ANY NEW CHANGE IN BLADDER CONTROL? NO . NEUROLOGY: NEW ONSET DIZZINESS OR NEUROLOGICAL CHANGES NOT MENTIONED NO . NEW NUMBNESS OR PAIN PATTERNS NOT MENTIONED AND PERTINENT TO TODAY'S VISIT NO . CARDIOLOGY: NEW CHEST PRESSURE NO . PATIENT DENIES NO . RESPIRATORY: UNEXPLAINABLE COUGH NO . NEW SHORTNESS OF BREATH NO . VITAL SIGNS WT 266.6 LBS, HT 5'6", BMI 43.03 INDEX, BP 153/68 MM HG, HR 68 /MIN, RR 18 /MIN, TEMP 95.5 F, OXYGEN SAT % 99%, SAFE IN ENV? (Y/N) YES, NA INITIALS AW [id number].TRACI AMBRIZ. EXAMINATION GENERAL EXAMINATION: GENERALAWAKE,ALERT ,PLEASANT . PSYCHAFFECT NORMAL . LUNGS:LUNG STARK ARE CLEAR TO AUSCULTATION BILATERALLY. GOOD MOVEMENT OF AIR . HEART:S1, S2 IN A REGULAR RATE AND RHYTHM. NO SIGNIFICANT MURMURS, RUBS OR GALLOPS NOTED . ASSESSMENTS INTERVERTEBRAL DISC DISORDERS WITH RADICULOPATHY, LUMBAR REGION - M51.16 (PRIMARY) OTHER CHRONIC PAIN - G89.29 TREATMENT INTERVERTEBRAL DISC DISORDERS WITH RADICULOPATHY, LUMBAR REGION NOTES: CONTINUE HOME EXERCISE/WALKING PROGRAM. OTHER CHRONIC PAIN PAIN PROCEDURE LOGDATE OF PROCEDURE1PROCEDURE:LUMBAR EPIDURAL STERIOD INJECTIONAMOUNT OF PRE SEDATEVALIUM 10MG, BENADRYL 25MGRESULT:MARKED REDUCTION IN PAIN CONTINUES TODAY PROCEDURE CODES FA211 ESTABILISHED PATIENT [facility] CHARGE DISPOSITION & COMMUNICATION FOLLOW UP 3 MONTHS (REASON: RESPONDS WELL TO LUMBAR EPIDURAL STEROID INJECTION/CHRONIC LOW BACK PAIN) ELECTRONICALLY SIGNED BY RENATO SPENCER ON 09/19/2020 AT 03:16 PM EST DISCLAIMER : THIS IS A VISIT SUMMARY EXTRACTED FROM THE [employer] CHART. IT IS NOT A COPY OF THE [employer] PROGRESS NOTE. MARY
== END ==
LOC: M PAIN 10:30
PROVIDERS: ATTEND Nurse Practitioner Family
DX: M51.16 Intervertebral disc disorders with radiculopathy, lumbar region (principal); G89.29 Other chronic pain; E11.9 Type 2 diabetes mellitus without complications; M79.7 Fibromyalgia; Z98.84 Bariatric surgery status; Z87.891 Personal history of nicotine dependence; Z88.5 Allergy status to narcotic agent; Z88.8 Allergy status to other drugs, medicaments and biological substances; Z91.040 Latex allergy status; Z91.041 Radiographic dye allergy status; Z91.09 Other allergy status, other than to drugs and biological substances; E66.01 Morbid (severe) obesity due to excess calories; Z68.41 Body mass index [BMI] 40.0-44.9, adult; Z79.899 Other long term (current) drug therapy

== ENCOUNTER → 2020-11-14 | Outpatient (CLI) | payer MEDICARE, MEDICAID ==
--- NOTE | 2020-11-14 14:28 | REP ---
INDICATION: ACUTE PAIN LFT KNEE COMPARISON: None TECHNIQUE: Five views FINDINGS: . There is slight asymmetric patellofemoral joint space narrowing. There is minimal tricompartmental marginal osteophytosis. The compartments are symmetric and relatively well maintained with the exception of the patellofemoral joint space narrowing. There is no acute fracture or destructive osseous lesion. IMPRESSION: Early degenerative changes <Electronically signed by Guzman Tanner > 11/14/20 [id number]
== END ==
LOC: M CLY 13:43
PROVIDERS: ATTEND Physician Assistant
DX: M17.12 Unilateral primary osteoarthritis, left knee (principal); M25.562 Pain in left knee
CPT/HCPCS: 73564; G0463

== ENCOUNTER 2020-12-15 16:00 | Outpatient (RCR) | payer MEDICAID, MEDICARE | END 2021-01-07 | LOC: M PT 16:00 | PROVIDERS: ATTEND Orthopaedic Surgery | DX: M25.522 Pain in left elbow (principal); M25.562 Pain in left knee ==

== ENCOUNTER → 2020-12-17 | Outpatient (CLI) | payer MEDICARE, MEDICAID ==
--- NOTE | 2020-12-19 05:01 | ECWPNPC ---
PATIENT NAME: DAYTON YOUSIF : 1960 GENDER: FEMALE VISIT DATE: 12/17/2020 DISCHARGE DATE: 12/17/20936 VISIT LOCKED DATE TIME: PHYSICIAN: JOSE ENRIQUE CORTES RESOURCE: JOSE ENRIQUE CORTES REASON FOR APPOINTMENT 1. RESPONDS WELL TO LUMBAR EPIDURAL STEROID INJECTION/CHRONIC LOW BACK PAIN HISTORY OF PRESENT ILLNESS GENERAL: HERE FOR FOLLOW-UP OF CHRONIC LOW BACK PAIN WITH LEFT LEG RADICULAR SYMPTOMS. RESPONDED WELL TO LUMBAR EPIDURAL STEROID INJECTION THAT WAS DONE AT THE END OF AUGUST. HAD MARKED REDUCTION IN PAIN AND IMPROVED ACTIVITY TOLERANCE FOR 3 MONTHS AND NOW PAIN HAS RETURNED TO BASELINE. DURING HER FIRST EPIDURAL SHE HAD TACHYCARDIA DURING PROCEDURE. FOLLOWS WITH CARDIOLOGY. DENIES ANY PROBLEMS DURING HER SECOND EPIDURAL. ALSO TAKING METHOTREXATE PRESCRIBED BY DR. VEE,RAIL OPERATOR. SHE WOULD LIKE TO HAVE ANOTHER EPIDURAL STEROID INJECTION. WE WILL NEED CARDIOLOGY CLEARANCE FROM . DENIES CHEST PAINS OR PALPITATIONS. -. FALL RISK SCREENING: SCREENING ONE FALLS REPORTED IN THE LAST YEAR BROKE HER LEFT ELBOW. PAIN SCREENING: PATIENT HAS A COMPLAINT OF ACUTE OR CHRONIC PAIN :YES LOCATION OF PAIN:LOW BACK INTENSITY OF PAIN (SCALE OF 1 TO 10):3 WHAT DOES YOUR PAIN FEEL LIKE:INTERMITTENT, SORE DURATION:INTERMITTENT PAIN IS INCREASED BY:ACTIVITIES PAIN IS DECREASED BY:SITTING, OTHERS NOTHING HELPS NURSING NOTE: -. PAIN CENTER INTAKE QUESTIONS: DO YOU HAVE A HISTORY OF MRSA? :NO DO YOU TAKE A BLOOD THINNERS? :NO DO YOU HAVE ANY BLEEDING DISORDERS? :NO ANY NEW NUMBNESS OR WEAKNESS IN YOUR LEGS OR ARMS? :NO ANY PACEMAKER,DEFIBRILLATOR, OR DORSAL COLUMN STIMULATOR? :NO DO YOU HAVE ANY RASHES OR OPEN SORES? :NO ARE YOU ALLERGIC TO IV DYE? :YES HIVES ARE YOU DIABETIC? :NO ANY NEW PROBLEMS WITH YOUR MEDICATIONS? :NO HAVE YOU RECEIVED A VACCINE IN THE PAST 30 DAYS? :NO 1ST : 09/17/2020 2ND : 10/08/2020 DO YOU PLAN TO RECEIVE A VACCINE IN THE NEXT 21 DAYS? :NO DO YOU NEED ANY PRESCRIPTION? :NO DO YOU TAKE ANY IMMUNOSUPPRESSIVE MEDICATIONS? :NO DO YOU HAVE ANY KIDNEY OR LIVER DISEASE? :NO IS THERE A CHANCE YOU COULD BE ? :NO ARE YOU BREAST FEEDING? :NO CURRENT MEDICATIONS TAKING FLUTICASONE PROPIONATE 50 MCG/ACT SUSPENSION 1 SPRAY IN EACH NOSTRIL NASALLY ONCE A DAY TAKING CETIRIZINE HCL 10 MG TABLET 1 TABLET ORALLY ONCE A DAY TAKING METHOTREXATE 2.5 MG TABLET 9 TABS ORALLY WEEKLY TAKING LOSARTAN POTASSIUM 25 MG TABLET 1 TABLET ORALLY ONCE A DAY TAKING VITAMIN B-12 5000 MCG LOZENGE ORALLY TAKING MULTIVITAMIN ADULT - TABLET ORALLY TAKING POTASSIUM 99 MG TABLET 1 TABLET ORALLY ONCE A DAY TAKING LYRICA 300 MG CAPSULE 1 CAPSULE ORALLY TWICE A DAY TAKING DULOXETINE HCL 20 MG CAPSULE DELAYED RELEASE PARTICLES 1 CAPSULE ORALLY TWICE A DAY TAKING PREDNISONE 20 MG TABLET 2 TABLETS ORALLY ONCE A DAY NOT-TAKING FLUTICASONE PROPIONATE 50 MCG/ACT SUSPENSION 1 SPRAY IN EACH NOSTRIL NASALLY ONCE A DAY MEDICATION LIST REVIEWED AND RECONCILED WITH THE PATIENT PAST MEDICAL HISTORY GERD: RESOLVED AFTER GASTRIC BYPASS DIABETES: DIET CONTROLLED SINCE GASTRIC BYPASS HYPERLIPIDEMIA ARTHRITIS HYPERTENSION 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 NIELSEN 12/2016 COLONOSCOPY 05/2011 COLONOSCOPY: ALANNAH PRADO 05/2017 ARTHROSCOPY SHOULDER WITH MANIPULATION- DR CORTES 04/2018 LEFT ELBOW SURGERY SOS 09/29/2020 SOCIAL HISTORY GENERAL: TOBACCO USE ARE YOU A:FORMER SMOKER HOW LONG HAS IT BEEN SINCE YOU LAST SMOKED?5-10 YEARS LATEX QUESTIONNAIRE LATEX ALLERGY : HAVE YOU EVER DEVELOPED ANY TYPE OF REACTION AFTER HANDLING LATEX PRODUCTS SUCH RUBBER GLOVES, CONDOMS, DIAPHRAGMS, BALLOONS, SOCKS, OR UNDERWEAR?YES - PLEASE INDICATE :RUBBER GLOVES DOCUMENTED LATEX ALLERGY LATEX ALLERGY : HAVE YOU EVER DEVELOPED ANY TYPE OF REACTION DURING OR AFTER DENTAL APPOINTMENT, VAGINAL/RECTAL EXAMINATION, SURGICAL PROCEDURE, OR ANY OTHER EXPOSURE?NO LATEX RISK : HAVE YOU EVER HAD ANY DIFFICULTY BREATHING OR HIVES AFTER EATING OR HANDLING ANY FRUITS, OR VEGETABLES; SUCH KIWI, BANANAS, STONE FRUITS, OR CHESTNUTSNO LATEX RISK : DO YOU HAVE A PREVIOUS PERSONAL HISTORY OF MORE THAN NINE SURGERIES, SPINA BIFIDA, OR REPEATED CATHERIZATIONS? NO LATEX RISK : ARE YOU FREQUENTLY EXPOSED TO LATEX PRODUCTS IN YOUR OCCUPATION?NO DATE ASKED : 12/17/2020 ALCOHOL USE: NO. BMI CARE GOAL FOLLOW-UP ABOVE NORMAL BMI FOLLOW-UPDIETARY MANAGEMENT EDUCATION, GUIDANCE, AND COUNSELING ALCOHOL SCREENING POINTS: 0, INTERPRETATION: NEGATIVE. RECREATIONAL DRUG USE DENIES. CAFFEINE NONE. SEXUAL HX HAD SEX IN THE LAST 12 MONTHS (VAGINAL, ORAL, OR ANAL)?: YES, WITH: MEN ONLY, HAVE YOU EVER HAD AN STD?: NO. HIV / HEP-C SCREENING HIV TEST OFFERED TO PATIENT:YES DATE OFFERED:09/22/2020 TEST ACCEPTED:NO HEP-C TEST OFFERED TO PATIENT:YES DATE OFFERED:09/22/2020 REASON:PATIENT DECLINED TEST ACCEPTED:NO REASON:PATIENT DECLINED BROCHURE PROVIDED TO PATIENTNO [place] NO UATSDIN BELIEFS THAT WOULD IMPACT HEALTH CARE. LANGUAGE URDU. LEARNING BARRIERS / SPECIAL NEEDS CHANGE FROM LAST VISIT?NO BARRIERS TO LEARNING?NO HEARING IMPAIRED?NO VISION IMPAIRED?YES WEARS GLASSES :CORRECTIVE LENSES COGNITIVELY IMPAIRED?NO READINESS TO LEARN?YES LEARNING PREFERENCES?NO LEARNING CAPABILITIES PRESENT?YES EMOTIONAL BARRIERS?NO SPECIAL DEVICES?YES :CANE NEEDED DEPUTY SHERIFF CUSTODY NEEDED?NO DOMESTIC VIOLENCE STATUS: DO YOU FEEL SAFE IN YOUR ENVIRONMENT?YES OCCUPATION: DISABLED SSI. DIET: REGULAR. EXERCISE: NO REGULAR EXERCISE. MARITAL STATUS: . OTHERS AT HOME: SPOUSE. - WAS THE PROVIDER NOTIFIED OF ANY PERTINENT INFO?YES HAS THE PATIENT BEEN EDUCATED REGARDING HIS/HER PLAN OF CARE?YES HAS THE PATIENT BEEN EDUCATED REGARDING PAIN, THE RISK FOR PAIN, THE IMPORTANCE OF EFFECTIVE PAIN MANAGEMENT, AND THE PAIN ASSESSMENT PROCESS?YES HOUSING: RENTS APARTMENT. ADVANCE DIRECTIVE ADVANCE DIRECTIVE DISCUSSED WITH PATIENT:YES PT STATES THAT SHE DOES NOT HAVE HCP AT THIS TIME, DECLINES INFORMATION OR ASSISTANCE WITH PAPERWORK QUIT 2007. HOSPITALIZATION/MAJOR DIAGNOSTIC PROCEDURE SURGERY RELATED EYE PAIN @ [facility] 01/05/2019 REVIEW OF SYSTEMS CONSTITUTIONAL: ANY RECENT FEVER NO . CHILLS NO . WEIGHT CHANGE OF UNKNOWN REASONS NO . GASTROENTEROLOGY: NEW UNEXPLAINABLE CHANGES IN BOWEL CONTROL NO . CONSTIPATION NO . GENITOURINARY: ANY NEW CHANGE IN BLADDER CONTROL? NO . NEUROLOGY: NEW ONSET DIZZINESS OR NEUROLOGICAL CHANGES NOT MENTIONED NO . NEW NUMBNESS OR PAIN PATTERNS NOT MENTIONED AND PERTINENT TO TODAY'S VISIT NO . CARDIOLOGY: NEW CHEST PRESSURE NO . PATIENT DENIES NO . RESPIRATORY: UNEXPLAINABLE COUGH NO . NEW SHORTNESS OF BREATH NO . VITAL SIGNS WT 268.0 LBS, HT 5'6", BMI 43.25 INDEX, BP 136/56 MM HG, HR 80 /MIN, RR 16 /MIN, TEMP 95.0 F, OXYGEN SAT % 96%, SAFE IN ENV? (Y/N) YES, NA INITIALS AW [id number].TRACI AMBRIZ. EXAMINATION GENERAL EXAMINATION: GENERAL AWAKE,ALERT ,PLEASANT . PSYCH AFFECT NORMAL . LUNGS: LUNG STARK ARE CLEAR TO AUSCULTATION BILATERALLY. GOOD MOVEMENT OF AIR . HEART: S1, S2 IN A REGULAR RATE AND RHYTHM. NO SIGNIFICANT MURMURS, RUBS OR GALLOPS NOTED . LUMBAR: PALPATION: + FOR PAIN OVER L/S SPINE. + FOR PAIN OVER L/S PARASPINALS SLE: POSITIVE OVER LEFT LEG AT 45 DEGREES. DIAGNOSTIC TESTS REVIEWED MRI L/S SPINE-11/01/19. ASSESSMENTS INTERVERTEBRAL DISC DISORDERS WITH RADICULOPATHY, LUMBOSACRAL REGION - M51.17 (PRIMARY) TREATMENT INTERVERTEBRAL DISC DISORDERS WITH RADICULOPATHY, LUMBOSACRAL REGION NOTES: SEND MEDICATION HOLD FOR METHOTREXATE TO -RHEUMATOLOGY I WILL SEND REQUESTS FOR CARDIOLOGY CLEARANCE TO DR.ROC DR. DEVLIN IS RECOMMENDING IV SEDATION FOR PROCEDURES IN THE FUTURE. PATIENT WILL BE SCHEDULED WITH DR. DEVLIN FOR PRE-SEDATE APPOINTMENT FOR LUMBAR EPIDURAL STEROID INJECTION. REVIEWED PRE PROCEDURE INFORMATION, PATIENT VERBALIZED UNDERSTANDING ILDA AMBRIZ. [facility] REASON:PATIENT HAD A TACHYCARDIC EPISODE DURING LUMBAR EPIDURAL STEROID INJECTION. REQUESTING CARDIOLOGY CLEARANCE FOR PLANNED LUMBAR EPIDURAL STEROID INJECTION PROCEDURE CODES FA211 ESTABILISHED PATIENT [facility] FACILITY CHARGE DISPOSITION & COMMUNICATION FOLLOW UP DR QUITA Momin IV SEDATION/REVIEW CARDIOLOGY CLEARANCE (REASON: LUMBAR EPIDURAL STEROID INJECTION WITH IV SEDATION) ELECTRONICALLY SIGNED BY RENATO SPENCER ON 12/18/2020 AT 10:44 AM EDT DISCLAIMER : THIS IS A VISIT SUMMARY EXTRACTED FROM THE [employer] CHART. IT IS NOT A COPY OF THE [employer] PROGRESS NOTE. MTDD
== END ==
LOC: M PAIN 09:00
PROVIDERS: ATTEND Nurse Practitioner Family
DX: M51.17 Intervertebral disc disorders with radiculopathy, lumbosacral region (principal); G89.29 Other chronic pain; M79.7 Fibromyalgia; Z98.84 Bariatric surgery status; Z87.891 Personal history of nicotine dependence; Z88.5 Allergy status to narcotic agent; Z88.8 Allergy status to other drugs, medicaments and biological substances; Z91.040 Latex allergy status; Z91.041 Radiographic dye allergy status; Z91.09 Other allergy status, other than to drugs and biological substances; E66.01 Morbid (severe) obesity due to excess calories; Z68.41 Body mass index [BMI] 40.0-44.9, adult; Z79.899 Other long term (current) drug therapy

== ENCOUNTER → 2021-01-05 | Outpatient (REF) | payer MEDICARE ==
[2021-01-05 11:29] LABS: BASO # 0.1 10^3/uL (0.0-0.2); BASO % 1.1 % (0.0-1.0); EOS # 0.1 10^3/uL (0.0-0.5); HEMATOCRIT 44.2 % (36.0-47.0); HEMOGLOBIN 13.7 g/dl (12.0-15.5); LYMPH # 1.9 10^3/uL (1.5-5.0); MEAN CORPUSCULAR HEMOGLOBIN 27.2 pg (27.0-33.0); MEAN CORPUSCULAR VOLUME 87.9 fl (80.0-96.0); MONO # 0.7 10^3/uL (0.0-0.8); MONO % 7.4 % (2.0-8.0); NEUTROPHILS # 6.2 10^3/uL (1.5-8.5); NEUTROPHILS % 69.2 % (36.0-66.0); PLATELET COUNT, AUTOMATED 346 10^3/uL (150-450); RED BLOOD COUNT 5.03 10^6/uL (4.00-5.40); WHITE BLOOD COUNT 8.9 10^3/uL (4.0-10.0)
[2021-01-05 11:50] LABS: HEMOGLOBIN A1c 5.6 %
[2021-01-05 11:58] LABS: ALBUMIN 3.6 GM/DL (3.2-5.2); BILIRUBIN,TOTAL 0.7 MG/DL (0.2-1.0); CALCIUM LEVEL 9.4 MG/DL (8.5-10.1); CHOLESTEROL RISK RATIO 3.654 (<5); CREATININE FOR GFR 1.06 MG/DL (0.55-1.30); GLOMERULAR FILTRATION RATE 56.5 (>51); MAGNESIUM LEVEL 2.3 MG/DL (1.8-2.4); POTASSIUM SERUM 4.7 MEQ/L (3.5-5.1); TOTAL PROTEIN 7.6 GM/DL (6.4-8.2)
== END ==
LOC: M SFHCCLAY 09:04
PROVIDERS: ATTEND Family Medicine
DX: E78.5 Hyperlipidemia, unspecified (principal); I10 Essential (primary) hypertension; E11.9 Type 2 diabetes mellitus without complications; K21.9 Gastro-esophageal reflux disease without esophagitis
CPT/HCPCS: 80053; 80061; 83036; 83735; 85025; G0463

== ENCOUNTER 2021-05-01 08:38 | Outpatient (CLI) | payer MEDICARE, MEDICAID ==
[~2021-05-01] VITALS: Ht 167.6 cm; Wt 118.2 kg
[~2021-05-01 08:38] MED LIST changes: +ALBUTEROL 90 MCG/ACT 8GM HFA INHALER INH PRN; +ALBUTEROL SULFATE 2.5 MG/0.5 ML INH NEB SOLN INH PRN; +EPINEPHrine INJ 1 MG/ML 1ML AMP IM PRN; +NS 1,000 ML IV SCH; +diphenhydrAMINE 50MG/ML VIAL (J1200) IV PRN; +methylPREDNISolone 125MG 2ML VIAL IV PRN
[2021-05-01 10:15] VITALS: BP 144/70
[2021-05-01 10:50] VITALS: BP 137/65
[2021-05-01] MEDS ORDERED: BAMLANIVIMAB 700 MG, ETESEVIMAB 1,400 MG in NS 250 ML IV ONE (11:00)
[2021-05-01 11:20] VITALS: BP 168/85
[2021-05-01 12:44] VITALS: BP 142/88
== END 2021-05-01 12:45 | disposition home or self-care (01) ==
LOC: M OPCLI4PR 08:38
PROVIDERS: ATTEND Family Medicine
DX: U07.1 COVID-19 (principal); Z88.5 Allergy status to narcotic agent; Z88.6 Allergy status to analgesic agent; Z91.040 Latex allergy status; Z88.8 Allergy status to other drugs, medicaments and biological substances; Z91.041 Radiographic dye allergy status

== ENCOUNTER → 2021-07-07 | Outpatient (CLI) | payer MEDICARE, MEDICAID ==
[~2021-07-07] MED LIST changes: -ALBUTEROL 90 MCG/ACT 8GM HFA INHALER INH PRN; -ALBUTEROL SULFATE 2.5 MG/0.5 ML INH NEB SOLN INH PRN; -EPINEPHrine INJ 1 MG/ML 1ML AMP IM PRN; +LOSA25TA13 PO; -LOSA25TA14 PO; -NS 1,000 ML IV SCH; +OMEP-173; -OMEP-218; +TIZA10TA; -TIZA4TAB4; -diphenhydrAMINE 50MG/ML VIAL (J1200) IV PRN; -methylPREDNISolone 125MG 2ML VIAL IV PRN
== END ==
LOC: M CLY 11:10
PROVIDERS: ATTEND Family Medicine
DX: R06.02 Shortness of breath (principal); U09.9 Post COVID-19 condition, unspecified

== ENCOUNTER → 2021-07-07 | Outpatient (CLI) | payer MEDICARE, MEDICAID | LOC: M RAD 08:12 | PROVIDERS: ATTEND Surgery | DX: R06.02 Shortness of breath (principal); U09.9 Post COVID-19 condition, unspecified; E66.01 Morbid (severe) obesity due to excess calories; Z98.84 Bariatric surgery status | CPT/HCPCS: 71046; 74240; G0463 ==

== ENCOUNTER → 2022-07-01 | Outpatient (REF) | payer MEDICARE, MEDICAID ==
[~2022-07-01] MED LIST changes: -ACET1TAB16 PO; +ACET300T48 PO
[2022-07-01 15:51] LABS: MAGNESIUM LEVEL 1.9 MG/DL (1.8-2.4)
[2022-07-01 15:52] LABS: ALBUMIN 3.2 G/DL (3.2-5.2); ALKALINE PHOSPHATASE 125 U/L (46-116); ALT/SGPT 19 U/L (7.0-40); AST/SGOT 20 U/L (<34); BILIRUBIN,TOTAL 0.5 MG/DL (0.3-1.2); BLOOD UREA NITROGEN 13 MG/DL (9-23); CARBON DIOXIDE LEVEL 25 MMOL/L (20-31); CHLORIDE LEVEL 109 MMOL/L (98-107); CHOLESTEROL LEVEL 146 MG/DL (<200); CHOLESTEROL RISK RATIO 3.31 (<5); CREATININE FOR GFR 0.95 MG/DL (0.55-1.30); GLOMERULAR FILTRATION RATE > 60.0 (>45); GLUCOSE, FASTING 74 MG/DL (74-106); HDL CHOLESTEROL 44.1 MG/DL (>40); LDL CHOLESTEROL 59.9 MG/DL (<100); NON-HDL-C 102 MG/DL; POTASSIUM SERUM 4.1 MMOL/L (3.5-5.1); SODIUM LEVEL 145 MMOL/L (136-145); TOTAL PROTEIN 6.7 G/DL (5.7-8.2); TRIGLYCERIDES LEVEL 210 MG/DL (<150)
== END ==
LOC: M SFHCCLAY 07:35
PROVIDERS: ATTEND Family Medicine
DX: E11.9 Type 2 diabetes mellitus without complications (principal)

== ENCOUNTER → 2022-07-15 | Outpatient (CLI) | payer MEDICAID, MEDICARE ==
[2022-07-15 18:18] LABS: BLOOD UREA NITROGEN 19 MG/DL (9-23); CALCIUM LEVEL 8.8 MG/DL (8.3-10.6); CARBON DIOXIDE LEVEL 27 MMOL/L (20-31); CHLORIDE LEVEL 110 MMOL/L (98-107); CREATININE FOR GFR 0.84 MG/DL (0.55-1.30); GLOMERULAR FILTRATION RATE > 60.0 (>45); GLUCOSE, FASTING 96 MG/DL (74-106); POTASSIUM SERUM 4.3 MMOL/L (3.5-5.1); SODIUM LEVEL 145 MMOL/L (136-145)
== END ==
LOC: M LAB 16:18
PROVIDERS: ATTEND Physician Assistant
DX: Z01.812 Encounter for preprocedural laboratory examination (principal); R10.812 Left upper quadrant abdominal tenderness; Z98.84 Bariatric surgery status

== ENCOUNTER → 2022-08-04 | Outpatient (CLI) | payer MEDICARE, MEDICAID | LOC: M PAIN 09:30 | PROVIDERS: ATTEND Anesthesiology | DX: M51.16 Intervertebral disc disorders with radiculopathy, lumbar region (principal); G89.29 Other chronic pain; E11.9 Type 2 diabetes mellitus without complications; I10 Essential (primary) hypertension; M06.9 Rheumatoid arthritis, unspecified; M79.7 Fibromyalgia; Z98.84 Bariatric surgery status; Z87.891 Personal history of nicotine dependence; Z88.5 Allergy status to narcotic agent; Z88.8 Allergy status to other drugs, medicaments and biological substances; Z91.040 Latex allergy status; Z91.041 Radiographic dye allergy status; Z91.09 Other allergy status, other than to drugs and biological substances; Z79.899 Other long term (current) drug therapy ==

== ENCOUNTER → 2022-08-10 | Outpatient (CLI) | payer MEDICARE, MEDICAID ==
[~2022-08-10] MED LIST changes: +GASTROGRAFIN SOLUTION 30ML As Ordered ONE; +ISOVUE-370 76% 100ML VIAL As Ordered ONE
== END ==
LOC: M RAD 07:57
PROVIDERS: ATTEND Surgery
DX: R10.812 Left upper quadrant abdominal tenderness (principal); Z98.84 Bariatric surgery status; K91.2 Postsurgical malabsorption, not elsewhere classified; N28.1 Cyst of kidney, acquired; D35.01 Benign neoplasm of right adrenal gland; Z90.49 Acquired absence of other specified parts of digestive tract
CPT/HCPCS: 74160; Q9963; Q9967

== ENCOUNTER → 2022-09-28 | Outpatient (CLI) | payer MEDICARE, MEDICAID ==
[~2022-09-28] MED LIST changes: -GASTROGRAFIN SOLUTION 30ML As Ordered ONE; -ISOVUE-370 76% 100ML VIAL As Ordered ONE
== END ==
LOC: M CLY 14:06
PROVIDERS: ATTEND Family Medicine
DX: M25.572 Pain in left ankle and joints of left foot (principal)

== ENCOUNTER → 2022-11-02 | Outpatient (CLI) | payer MEDICARE, MEDICAID ==
[~2022-11-02] MED LIST changes: +B-122500 PO; +ETAN50SY SC; +FLUT50SP17; +METO1TAB32 PO; -OMEP-173; +OMEP-173 PO; +POTA10808 PO; -PREG300C; +PREG300C PO; +SEMA2PEN SQ; +VITMTA PO
== END ==
LOC: M RAD 14:37
PROVIDERS: ATTEND Anesthesiology
DX: M51.16 Intervertebral disc disorders with radiculopathy, lumbar region (principal)

== ENCOUNTER → 2022-11-03 | Outpatient (CLI) | payer MEDICARE ==
[~2022-11-03] MED LIST changes: -B-122500 PO; -ETAN50SY SC; -FLUT50SP17; -METO1TAB32 PO; +OMEP-173; -OMEP-173 PO; -POTA10808 PO; +PREG300C; -PREG300C PO; -SEMA2PEN SQ; -VITMTA PO
== END ==
LOC: M PAIN 09:30
PROVIDERS: ATTEND Anesthesiology
DX: M79.10 Myalgia, unspecified site (principal); M79.18 Myalgia, other site; M53.3 Sacrococcygeal disorders, not elsewhere classified; E11.9 Type 2 diabetes mellitus without complications; E78.5 Hyperlipidemia, unspecified; M19.90 Unspecified osteoarthritis, unspecified site; I10 Essential (primary) hypertension; M06.9 Rheumatoid arthritis, unspecified; E55.9 Vitamin D deficiency, unspecified; M54.50 Low back pain, unspecified; G89.29 Other chronic pain; Z91.040 Latex allergy status; Z88.5 Allergy status to narcotic agent; Z91.041 Radiographic dye allergy status; Z88.8 Allergy status to other drugs, medicaments and biological substances; Z91.048 Other nonmedicinal substance allergy status
CPT/HCPCS: 76000; G0463

== ENCOUNTER → 2022-11-29 | Outpatient (REF) | payer MEDICARE ==
[2022-11-29 11:34] LABS: HEMATOCRIT 40.9 % (36.0-47.0); HEMOGLOBIN 12.6 g/dl (12.0-15.5); MEAN CORPUSCULAR HEMOGLOBIN 27.1 pg (27.0-33.0); MEAN CORPUSCULAR HGB CONC 30.8 g/dl (32.0-36.5); PLATELET COUNT, AUTOMATED 331 10^3/uL (150-450); RED BLOOD COUNT 4.65 10^6/uL (4.00-5.40); WHITE BLOOD COUNT 6.9 10^3/uL (4.0-10.0)
[2022-11-29 12:01] LABS: FREE T4 0.86 NG/DL (0.89-1.76); THYROID STIMULATING HORMONE 1.654 uIU/ML (0.55-4.78)
[2022-11-29 12:02] LABS: HEMOGLOBIN A1c 5.3 % (4.0-6.0)
[2022-11-29 12:04] LABS: ALBUMIN 3.2 G/DL (3.2-5.2); ALKALINE PHOSPHATASE 125 U/L (46-116); ALT/SGPT 18 U/L (7.0-40); AST/SGOT 16 U/L (<34); BILIRUBIN,TOTAL 0.6 MG/DL (0.3-1.2); BLOOD UREA NITROGEN 14 MG/DL (9-23); CARBON DIOXIDE LEVEL 28 MMOL/L (20-31); CHLORIDE LEVEL 109 MMOL/L (98-107); CHOLESTEROL LEVEL 154 MG/DL (<200); CHOLESTEROL RISK RATIO 3.59 (<5); CREATININE FOR GFR 0.87 MG/DL (0.55-1.30); GLOMERULAR FILTRATION RATE > 60.0 (>45); GLUCOSE, FASTING 75 MG/DL (74-106); HDL CHOLESTEROL 42.8 MG/DL (>40); LDL CHOLESTEROL 60.4 MG/DL (<100); MAGNESIUM LEVEL 1.9 MG/DL (1.8-2.4); NON-HDL-C 111.2 MG/DL; POTASSIUM SERUM 4.1 MMOL/L (3.5-5.1); SODIUM LEVEL 143 MMOL/L (136-145); TOTAL PROTEIN 6.9 G/DL (5.7-8.2); TRIGLYCERIDES LEVEL 254 MG/DL (<150)
== END ==
LOC: M SFHCCLAY 09:18
PROVIDERS: ATTEND Family Medicine
DX: E11.9 Type 2 diabetes mellitus without complications (principal); I10 Essential (primary) hypertension; E78.5 Hyperlipidemia, unspecified

== ENCOUNTER → 2022-11-29 | Outpatient (CLI) | payer MEDICARE ==
[~2022-11-29] MED LIST changes: +B-122500 PO; +ETAN50SY SC; +FLUT50SP17; +METO1TAB32 PO; -OMEP-173; +OMEP-173 PO; +POTA10808 PO; -PREG300C; +PREG300C PO; +SEMA2PEN SQ; +VITMTA PO
== END ==
LOC: M CLY 09:40
PROVIDERS: ATTEND Family Medicine
DX: M25.532 Pain in left wrist (principal)

== ENCOUNTER 2022-12-02 08:47 | Day surgery (SDC) | payer MEDICARE, MEDICAID ==
[~2022-12-02] VITALS: Ht 167.6 cm; Wt 109.3 kg
[~2022-12-02 08:47] MED LIST changes: +BSS IRRIG/VANCO(10MG)/TOBRA(5MG)/EPINEPH(1:1000-0.5CC)500ML BAG-ORONLY IR ONE; +CEFUROXIME 1MG/0.1ML INTRACAMERAL INJ As Ordered ONE; +LIDOCAINE 1% SDV 5ML VIAL As Ordered ONE; +LIDOCAINE 3.5 % 1ML OPHTH TOPICAL GEL OU ONE; +OFLOXACIN 0.3 % (OCUFLOX) OPTH SOL 5ML OD ONE; +PHENYLEPHRINE 10% OPHTH SOL 5ML OD PRN
[2022-12-02] MEDS ORDERED: MIDAZOLAM INJ 2MG/2ML VIAL As Ordered ONE ×2 (09:39→10:35)
[2022-12-02] MEDS ORDERED: fentaNYL 100 MCG/2 ML INJECTION As Ordered ONE (09:40)
[2022-12-02] MEDS: CYCLOPENTOLATE 1% OPHTH SOLN 2ML BTL OD SCH ×2 (09:52→09:53)
[2022-12-02] MEDS: PHENYLEPHRINE 2.5% OPHTH SOL 2ML OD SCH ×2 (09:52→09:53)
[2022-12-02] MEDS: TROPICAMIDE 1% OPHTH SOLN 15ML OD SCH (09:53)
[2022-12-02 10:55] VITALS: BP 162/72
== END 2022-12-02 11:10 | disposition home or self-care (01) ==
LOC: M SDC 08:47
PROVIDERS: ATTEND Ophthalmology
DX: H25.11 Age-related nuclear cataract, right eye (principal); H40.811 Glaucoma with increased episcleral venous pressure, right eye; I10 Essential (primary) hypertension; E11.9 Type 2 diabetes mellitus without complications; K44.9 Diaphragmatic hernia without obstruction or gangrene; Z98.84 Bariatric surgery status; M79.7 Fibromyalgia; G47.33 Obstructive sleep apnea (adult) (pediatric); Z79.899 Other long term (current) drug therapy; Z91.040 Latex allergy status; Z91.041 Radiographic dye allergy status; Z88.5 Allergy status to narcotic agent; Z88.8 Allergy status to other drugs, medicaments and biological substances; M81.0 Age-related osteoporosis without current pathological fracture
CPT/HCPCS: 66183; 66984; C1783; J0697; J2250; J3010; V2632

== ENCOUNTER 2023-01-05 06:04 | Day surgery (SDC) | payer MEDICARE, MEDICAID ==
[~2023-01-05] VITALS: Ht 167.6 cm; Wt 106.6 kg
[~2023-01-05 06:04] MED LIST changes: -CEFUROXIME 1MG/0.1ML INTRACAMERAL INJ As Ordered ONE; -LIDOCAINE 1% SDV 5ML VIAL As Ordered ONE; -OFLOXACIN 0.3 % (OCUFLOX) OPTH SOL 5ML OD ONE; +OFLOXACIN 0.3 % (OCUFLOX) OPTH SOL 5ML OS ONE; -PHENYLEPHRINE 10% OPHTH SOL 5ML OD PRN; +PHENYLEPHRINE 10% OPHTH SOL 5ML OS PRN
[2023-01-05] MEDS ORDERED: LIDOCAINE 1% SDV 5ML VIAL As Ordered ONE (06:35)
[2023-01-05] MEDS ORDERED: CEFUROXIME 1MG/0.1ML INTRACAMERAL INJ As Ordered ONE (06:37)
[2023-01-05] MEDS: PHENYLEPHRINE 2.5% OPHTH SOL 2ML OS SCH ×3 (06:40→06:49)
[2023-01-05] MEDS: TROPICAMIDE 1% OPHTH SOLN 15ML OS SCH ×3 (06:40→06:49)
[2023-01-05] MEDS: CYCLOPENTOLATE 1% OPHTH SOLN 2ML BTL OS SCH ×3 (06:40→06:49)
[2023-01-05] MEDS ORDERED: MIDAZOLAM INJ 2MG/2ML VIAL As Ordered ONE (07:10)
[2023-01-05] MEDS ORDERED: fentaNYL 100 MCG/2 ML INJECTION As Ordered ONE (07:30)
[2023-01-05] MEDS ORDERED: propofoL 200 MG/20 ML VIAL As Ordered ONE (07:37)
[2023-01-05 07:52] VITALS: BP 164/76; TEMP 97.2; O2SAT 94
== END 2023-01-05 08:15 | disposition home or self-care (01) ==
LOC: M SDC 06:04
PROVIDERS: ATTEND Ophthalmology
DX: H25.12 Age-related nuclear cataract, left eye (principal); H40.812 Glaucoma with increased episcleral venous pressure, left eye; I10 Essential (primary) hypertension; E11.9 Type 2 diabetes mellitus without complications; Z98.84 Bariatric surgery status; K44.9 Diaphragmatic hernia without obstruction or gangrene; M79.7 Fibromyalgia; M81.0 Age-related osteoporosis without current pathological fracture; Z91.040 Latex allergy status; Z91.041 Radiographic dye allergy status; Z88.5 Allergy status to narcotic agent; Z88.8 Allergy status to other drugs, medicaments and biological substances; Z79.899 Other long term (current) drug therapy
CPT/HCPCS: 66984; J0697; J2250; J3010; V2632

== ENCOUNTER → 2023-03-21 | Outpatient (CLI) | payer MEDICARE ==
[~2023-03-21] MED LIST changes: -BSS IRRIG/VANCO(10MG)/TOBRA(5MG)/EPINEPH(1:1000-0.5CC)500ML BAG-ORONLY IR ONE; -LIDOCAINE 3.5 % 1ML OPHTH TOPICAL GEL OU ONE; -OFLOXACIN 0.3 % (OCUFLOX) OPTH SOL 5ML OS ONE; -PHENYLEPHRINE 10% OPHTH SOL 5ML OS PRN; -PREG300C PO; +PREG300C2 PO; +TRIAMCINOLONE ACETONIDE SUSP 40MG/ML 1ML VIAL As Ordered ONE
== END ==
LOC: M PAIN 08:30
PROVIDERS: ATTEND Anesthesiology
DX: M79.18 Myalgia, other site (principal); G89.29 Other chronic pain; E11.9 Type 2 diabetes mellitus without complications; I10 Essential (primary) hypertension; M06.9 Rheumatoid arthritis, unspecified; M79.7 Fibromyalgia; Z98.84 Bariatric surgery status; Z87.891 Personal history of nicotine dependence; Z88.5 Allergy status to narcotic agent; Z88.8 Allergy status to other drugs, medicaments and biological substances; Z91.040 Latex allergy status; Z91.041 Radiographic dye allergy status; Z91.09 Other allergy status, other than to drugs and biological substances; Z79.85 Long-term (current) use of injectable non-insulin antidiabetic drugs; Z79.899 Other long term (current) drug therapy
CPT/HCPCS: 20552; J0665; J3301

== ENCOUNTER → 2023-04-27 | Outpatient (CLI) | payer OTHER ==
[~2023-04-27] MED LIST changes: -TRIAMCINOLONE ACETONIDE SUSP 40MG/ML 1ML VIAL As Ordered ONE
== END ==
LOC: M PAIN 09:00
PROVIDERS: ATTEND Anesthesiology
DX: Z53.29 Procedure and treatment not carried out because of patient's decision for other reasons (principal)

== ENCOUNTER → 2023-05-24 | Outpatient (CLI) | payer MEDICARE, MEDICAID | LOC: M PAIN 11:30 → M TMPAIN 11:30 | PROVIDERS: ATTEND Anesthesiology | DX: M79.10 Myalgia, unspecified site (principal); M54.50 Low back pain, unspecified; G89.29 Other chronic pain; Z98.84 Bariatric surgery status; Z87.891 Personal history of nicotine dependence; Z88.5 Allergy status to narcotic agent; Z88.8 Allergy status to other drugs, medicaments and biological substances; Z91.040 Latex allergy status; Z91.041 Radiographic dye allergy status; Z91.09 Other allergy status, other than to drugs and biological substances; Z79.85 Long-term (current) use of injectable non-insulin antidiabetic drugs; Z79.899 Other long term (current) drug therapy ==

== ENCOUNTER → 2023-06-06 | Outpatient (CLI) | payer MEDICARE, MEDICAID ==
[~2023-06-06] MED LIST changes: -FLUT50SP17; +FLUTISP
== END ==
LOC: M PAIN 11:30
PROVIDERS: ATTEND Anesthesiology
DX: M51.16 Intervertebral disc disorders with radiculopathy, lumbar region (principal); M47.816 Spondylosis without myelopathy or radiculopathy, lumbar region; G89.29 Other chronic pain; Z98.84 Bariatric surgery status; Z87.891 Personal history of nicotine dependence; Z88.5 Allergy status to narcotic agent; Z88.8 Allergy status to other drugs, medicaments and biological substances; Z91.040 Latex allergy status; Z91.09 Other allergy status, other than to drugs and biological substances; Z79.85 Long-term (current) use of injectable non-insulin antidiabetic drugs; Z79.899 Other long term (current) drug therapy
CPT/HCPCS: 76000; G0463

== ENCOUNTER → 2023-07-01 | Outpatient (REF) | payer OTHER, MEDICAID ==
[2023-07-01 18:20] LABS: MEAN CORPUSCULAR HEMOGLOBIN 28.8 pg (27.0-33.0); MEAN CORPUSCULAR HGB CONC 31.6 g/dl (32.0-36.5); MEAN CORPUSCULAR VOLUME 91.3 fl (80.0-96.0); PLATELET COUNT, AUTOMATED 287 10^3/uL (150-450); RED BLOOD COUNT 4.16 10^6/uL (4.00-5.40)
[2023-07-01 18:41] LABS: HEMOGLOBIN A1c 4.8 % (4.0-6.0)
[2023-07-01 18:54] LABS: ALBUMIN 2.9 G/DL (3.2-5.2); ALKALINE PHOSPHATASE 94 U/L (46-116); ALT/SGPT 21 U/L (7.0-40); AST/SGOT 17 U/L (<34); BILIRUBIN,TOTAL 0.5 MG/DL (0.3-1.2); BLOOD UREA NITROGEN 16 MG/DL (9-23); CALCIUM LEVEL 8.9 MG/DL (8.3-10.6); CARBON DIOXIDE LEVEL 27 MMOL/L (20-31); CHLORIDE LEVEL 112 MMOL/L (98-107); CREATININE FOR GFR 0.75 MG/DL (0.55-1.30); GLOMERULAR FILTRATION RATE > 60.0 (>45); GLUCOSE, FASTING 83 MG/DL (74-106); POTASSIUM SERUM 4.4 MMOL/L (3.5-5.1); SODIUM LEVEL 145 MMOL/L (136-145); TOTAL PROTEIN 6.2 G/DL (5.7-8.2)
[2023-07-01 18:55] LABS: FREE T4 0.89 NG/DL (0.89-1.76); THYROID STIMULATING HORMONE 1.531 uIU/ML (0.55-4.78)
== END ==
LOC: M SFHCCLAY 10:22
PROVIDERS: ATTEND Family Medicine
DX: E11.9 Type 2 diabetes mellitus without complications (principal); I10 Essential (primary) hypertension

== ENCOUNTER 2023-08-09 09:03 | Outpatient (RCR) | payer MEDICAID, OTHER | END 2023-08-10 | LOC: M PT 09:03 | PROVIDERS: ATTEND Anesthesiology | DX: M54.50 Low back pain, unspecified (principal); M79.10 Myalgia, unspecified site ==

== ENCOUNTER 2023-08-11 09:46 | Outpatient (RCR) | payer OTHER | END 2023-09-08 | LOC: M PT 09:46 | PROVIDERS: ATTEND Anesthesiology | DX: M54.50 Low back pain, unspecified (principal); M79.10 Myalgia, unspecified site ==

== ENCOUNTER → 2023-09-19 | Outpatient (CLI) | payer OTHER, MEDICAID ==
[2023-09-19 10:52] LABS: BASO # 0.1 10^3/uL (0.0-0.2); BASO % 1.4 % (0.0-1.0); EOS # 0.2 10^3/uL (0.0-0.5); EOS % 2.5 % (0.0-3.0); HEMOGLOBIN 12.5 g/dl (12.0-15.5); LYMPH # 2.5 10^3/uL (1.5-5.0); LYMPH % 35.2 % (24.0-44.0); MEAN CORPUSCULAR HEMOGLOBIN 28.3 pg (27.0-33.0); MEAN CORPUSCULAR HGB CONC 31.3 g/dl (32.0-36.5); MEAN CORPUSCULAR VOLUME 90.7 fl (80.0-96.0); MONO # 0.5 10^3/uL (0.0-0.8); MONO % 7.3 % (2.0-8.0); NEUTROPHILS # 3.8 10^3/uL (1.5-8.5); NEUTROPHILS % 53.2 % (36.0-66.0); PLATELET COUNT, AUTOMATED 314 10^3/uL (150-450); RED BLOOD COUNT 4.41 10^6/uL (4.00-5.40); WHITE BLOOD COUNT 7.1 10^3/uL (4.0-10.0)
[2023-09-19 11:04] LABS: HEMOGLOBIN A1c 4.9 % (4.0-6.0)
[2023-09-19 11:05] LABS: INR 1.03; PARTIAL THROMBOPLASTIN TIME 28.4 SECONDS (24.8-34.2); PROTHROMBIN TIME 13.2 SECONDS (12.5-14.5)
[2023-09-19 11:14] LABS: IRON (FE) 46 UG/DL (50-170); PERCENT SATURATION 18.9 % (13.2-45.0); TOTAL IRON BINDING CAPACITY 244 UG/DL (250-425)
[2023-09-19 11:15] LABS: ALKALINE PHOSPHATASE 117 U/L (46-116); ALT/SGPT 26 U/L (7.0-40); AST/SGOT 19 U/L (<34); BILIRUBIN,TOTAL 0.4 MG/DL (0.3-1.2); BLOOD UREA NITROGEN 16 MG/DL (9-23); CALCIUM LEVEL 8.5 MG/DL (8.3-10.6); CARBON DIOXIDE LEVEL 28 MMOL/L (20-31); CHLORIDE LEVEL 110 MMOL/L (98-107); CREATININE FOR GFR 0.92 MG/DL (0.55-1.30); GLOMERULAR FILTRATION RATE > 60.0 (>45); GLUCOSE, FASTING 105 MG/DL (74-106); POTASSIUM SERUM 3.9 MMOL/L (3.5-5.1); SODIUM LEVEL 143 MMOL/L (136-145); TOTAL PROTEIN 6.5 G/DL (5.7-8.2)
[2023-09-19 11:17] LABS: FERRITIN 153.1 NG/ML (7.3-270.7)
== END ==
LOC: M LAB 10:10
PROVIDERS: ATTEND Orthopaedic Surgery
DX: Z01.818 Encounter for other preprocedural examination (principal); U07.1 COVID-19; Z86.39 Personal history of other endocrine, nutritional and metabolic disease; Z86.79 Personal history of other diseases of the circulatory system; M25.562 Pain in left knee

== ENCOUNTER 2023-09-26 08:16 | Outpatient (RCR) | payer OTHER, MEDICAID | END 2023-10-09 | LOC: M PT 08:16 | PROVIDERS: ATTEND Family Medicine | DX: M25.562 Pain in left knee (principal); Z96.652 Presence of left artificial knee joint ==

== ENCOUNTER → 2023-11-02 | Outpatient (CLI) | payer OTHER, MEDICAID | LOC: M PAIN 10:15 | PROVIDERS: ATTEND Anesthesiology | DX: M54.50 Low back pain, unspecified (principal); G89.29 Other chronic pain; M47.816 Spondylosis without myelopathy or radiculopathy, lumbar region; M79.10 Myalgia, unspecified site; E11.9 Type 2 diabetes mellitus without complications; E78.5 Hyperlipidemia, unspecified; I10 Essential (primary) hypertension; M06.9 Rheumatoid arthritis, unspecified; E55.9 Vitamin D deficiency, unspecified; Z87.891 Personal history of nicotine dependence; Z79.899 Other long term (current) drug therapy; Z88.5 Allergy status to narcotic agent; Z88.8 Allergy status to other drugs, medicaments and biological substances; Z91.040 Latex allergy status; Z91.048 Other nonmedicinal substance allergy status ==

== ENCOUNTER → 2023-11-08 | Outpatient (RCR) | payer OTHER, MEDICAID | LOC: M PT 10-13 12:39 | PROVIDERS: ATTEND Family Medicine | DX: Z47.1 Aftercare following joint replacement surgery (principal) ==

== ENCOUNTER → 2023-11-23 | Outpatient (CLI) | payer OTHER, MEDICAID | LOC: M PLAIMG 10:11 | PROVIDERS: ATTEND Anesthesiology | DX: M47.816 Spondylosis without myelopathy or radiculopathy, lumbar region (principal); R10.2 Pelvic and perineal pain ==

== ENCOUNTER 2023-12-08 09:50 | Outpatient (RCR) | payer OTHER, MEDICAID | END 2023-12-09 | LOC: M PT 09:50 | PROVIDERS: ATTEND Family Medicine | DX: M25.562 Pain in left knee (principal); Z96.652 Presence of left artificial knee joint; Z47.1 Aftercare following joint replacement surgery ==

== ENCOUNTER → 2023-12-26 | Outpatient (CLI) | payer OTHER, MEDICAID | LOC: M PAIN 11:45 | PROVIDERS: ATTEND Nurse Practitioner Family | DX: M51.16 Intervertebral disc disorders with radiculopathy, lumbar region (principal); G89.29 Other chronic pain; E11.9 Type 2 diabetes mellitus without complications; E78.5 Hyperlipidemia, unspecified; I10 Essential (primary) hypertension; M06.9 Rheumatoid arthritis, unspecified; E55.9 Vitamin D deficiency, unspecified; G47.33 Obstructive sleep apnea (adult) (pediatric); M79.7 Fibromyalgia; Z87.891 Personal history of nicotine dependence; Z98.84 Bariatric surgery status; Z79.899 Other long term (current) drug therapy; Z88.5 Allergy status to narcotic agent; Z88.8 Allergy status to other drugs, medicaments and biological substances; Z91.040 Latex allergy status; Z91.048 Other nonmedicinal substance allergy status ==

== ENCOUNTER 2024-01-05 09:11 | Outpatient (RCR) | payer OTHER, MEDICAID | END 2024-01-08 | LOC: M PT 09:11 | PROVIDERS: ATTEND Family Medicine | DX: Z96.652 Presence of left artificial knee joint (principal); M25.562 Pain in left knee ==

== ENCOUNTER → 2024-01-17 | Outpatient (CLI) | payer OTHER, MEDICAID | LOC: M PLAIMG 13:31 | PROVIDERS: ATTEND Family Medicine | DX: K63.9 Disease of intestine, unspecified (principal); R18.8 Other ascites ==

== ENCOUNTER → 2024-01-20 | Outpatient (CLI) | payer OTHER, MEDICAID | LOC: M PAIN 09:30 | PROVIDERS: ATTEND Nurse Practitioner Family | DX: M51.16 Intervertebral disc disorders with radiculopathy, lumbar region (principal); G89.29 Other chronic pain; E11.9 Type 2 diabetes mellitus without complications; E78.5 Hyperlipidemia, unspecified; I10 Essential (primary) hypertension; M06.9 Rheumatoid arthritis, unspecified; E55.9 Vitamin D deficiency, unspecified; G47.33 Obstructive sleep apnea (adult) (pediatric); M79.7 Fibromyalgia; Z98.84 Bariatric surgery status; Z87.891 Personal history of nicotine dependence; Z79.899 Other long term (current) drug therapy; Z88.5 Allergy status to narcotic agent; Z88.8 Allergy status to other drugs, medicaments and biological substances; Z91.040 Latex allergy status; Z91.048 Other nonmedicinal substance allergy status ==

== ENCOUNTER 2024-02-22 11:40 | Emergency (ER) | payer OTHER, MEDICAID ==
[~2024-02-22] VITALS: Ht 167.6 cm; Wt 92.7 kg
[2024-02-22] MEDS ORDERED: FOLI400T13 PO (11:48)
[2024-02-22] MEDS ORDERED: METH-1164 PO (16:59)
[2024-02-22 17:06] VITALS: BP 172/74; TEMP 96.6; O2SAT 99
== END 2024-02-22 17:07 | disposition home or self-care (01) ==
LOC: M ED 11:40
DX: M62.830 Muscle spasm of back (principal); M54.50 Low back pain, unspecified; Z91.041 Radiographic dye allergy status; Z88.5 Allergy status to narcotic agent; Z88.8 Allergy status to other drugs, medicaments and biological substances; Z91.09 Other allergy status, other than to drugs and biological substances; Z79.899 Other long term (current) drug therapy

== ENCOUNTER 2024-03-14 08:51 | Emergency (ER) | payer OTHER, MEDICAID ==
[~2024-03-14] VITALS: Ht 167.6 cm; Wt 90.9 kg
[~2024-03-14 08:51] MED LIST changes: +FOLI400T13 PO; +METH-1164 PO
[2024-03-14] MEDS: ACETAMINOPHEN 500 MG TAB PO ONE (09:36)
[2024-03-14] MEDS: BOOSTRIX VACCINE (TETANUS/DIPHTH/ACEL. PERTUSSIS) 0.5ML SYR IM.IMMUN ONE (10:09)
[2024-03-14 11:00] VITALS: BP 143/67
[2024-03-14 11:06] VITALS: O2SAT 95
[2024-03-14 11:52] VITALS: TEMP 98
== END 2024-03-14 12:05 | disposition home or self-care (01) ==
LOC: M ED 08:51 → EDBD 08:51 → M ED 12:05
DX: S80.01XA Contusion of right knee, initial encounter (principal); S80.02XA Contusion of left knee, initial encounter; S93.401A Sprain of unspecified ligament of right ankle, initial encounter; W01.10XA Fall on same level from slipping, tripping and stumbling with subsequent striking against unspecified object, initial encounter; Y92.009 Unspecified place in unspecified non-institutional (private) residence as the place of occurrence of the external cause; Y93.9 Activity, unspecified; Y99.9 Unspecified external cause status; M06.9 Rheumatoid arthritis, unspecified; Z79.899 Other long term (current) drug therapy

== ENCOUNTER → 2024-03-16 | Outpatient (CLI) | payer OTHER, MEDICAID | LOC: M PAIN 08:30 | PROVIDERS: ATTEND Anesthesiology | DX: M51.16 Intervertebral disc disorders with radiculopathy, lumbar region (principal); E11.9 Type 2 diabetes mellitus without complications; E78.5 Hyperlipidemia, unspecified; I10 Essential (primary) hypertension; M19.90 Unspecified osteoarthritis, unspecified site; M48.061 Spinal stenosis, lumbar region without neurogenic claudication; M06.9 Rheumatoid arthritis, unspecified; E55.9 Vitamin D deficiency, unspecified; G47.33 Obstructive sleep apnea (adult) (pediatric); M79.7 Fibromyalgia; G89.29 Other chronic pain; Z87.891 Personal history of nicotine dependence; Z79.899 Other long term (current) drug therapy; Z88.5 Allergy status to narcotic agent; Z88.8 Allergy status to other drugs, medicaments and biological substances; Z91.040 Latex allergy status; Z91.041 Radiographic dye allergy status; Z91.048 Other nonmedicinal substance allergy status ==

== ENCOUNTER → 2024-04-05 | Outpatient (REF) | payer OTHER, MEDICAID ==
[2024-04-05 11:11] LABS: CLOSTRIDIUM DIFFICILE PCR NEGATIVE (NEGATIVE)
== END ==
LOC: M LAB REF 09:09
PROVIDERS: ATTEND Physician Assistant
DX: K75.81 Nonalcoholic steatohepatitis (NASH) (principal); K21.9 Gastro-esophageal reflux disease without esophagitis; R93.3 Abnormal findings on diagnostic imaging of other parts of digestive tract; R14.1 Gas pain; R19.5 Other fecal abnormalities; R94.5 Abnormal results of liver function studies

== ENCOUNTER → 2024-04-20 | Outpatient (CLI) | payer OTHER, MEDICAID | LOC: M PAIN 15:00 | PROVIDERS: ATTEND Anesthesiology | DX: M47.816 Spondylosis without myelopathy or radiculopathy, lumbar region (principal); G89.29 Other chronic pain; M54.50 Low back pain, unspecified; E11.9 Type 2 diabetes mellitus without complications; E78.5 Hyperlipidemia, unspecified; I10 Essential (primary) hypertension; M19.90 Unspecified osteoarthritis, unspecified site; M48.061 Spinal stenosis, lumbar region without neurogenic claudication; E55.9 Vitamin D deficiency, unspecified; G47.33 Obstructive sleep apnea (adult) (pediatric); M79.7 Fibromyalgia; Z87.891 Personal history of nicotine dependence; Z79.899 Other long term (current) drug therapy; Z88.5 Allergy status to narcotic agent; Z88.8 Allergy status to other drugs, medicaments and biological substances; Z91.040 Latex allergy status; Z91.041 Radiographic dye allergy status; Z91.048 Other nonmedicinal substance allergy status ==

== ENCOUNTER → 2024-11-06 | Outpatient (CLI) | payer MEDICARE, MEDICAID ==
[~2024-11-06] MED LIST changes: -CYCL5TAB PO; +CYCL5TAB4 PO; -POTA10808 PO; +POTA10809 PO
== END ==
LOC: M RAD 11:54
PROVIDERS: ATTEND Family Medicine
DX: R05.1 Acute cough (principal)

== ENCOUNTER → 2024-11-06 | Outpatient (CLI) | payer MEDICARE, MEDICAID | LOC: M CLY 10:54 | PROVIDERS: ATTEND Family Medicine | DX: R05.1 Acute cough (principal); Z53.9 Procedure and treatment not carried out, unspecified reason ==

== ENCOUNTER → 2025-05-13 | Outpatient (CLI) | payer MEDICARE, MEDICAID | LOC: M WHC 16:07 | PROVIDERS: ATTEND Family Medicine | DX: R10.32 Left lower quadrant pain (principal); Z53.9 Procedure and treatment not carried out, unspecified reason ==

== ENCOUNTER → 2025-06-11 | Outpatient (CLI) | payer MEDICARE, MEDICAID | LOC: M RAD 09:24 | PROVIDERS: ATTEND Family Medicine | DX: R10.32 Left lower quadrant pain (principal) ==

== ENCOUNTER → 2025-06-28 | Outpatient (REF) | payer MEDICARE, MEDICAID ==
[2025-06-28 18:24] LABS: CHOLESTEROL LEVEL 112 MG/DL (<200); CHOLESTEROL RISK RATIO 2.24 (<5); IRON (FE) 57 UG/DL (50-170); LDL CHOLESTEROL 45.2 MG/DL (<100); MAGNESIUM LEVEL 1.9 MG/DL (1.8-2.4); NON-HDL-C 62.2 MG/DL; TRIGLYCERIDES LEVEL 85 MG/DL (<150)
[2025-06-28 18:26] LABS: FREE T4 1.01 NG/DL (0.89-1.76)
[2025-06-28 18:27] LABS: VITAMIN B12 LEVEL 453 PG/ML (211-911)
[2025-06-28 18:53] LABS: ESTIMATED AVERAGE GLUCOSE 85.0 MG/DL (60-110)
== END ==
LOC: M SFHCCLAY 10:44
PROVIDERS: ATTEND Family Medicine
DX: I10 Essential (primary) hypertension (principal); E78.5 Hyperlipidemia, unspecified; E11.9 Type 2 diabetes mellitus without complications; Z98.84 Bariatric surgery status; E55.9 Vitamin D deficiency, unspecified